=== PATIENT | male | born 1950 | race Caucasian/White ===

== ENCOUNTER 2018-03-06 16:42 | Emergency (ER) | payer MEDICARE, SELFPAY ==
--- NOTE | 2018-03-06 16:43 | DI.RAD.S_ITS ---
PROCEDURE: XR CHEST 1V INDICATIONS: chest pain TECHNIQUE: One view of the chest was acquired. COMPARISON: [facility], CHEST FOR PICC PLACEMENT, 10/02/2017, 13:30. [facility], CHEST 1 VIEW, 10/02/2017, 7:57. FINDINGS: Surgical changes and devices: Left-sided cardiac pacer. AVR. Lungs and pleura: No pleural effusions or pneumothorax. Lungs are clear. Mediastinum: Mediastinal contours appear normal. Heart size is normal. Bones and chest wall: No suspicious bony lesions. Overlying soft tissues appear unremarkable. IMPRESSION: No radiographic evidence of acute cardiopulmonary pathology. Dictated by: Cody Lauren M.D. on 03/06/2018 at 17:07 Approved by: Cody Lauren M.D. on 03/06/2018 at 17:08
[2018-03-06 16:44] VITALS: BP 117/73; PULSE 83; RESP 18; TEMP 36.3; O2SAT 95; BMI 32.8
--- NOTE | 2018-03-06 16:47 | ED.CHESTPAIN ---
HPI - Chest Pain General Chief Complaint: Chest Pain Stated Complaint: Chest Pain Time Seen by Provider: 03/06/18 16:43 Source: patient and EMS Mode of arrival: EMS Limitations: no limitations History of Present Illness HPI narrative: Patient presents to the ED via EMS for evaluation of defibrillator discharge just prior to arrival. He states he had felt largely well over the course of the day immediately prior to the discharge she fell in very odd. He has been otherwise well and free of complaint other than some nausea and dry heaves yesterday. He denies any other history of defibrillator discharge. He denies chest pain or shortness of breath Duration: intermittent Associated symptoms: nausea Related Data Home Medications Medication Instructions Recorded Confirmed citalopram 40 mg PO QDAY #0 03/04/11 digoxin [Lanoxin] 0.25 mg PO Q DAY #0 03/04/11 spironolactone 25 mg PO QDAY #0 03/04/11 terazosin 4 mg PO HS #0 03/04/11 ALBUTEROL SULFATE (#PROVENTIL HFA) 0.09 mg IH #0 07/26/11 ASPIRIN (#ASPIRIN) 81 mg PO QDAY #0 07/26/11 IPRATROPIUM BROMIDE (#IPRATROPIUM 0.02 IH #0 07/26/11 BROMIDE) OXYCODONE HCL (#PERCOLONE / 5 mg PO PRN #0 07/26/11 ROXICODONE) POTASSIUM CHLORIDE (K-NIURKA) 20 meq PO QDAY #0 07/26/11 albuterol sulfate [Proventil HFA] 0.09 mg IH PRN #0 07/26/11 beclomethasone dipropionate [Qvar] 0.08 mg IH PRN #0 07/26/11 pravastatin [Pravachol] 20 mg PO QDAY #0 07/26/11 diazepam 5 mg PO HS #0 09/26/17 Previous Rx's Medication Instructions Recorded amoxicillin-pot clavulanate 875 mg PO BID #10 tab 10/07/17 [Augmentin] prednisone 40 mg PO QDAY #20 tab 10/07/17 Review of Systems Review of Systems All systems reviewed & are unremarkable except as noted in HPI and below Constitutional Denies chills, Denies fever(s), Denies lethargy and Denies weakness Eyes Denies change in vision, Denies eye discharge, Denies irritation and Denies loss of vision Cardiovascular Reports chest pain, Denies dyspnea and Denies dyspnea on exertion Comments: only at time of discharge Respiratory Denies cough, Denies dyspnea, Denies dyspnea on exertion and Denies wheezing Gastrointestinal Gastrointestinal: Denies abdominal pain, Denies change in bowel habits, Denies diarrhea, Denies nausea and Denies vomiting Genitourinary Denies hematuria, Denies flank pain, Denies urinary incontinence and Denies urinary urgency Musculoskeletal Denies back pain, Denies muscle weakness, Denies numbness and Denies tingling Integumentary/Breasts Denies pruritus, Denies erythema, Denies rash and Denies wounds Neurologic Denies loss of vision, Denies numbness, Denies tingling and Denies weakness Allergic/Immunologic Denies wheezing PFSH Medical History Cardiac defibrillator in place (Acute) Surgical History S/P TAVR (transcatheter aortic valve replacement) (Acute) Social History Smoking Status: Former smoker Exam Narrative Exam Narrative: Pleasant 67M in no obvious distress Initial Vital Signs Initial Vital Signs: Vital Signs Temperature 97.4 F L 03/06/18 16:44 Pulse Rate 83 03/06/18 16:44 Respiratory Rate 18 03/06/18 16:44 Blood Pressure 117/73 03/06/18 16:44 Pulse Oximetry 95 03/06/18 16:44 Const General: cooperative and well developed Nutritional Appearance: well nourished Orientation: alert, awake, oriented x3 and not confused [facility] Head: normocephalic and atraumatic Ears: external ears normal and TM's normal bilaterally Nose: external nose normal and No nasal discharge Face and sinus: sinuses nontender, face symmetric, no sinus tenderness and No dry mucous membranes Mouth: oral mucosae normal and moist mucous membranes Teeth and gingiva: dentition normal Throat: tonsils normal and uvula midline Chest Chest: normal inspection of the chest Resp Effort & Inspection: normal respiratory effort, able to speak in complete sentences, no respiratory distress and no use of accessory muscles Auscultation: clear to auscultation bilaterally, no rales, no rhonchi and no wheezes Cardio Rate: regular rate Rhythm: regular rhythm Heart Sounds: no click, no gallops, no murmurs and no rubs Pulses: normal peripheral pulses GI Inspection: non-distended Palpation: soft, no hepatosplenomegaly, No guarding, No pulsatile mass and No tender Auscultation: normal bowel sounds Back/Spine/Pelvis Back: No CVA tenderness Cervical Spine: cervical ROM normal and No pain with cervical ROM Thoracic/Lumbar Spine: thoracic and lumbar spine normal to inspection Skin General: no rashes or lesions noted, No jaundice and No petechiae Neuro General: alert, oriented x3 and no focal motor deficits Speech: speech normal Extrem General: full ROM, no clubbing, cyanosis or edema, no pedal edema and no calf tenderness Course Orders Ordered: ED Orders 03/06/18 16:43 XR chest 1V Stat EKG-12 Lead Stat 03/06/18 16:52 Complete Blood Count AUTO DIFF Stat Comprehensive Metabolic Panel Stat Lipase Stat Troponin with CK Cardiac Panel Stat 03/06/18 17:30 Digoxin Stat Sodium Chloride (Normal Saline 0.9%) 1,000 mls @ 150 mls/hr IV CONT KENNETH Last Admin: 03/06/18 17:11 Dose: 150 mls/hr Discontinued Medications Aspirin (Aspirin Chew) 324 mg PO NOW ONE Stop: 03/06/18 16:43 Last Admin: 03/06/18 17:03 Dose: Reevaluation(s) Reevaluation #1: patient continues to be symptom free. [employer] interrogated Call from interrogation service, notes a rapid V-tach was detected which required a shock. All parameters appear at baseline per interrogator service. Print out suggests VF however. Time: 16:58 Consultations Consultation #1: Discussion with Dr. Soto of [facility] cardiology. She is able to access his records as well as the defibrillator interrogation. She states he was in a rapid V-tach and appropriately discharged. She offers two (equally acceptable) options. First, the patient could be transferred to [facility] for observation. Secondly, increase bisoprolol from 5 mg to 10 mg and follow up closely as an outpatient. Patient is absolutely against the idea of any additional hospitalizations and would highly prefer to go home. Time: 18:04 Vital Signs - 8 hr 03/06/18 16:44 03/06/18 17:00 03/06/18 17:36 Temperature 97.4 F L Pulse Rate 83 81 63 Respiratory Rate 18 22 18 Blood Pressure 117/73 Blood Pressure [Left Arm] 117/48 L 115/56 L Pulse Oximetry 95 95 95 MDM - Chest Pain Medical Records Data Attestation: I reviewed the patient's medical records. Lab Data Attestation: I reviewed the patient's lab results. Result diagrams: 03/06/18 16:52 03/06/18 16:52 Lab Results 03/06/18 03/06/18 03/06/18 Range/Units 16:52 16:52 17:30 WBC 7.0 (4.5-11.0) X10^3/uL RBC 4.26 L (4.5-5.9) X10^6/uL Hgb 13.1 L (13.5-17.5) g/dL Hct 38.3 L (41-53) % MCV 89.9 (80-100) fL MCH 30.7 (26-34) PG MCHC 34.1 (30-36) % RDW 13.5 (11.6-14.8) % Plt Count 143 L (150-400) X10^3/uL Neut % (Auto) 65.6 (50-75) % Lymph % (Auto) 20.4 L (25-40) % [place]yer % (Auto) 10.0 (3-14) % Eos % (Auto) 2.8 (2-4) % Baso % (Auto) 1.2 (0-2) % Neut # (Auto) 4600 (7758-3363) /uL Sodium 140 (137-145) mmol/L Potassium 3.9 (3.4-5.1) mmol/L Chloride 96.0 L (98-107) mmol/L Carbon Dioxide 30.0 (22-32) mmol/L BUN 21.0 H (9-20) mg/dL Creatinine 1.10 (0.66-1.25) mg/dL Estimated GFR > 60.0 (>60) mL/min BUN/Creatinine Ratio 19.1 (6-22) Glucose 187 H (80-110) mg/dL Calcium 9.4 (8.4-10.2) mg/dL Total Bilirubin 0.5 (0.2-1.3) mg/dL AST 27 (17-59) IU/L ALT 34 (21-72) IU/L Alkaline Phosphatase 62 (38-126) U/L Total Creatine Kinase 91 (55-170) U/L Troponin I 0.026 (0.01-0.034) ng/mL Total Protein 7.1 (6.3-8.2) g/dL Albumin 4.4 (3.5-5.0) g/dL Globulin 2.7 (1.7-4.1) g/dL Albumin/Globulin Ratio 1.6 (1.0-2.8) Lipase 69 (23-300) U/L Digoxin 0.9 (0.8-2.0) ng/mL Imaging Data Chest x-ray: Radiologist's impression: PROCEDURE: XR CHEST 1V INDICATIONS: chest pain TECHNIQUE: One view of the chest was acquired. COMPARISON: [facility], , CHEST FOR PICC PLACEMENT, 10/02/2017, 13:30. [facility], CHEST 1 VIEW, 10/02/2017, 7:57. FINDINGS: Surgical changes and devices: Left-sided cardiac pacer. AVR. Lungs and pleura: No pleural effusions or pneumothorax. Lungs are clear. Mediastinum: Mediastinal contours appear normal. Heart size is normal. Bones and chest wall: No suspicious bony lesions. Overlying soft tissues appear unremarkable. IMPRESSION: No radiographic evidence of acute cardiopulmonary pathology. Dictated by: Cody Lauren M.D. on 03/06/2018 at 17:07 Approved by: Cody Lauren M.D. on 03/06/2018 at 17:08 ECG Data Attestation: I personally reviewed and interpreted this ECG as follows: Interpretation: Paced rhythm at 85BPM. NO ectopy NO ST segmental deviation or T wave inversion suggestive of ischemia Pacemaker model: [employer] Pacemaker function: normal pacer function Discharge Plan Departure Patient Disposition: Home, Self-Care Clinical Impression: Defibrillator discharge Instructions: DI for Automatic Cardioverter/Defibrillator Implantation Activity Restrictions/Additional Instructions: *You have been diagnosed with [ ventricular tachycardia and defibrillator discharge ] *What to do: Increase your Bisoprolol (Zebeta) from 5 mg daily to 10 mg daily *Otherwise take medications as directed *Follow up with your Dr. Reyes in the next few days. His office should call you tomorrow *Return to ER if you should have [recurrence of symptoms] [or] any new, worsening or concerning symptoms Prescriptions: No Action terazosin 2 MG capsule 4 mg PO HS Qty: 0 RF: 0 citalopram 20 MG tablet 40 mg PO QDAY Qty: 0 RF: 0 digoxin [Lanoxin] 250 MCG tablet 0.25 mg PO Q DAY Qty: 0 RF: 0 spironolactone 25 MG tablet 25 mg PO QDAY Qty: 0 RF: 0 ALBUTEROL SULFATE (#PROVENTIL HFA) 0.09 mg IH Qty: 0 RF: 0 ASPIRIN (#ASPIRIN) 81 mg PO QDAY Qty: 0 RF: 0 IPRATROPIUM BROMIDE (#IPRATROPIUM BROMIDE) 0.02 IH Qty: 0 RF: 0 POTASSIUM CHLORIDE (K-NIURKA) 20 meq PO QDAY Qty: 0 RF: 0 OXYCODONE HCL (#PERCOLONE / ROXICODONE) 5 mg PO PRN Qty: 0 RF: 0 pravastatin [Pravachol] 20 MG tablet 20 mg PO QDAY Qty: 0 RF: 0 beclomethasone dipropionate [Qvar] 80 MCG/PUFF aerosol 0.08 mg IH PRN Qty: 0 RF: 0 albuterol sulfate [Proventil HFA] 90 MCG/PUFF HFA aerosol inhaler 0.09 mg IH PRN Qty: 0 RF: 0 diazepam 5 MG tablet 5 mg PO HS Qty: 0 RF: 0 amoxicillin-pot clavulanate [Augmentin] 875 MG/125 MG tablet 875 mg PO BID Qty: 10 RF: 0 prednisone 20 MG tablet 40 mg PO QDAY Qty: 20 RF: 0
[2018-03-06 17:00] VITALS: BP 117/48; PULSE 81; RESP 22; O2SAT 95
[2018-03-06 17:00] LABS: Add Manual Diff / Slide Review NO; Basophils Percent Auto 1.2 % (0-2); Eosinophils Percent Auto 2.8 % (2-4); Hematocrit 38.3 % (41-53); Hemoglobin 13.1 g/dL (13.5-17.5); Lymphocytes Percent Auto 20.4 % (25-40); Mean Corpuscular HGB Conc 34.1 % (30-36); Mean Corpuscular Hemoglobin 30.7 PG (26-34); Mean Corpuscular Volume 89.9 fL (80-100); Neutrophils Absolute Auto 4600 /uL (3000-5900); Neutrophils Percent Auto 65.6 % (50-75); Platelet Count 143 X10^3/uL (150-400); Red Blood Cell Count 4.26 X10^6/uL (4.5-5.9); Red Cell Distribution Width 13.5 % (11.6-14.8)
[2018-03-06] MEDS: SODIUM CHLORIDE 0.9% 1,000 ML 150 ML IV (17:11)
[2018-03-06 17:18] LABS: Alanine Aminotransferase 34 IU/L (21-72); Albumin 4.4 g/dL (3.5-5.0); Albumin Globulin Ratio 1.6 (1.0-2.8); Alkaline Phosphatase 62 U/L (38-126); Aspartate Aminotransferase 27 IU/L (17-59); BUN Creatinine Ratio 19.1 (6-22); Bilirubin Total 0.5 mg/dL (0.2-1.3); Calcium 9.4 mg/dL (8.4-10.2); Creatine Kinase 91 U/L (55-170); Estimated Glomerular Filt Rate > 60.0 mL/min (>60); Globulin 2.7 g/dL (1.7-4.1); Glucose 187 mg/dL (80-110); HEMOLYSIS < 15 (0-50); Lipase 69 U/L (23-300); Potassium 3.9 mmol/L (3.4-5.1); Sodium 140 mmol/L (137-145); Total Protein 7.1 g/dL (6.3-8.2)
--- NOTE | 2018-03-06 17:21 | PC.NURSE ---
Pt lung sounds have expiratory wheezing throughout. He states he is at baseline, as he has a history of COPD. States yesterday he felt nauseated and was vomiting throughout the day. [place] sinus pressure and coughed up some blood tinted sputum. Denies any nausea at this time and denies need for breathing treatment. Oxygen sat at 95% on room air.
--- NOTE | 2018-03-06 17:25 | PC.NURSE ---
Pacemaker interrogation performed immediately upon arrival to ED. Patient tolerated procedure well.
[2018-03-06 17:27] LABS: Troponin I 0.026 ng/mL (0.01-0.034)
[2018-03-06 17:36] VITALS: BP 115/56; PULSE 63; RESP 18; O2SAT 95
[2018-03-06 17:48] LABS: Digoxin 0.9 ng/mL (0.8-2.0)
[2018-03-06 18:09] VITALS: BP 125/48; PULSE 80; RESP 16; O2SAT 95
== END 2018-03-06 18:09 | disposition home or self-care (01) ==
PROVIDERS: Emergency Provider Emergency Medicine; PCP Internal Medicine
DX: Z45.02 Encounter for adjustment and management of automatic implantable cardiac defibrillator (principal)
CPT/HCPCS: 36415; 36591; 71045; 80053; 80162; 82550; 82553; 83690; 84484; 85025; 93005; 99283; 99285

== ENCOUNTER 2018-06-03 10:00 | Inpatient (IN) | payer MEDICARE, MEDICAID, SELFPAY ==
[2018-06-03] VITALS (21 sets, daily range): BP systolic 121–136; BP diastolic 46–68; PULSE 90–104; RESP 12–30; TEMP 29.7–37.3; O2SAT 91–100; BMI 34.6
[2018-06-03] MEDS: ALBUTEROL/IPRATROPIUM 3 ML AMPUL INH ×3 (10:19→16:09)
[2018-06-03] MEDS: ALBUTEROL 2.5 MG/3 ML NEB (ADULT) INH ×5 (10:30→12:18)
--- NOTE | 2018-06-03 10:34 | DI.RAD.S_ITS ---
PROCEDURE: XR FEMUR RT MIN 2V INDICATIONS: Fall out of wheelchair pain in right femur TECHNIQUE: 5 views of the femur were acquired. COMPARISON: [facility], CR, XR FEMUR 2+ VIEWS RIGHT, 05/22/2018, 14:41. FINDINGS: Bones: Again noted is prior internal fixation of right proximal femoral shaft. Angulation and displacement at right femoral neck fracture site is again seen. Bent intramedullary itzel at the level of the compression screw is again noted and unchanged. No gross new fracture or dislocation is seen. Surgical hardware in mid to distal right femoral shaft are intact. Soft tissues: No suspicious soft tissue calcifications or masses. IMPRESSION: No gross new right femoral fracture or dislocation. Stable bent appearance of proximal intramedullary femoral itzel. Stable right femoral alignment. Dictated by: Memo Glez M.D. on 06/03/2018 at 11:05 Approved by: Memo Glez M.D. on 06/03/2018 at 11:07
--- NOTE | 2018-06-03 10:34 | DI.RAD.S_ITS ---
PROCEDURE: XR CHEST 1V INDICATIONS: COPD exacerbation Increased shortness of breath TECHNIQUE: One view of the chest was acquired. COMPARISON: [facility], CR, XR CHEST 1V, 03/06/2018, 16:53. FINDINGS: Surgical changes and devices: Left chest wall cardiac device and prosthetic aortic valve position is unchanged. Lungs and pleura: No pleural effusions or pneumothorax. Lungs are clear. Mediastinum: Mild pulmonary vascular congestion is seen. Cardiac silhouette is enlarged.. Bones and chest wall: No suspicious bony lesions. Overlying soft tissues appear unremarkable. IMPRESSION: Mild congestive changes. No definite focal infiltrate. Dictated by: Memo Glez M.D. on 06/03/2018 at 11:08 Approved by: Memo Glez M.D. on 06/03/2018 at 11:09
--- NOTE | 2018-06-03 10:37 | ED.FALL ---
HPI - Fall <NICOLE Deleon - Last Filed: 06/03/18 20:54> General Chief Complaint: Fall Stated Complaint: FELL HIT HEAD, PIN FELL OUT OF RT LEG, FROM SURG Time Seen by Provider: 06/03/18 10:18 Source: patient and family Mode of arrival: wheelchair Limitations: no limitations History of Present Illness HPI Narrative: 67-year-old male with history of COPD and right femur fracture here for complaint of ground level fall. He states that he fell asleep in his wheelchair causing him to fall forward states that he hit the left side of his face earlier today no loss of consciousness. No nausea or vomiting. He does report increased pain into his right femur area where he is known to have a fracture and bent intramedullary itzel and is currently awaiting surgery later this month to repair. He denies any other injuries. He does also report that he is having increased shortness of breath and wheezing over the past couple of weeks. He states that he has completed a round of prednisone and azithromycin prescribed by primary care last week. He denies any fevers or chills. No chest pain. MD complaint: fall Related Data Home Medications Medication Instructions Recorded Confirmed spironolactone 25 mg PO QDAY #0 03/04/11 06/03/18 terazosin 6 mg PO BEDTIME #0 03/04/11 06/03/18 aspirin 81 mg PO DAILY #0 07/26/11 06/03/18 potassium chloride 20 meq PO DAILY #0 07/26/11 06/03/18 diazepam 5 mg PO Q8H PRN #0 09/26/17 06/03/18 albuterol sulfate 3 ml INHALATION QID PRN 06/03/18 06/03/18 albuterol sulfate [Ventolin HFA] 2 puff INHALATION Q4H PRN 06/03/18 06/03/18 bisoprolol fumarate 5 mg PO DAILY 06/03/18 06/03/18 budesonide 0.25 mg INHALATION Q12H 06/03/18 06/03/18 budesonide-formoterol [Symbicort] 2 puff INHALATION BID 06/03/18 06/03/18 calcium carbonate 1 tab PO DAILY 06/03/18 06/03/18 cholecalciferol (vitamin D3) 2,000 unit PO DAILY 06/03/18 06/03/18 [Vitamin D3] citalopram 40 mg PO DAILY 06/03/18 06/03/18 codeine-guaifenesin [Cheratussin 5 ml PO Q4H 06/03/18 06/03/18 AC] colchicine [Colcrys] See Label Instructions .ROUTE 06/03/18 06/03/18 .COMPLEX PRN digoxin 1 tab PO DAILY 06/03/18 06/03/18 furosemide 80 mg PO DAILY 06/03/18 06/03/18 indomethacin 50 mg PO TID 06/03/18 06/03/18 ipratropium bromide 2.5 ml INHALATION QID PRN 06/03/18 06/03/18 ipratropium-albuterol 3 ml INHALATION Q6H 06/03/18 06/03/18 lisinopril 1 tab PO DAILY 06/03/18 06/03/18 loratadine 10 mg PO DAILY 06/03/18 06/03/18 naproxen 500 mg PO BID PRN 06/03/18 06/03/18 nystatin 5 ml PO TID 06/03/18 06/03/18 oxycodone 5 mg PO Q6H PRN 06/03/18 06/03/18 pravastatin 40 mg PO DAILY 06/03/18 06/03/18 Allergies Allergy/AdvReac Type Severity Reaction Status Date / Time No Known Drug Allergies Allergy Verified 06/03/18 14:31 Review of Systems <NICOLE Deleon - Last Filed: 06/03/18 20:54> Constitutional Denies chills, Denies fever(s), Denies lethargy and Denies weakness Eyes Denies change in vision, Denies eye discharge, Denies irritation and Denies loss of vision ENT Ears, Nose, Mouth, and Throat: Denies change in voice, Denies neck pain and Denies sore throat Cardiovascular Denies chest pain, Denies irregular heart rhythm, Denies lightheadedness, Denies palpitations, Reports dyspnea and Denies orthopnea Respiratory Reports dyspnea and Reports wheezing Gastrointestinal Gastrointestinal: Denies abdominal pain, Denies change in bowel habits, Denies diarrhea, Denies nausea and Denies vomiting Genitourinary Denies hematuria, Denies flank pain, Denies urinary incontinence and Denies urinary urgency Musculoskeletal Denies neck pain Comments: Right thigh pain Integumentary/Breasts Denies pruritus, Denies erythema, Denies rash and Denies wounds Neurologic Denies confusion, Denies loss of vision and Denies weakness Psychiatric Denies anxiety, Denies confusion, Denies depression, Denies homicidal ideation and Denies suicidal ideation Endocrine Denies palpitations Hematologic/Lymphatic Denies easy bruising Allergic/Immunologic Reports wheezing Exam <NICOLE Deleon - Last Filed: 06/03/18 20:54> Initial Vital Signs Initial Vital Signs: Vital Signs Pulse Rate 94 H 06/03/18 10:15 Respiratory Rate 24 06/03/18 10:15 Blood Pressure 131/65 H 06/03/18 10:15 Pulse Oximetry 95 06/03/18 10:15 Const General: cooperative and well developed Nutritional Appearance: well nourished Orientation: alert, awake, oriented x3 and not confused [facility] Mouth: oral mucosae normal, oropharynx normal and moist mucous membranes Eyes Conjunctivae: conjunctivae normal Sclera: sclerae normal Pupils: PERRL EOM: EOM intact bilaterally Resp Effort & Inspection: normal respiratory effort, able to speak in complete sentences, no respiratory distress and no use of accessory muscles Auscultation: no rales, rhonchi and wheezes Cardio Rate: regular rate Rhythm: regular rhythm Heart Sounds: no click, no gallops, no murmurs and no rubs Skin General: no rashes or lesions noted, No jaundice and No petechiae Neuro General: alert, oriented x3, gait normal and no focal motor deficits Speech: speech normal Extrem Other: Right lower extremity with no signs of trauma. Tenderness to the right upper thigh area on palpation. No ecchymosis. No open lesions. Distal sensation is intact. Bilateral lower extremities with +2 edema distal cap refill less than 2 sec. Distal range of motion intact to both lower extremities <Meir Sharpe DO - Last Filed: 06/04/18 19:28> Initial Vital Signs Initial Vital Signs: Vital Signs Pulse Rate 94 H 06/03/18 10:15 Respiratory Rate 24 06/03/18 10:15 Blood Pressure 131/65 H 06/03/18 10:15 Pulse Oximetry 95 06/03/18 10:15 Course <NICOLE Deleon - Last Filed: 06/03/18 20:54> Orders Ordered: ED Orders 06/04/18 14:49 Consult to Occupational Therapy Evaluate & Treat Consult to Physical Therapy Evaluate & Treat Albuterol (Ventolin) 2.5 mg INH QID PRN PRN Reason: breathing treatment Albuterol/Ipratropium (Duoneb) 3 ml INH RTQ6HR COUNTS INCLUDE 234 BEDS AT [facility] Aspirin (Aspirin Ec) 81 mg PO DAILY COUNTS INCLUDE 234 BEDS AT [facility] Last Admin: 06/04/18 08:32 Dose: 81 mg Bisoprolol Fumarate (Zebeta) 5 mg PO DAILY COUNTS INCLUDE 234 BEDS AT [facility] Last Admin: 06/04/18 08:31 Dose: 5 mg Budesonide (Pulmicort) 0.25 mg INH RTBID COUNTS INCLUDE 234 BEDS AT [facility] Last Admin: 06/04/18 11:31 Dose: Not Given Admin: 06/03/18 20:01 Dose: 0.25 mg Citalopram Hydrobromide (Celexa) 40 mg PO DAILY COUNTS INCLUDE 234 BEDS AT [facility] Last Admin: 06/04/18 08:30 Dose: 40 mg Diazepam (Valium) 5 mg PO Q8H PRN PRN Reason: Anxiety Last Admin: 06/04/18 09:33 Dose: 5 mg Admin: 06/04/18 00:05 Dose: 5 mg Admin: 06/03/18 14:41 Dose: 5 mg Digoxin (Lanoxin) 0.125 mg PO DAILY COUNTS INCLUDE 234 BEDS AT [facility] Last Admin: 06/04/18 08:32 Dose: 0.125 mg Enoxaparin Sodium (Lovenox) 40 mg SUBCUT DAILY COUNTS INCLUDE 234 BEDS AT [facility] Last Admin: 06/04/18 09:31 Dose: 40 mg Admin: 06/03/18 17:50 Dose: 40 mg Furosemide (Lasix) 80 mg PO DAILY COUNTS INCLUDE 234 BEDS AT [facility] Last Admin: 06/04/18 08:30 Dose: 80 mg Levofloxacin (Levaquin) 750 mg in 150 mls @ 100 mls/hr IV Q24H COUNTS INCLUDE 234 BEDS AT [facility] Last Infusion: 06/04/18 15:54 Dose: 0 mls/hr Admin: 06/04/18 13:38 Dose: 100 mls/hr Infusion: 06/03/18 16:20 Dose: 100 mls/hr Admin: 06/03/18 14:41 Dose: 100 mls/hr Lisinopril (Zestril) 2.5 mg PO DAILY COUNTS INCLUDE 234 BEDS AT [facility] Last Admin: 06/04/18 08:31 Dose: 2.5 mg Loratadine (Claritin) 10 mg PO DAILY COUNTS INCLUDE 234 BEDS AT [facility] Last Admin: 06/03/18 21:47 Dose: 10 mg Methylprednisolone (Solu-Medrol) 40 mg IV Q8HR COUNTS INCLUDE 234 BEDS AT [facility] Last Admin: 06/04/18 13:41 Dose: 40 mg Admin: 06/04/18 05:13 Dose: 40 mg Admin: 06/03/18 21:46 Dose: 40 mg Non-Formulary Medication ( Budesonide- Formoterol) 2 puff INHALATION BID COUNTS INCLUDE 234 BEDS AT [facility] Last Admin: 06/04/18 11:31 Dose: Not Given Admin: 06/04/18 11:31 Dose: Not Given Nystatin (Mycostatin Susp) 500,000 unit PO TID COUNTS INCLUDE 234 BEDS AT [facility] Last Admin: 06/04/18 15:08 Dose: 500,000 unit Admin: 06/04/18 08:40 Dose: 500,000 unit Admin: 06/03/18 21:44 Dose: 500,000 unit Admin: 06/03/18 15:30 Dose: Not Given Oxycodone HCl (Percolone) 5 mg PO Q4HR PRN PRN Reason: Pain, Severe (7-10) Last Admin: 06/04/18 18:12 Dose: 5 mg Pantoprazole Sodium (Protonix) 40 mg IV DAILY COUNTS INCLUDE 234 BEDS AT [facility] Last Admin: 06/04/18 08:32 Dose: 40 mg Admin: 06/03/18 17:51 Dose: 40 mg Potassium Chloride (Klor-Con M20) 20 meq PO DAILY COUNTS INCLUDE 234 BEDS AT [facility] Last Admin: 06/04/18 12:02 Dose: 20 meq Pravastatin Sodium (Pravachol) 40 mg PO BEDTIME COUNTS INCLUDE 234 BEDS AT [facility] Last Admin: 06/03/18 21:46 Dose: 40 mg Sodium Chloride (Normal Saline 0.9% Flush) 10 ml IV BID COUNTS INCLUDE 234 BEDS AT [facility] Last Admin: 06/04/18 08:42 Dose: 10 ml Sodium Chloride (Normal Saline 0.9% Flush) 10 ml IV PRN PRN PRN Reason: Flush Last Admin: 06/04/18 05:13 Dose: 10 ml Spironolactone (Aldactone) 25 mg PO DAILY COUNTS INCLUDE 234 BEDS AT [facility] Last Admin: 06/04/18 08:31 Dose: 25 mg Terazosin HCl (Hytrin) 1 mg PO BEDTIME COUNTS INCLUDE 234 BEDS AT [facility] Last Admin: 06/03/18 21:45 Dose: 1 mg Terazosin HCl (Hytrin) 5 mg PO BEDTIME COUNTS INCLUDE 234 BEDS AT [facility] Last Admin: 06/03/18 21:46 Dose: 5 mg Vitamin D (Vitamin D3) 2,000 unit PO DAILY COUNTS INCLUDE 234 BEDS AT [facility] Last Admin: 06/04/18 08:30 Dose: 2,000 unit Discontinued Medications Albuterol (Ventolin) 2.5 mg INH NOW PRN PRN Reason: Wheezing Last Admin: 06/03/18 12:18 Dose: 2.5 mg Admin: 06/03/18 12:17 Dose: 2.5 mg Admin: 06/03/18 12:16 Dose: 2.5 mg Admin: 06/03/18 12:15 Dose: 2.5 mg Admin: 06/03/18 10:30 Dose: 2.5 mg Albuterol/Ipratropium (Duoneb) 3 ml INH NOW ONE Stop: 06/03/18 10:19 Last Admin: 06/03/18 10:19 Dose: 3 ml Albuterol/Ipratropium (Duoneb) 3 ml INH Q6H COUNTS INCLUDE 234 BEDS AT [facility] Last Admin: 06/04/18 13:26 Dose: 3 ml Admin: 06/04/18 08:39 Dose: 3 ml Admin: 06/04/18 00:22 Dose: 3 ml Admin: 06/03/18 16:09 Dose: 3 ml Admin: 06/03/18 10:27 Dose: 3 ml Sodium Chloride (Normal Saline 0.9%) 1,000 mls @ 150 mls/hr IV CONT COUNTS INCLUDE 234 BEDS AT [facility] Last Admin: 06/03/18 13:54 Dose: Not Given Lorazepam (Ativan) 1 mg IV NOW ONE Stop: 06/03/18 12:50 Last Admin: 06/03/18 12:54 Dose: 1 mg Methylprednisolone (Solu-Medrol 125 Mg Vial) 125 mg IV NOW ONE Stop: 06/03/18 11:50 Last Admin: 06/03/18 11:58 Dose: 125 mg Oxycodone HCl (Percolone) 5 mg PO Q6H PRN PRN Reason: Pain, Severe Last Admin: 06/04/18 13:38 Dose: 5 mg Admin: 06/04/18 09:31 Dose: 5 mg Admin: 06/03/18 22:01 Dose: 5 mg Admin: 06/03/18 14:40 Dose: 5 mg Oxycodone HCl (Percolone) 5 mg PO Q4HR COUNTS INCLUDE 234 BEDS AT [facility] Last Admin: 06/04/18 18:33 Dose: Vital Signs - 8 hr 06/04/18 12:40 06/04/18 12:41 06/04/18 13:26 Temperature 98 F Pulse Rate 75 85 Respiratory Rate 24 16 Blood Pressure 114/52 L Pulse Oximetry 92 96 96 06/04/18 15:33 Temperature 98.3 F Pulse Rate 83 Respiratory Rate 25 H Blood Pressure 115/55 L Pulse Oximetry 97 <Meir Sharpe, DO - Last Filed: 06/04/18 19:28> Orders Ordered: ED Orders 06/04/18 14:49 Consult to Occupational Therapy Evaluate & Treat Consult to Physical Therapy Evaluate & Treat Albuterol (Ventolin) 2.5 mg INH QID PRN PRN Reason: breathing treatment Albuterol/Ipratropium (Duoneb) 3 ml INH RTQ6HR COUNTS INCLUDE 234 BEDS AT [facility] Aspirin (Aspirin Ec) 81 mg PO DAILY COUNTS INCLUDE 234 BEDS AT [facility] Last Admin: 06/04/18 08:32 Dose: 81 mg Bisoprolol Fumarate (Zebeta) 5 mg PO DAILY COUNTS INCLUDE 234 BEDS AT [facility] Last Admin: 06/04/18 08:31 Dose: 5 mg Budesonide (Pulmicort) 0.25 mg INH RTBID COUNTS INCLUDE 234 BEDS AT [facility] Last Admin: 06/04/18 11:31 Dose: Not Given Admin: 06/03/18 20:01 Dose: 0.25 mg Citalopram Hydrobromide (Celexa) 40 mg PO DAILY COUNTS INCLUDE 234 BEDS AT [facility] Last Admin: 06/04/18 08:30 Dose: 40 mg Diazepam (Valium) 5 mg PO Q8H PRN PRN Reason: Anxiety Last Admin: 06/04/18 09:33 Dose: 5 mg Admin: 06/04/18 00:05 Dose: 5 mg Admin: 06/03/18 14:41 Dose: 5 mg Digoxin (Lanoxin) 0.125 mg PO DAILY COUNTS INCLUDE 234 BEDS AT [facility] Last Admin: 06/04/18 08:32 Dose: 0.125 mg Enoxaparin Sodium (Lovenox) 40 mg SUBCUT DAILY COUNTS INCLUDE 234 BEDS AT [facility] Last Admin: 06/04/18 09:31 Dose: 40 mg Admin: 06/03/18 17:50 Dose: 40 mg Furosemide (Lasix) 80 mg PO DAILY COUNTS INCLUDE 234 BEDS AT [facility] Last Admin: 06/04/18 08:30 Dose: 80 mg Levofloxacin (Levaquin) 750 mg in 150 mls @ 100 mls/hr IV Q24H COUNTS INCLUDE 234 BEDS AT [facility] Last Infusion: 06/04/18 15:54 Dose: 0 mls/hr Admin: 06/04/18 13:38 Dose: 100 mls/hr Infusion: 06/03/18 16:20 Dose: 100 mls/hr Admin: 06/03/18 14:41 Dose: 100 mls/hr Lisinopril (Zestril) 2.5 mg PO DAILY COUNTS INCLUDE 234 BEDS AT [facility] Last Admin: 06/04/18 08:31 Dose: 2.5 mg Loratadine (Claritin) 10 mg PO DAILY COUNTS INCLUDE 234 BEDS AT [facility] Last Admin: 06/03/18 21:47 Dose: 10 mg Methylprednisolone (Solu-Medrol) 40 mg IV Q8HR COUNTS INCLUDE 234 BEDS AT [facility] Last Admin: 06/04/18 13:41 Dose: 40 mg Admin: 06/04/18 05:13 Dose: 40 mg Admin: 06/03/18 21:46 Dose: 40 mg Non-Formulary Medication ( Budesonide- Formoterol) 2 puff INHALATION BID COUNTS INCLUDE 234 BEDS AT [facility] Last Admin: 06/04/18 11:31 Dose: Not Given Admin: 06/04/18 11:31 Dose: Not Given Nystatin (Mycostatin Susp) 500,000 unit PO TID COUNTS INCLUDE 234 BEDS AT [facility] Last Admin: 06/04/18 15:08 Dose: 500,000 unit Admin: 06/04/18 08:40 Dose: 500,000 unit Admin: 06/03/18 21:44 Dose: 500,000 unit Admin: 06/03/18 15:30 Dose: Not Given Oxycodone HCl (Percolone) 5 mg PO Q4HR PRN PRN Reason: Pain, Severe (7-10) Last Admin: 06/04/18 18:12 Dose: 5 mg Pantoprazole Sodium (Protonix) 40 mg IV DAILY COUNTS INCLUDE 234 BEDS AT [facility] Last Admin: 06/04/18 08:32 Dose: 40 mg Admin: 06/03/18 17:51 Dose: 40 mg Potassium Chloride (Klor-Con M20) 20 meq PO DAILY COUNTS INCLUDE 234 BEDS AT [facility] Last Admin: 06/04/18 12:02 Dose: 20 meq Pravastatin Sodium (Pravachol) 40 mg PO BEDTIME COUNTS INCLUDE 234 BEDS AT [facility] Last Admin: 06/03/18 21:46 Dose: 40 mg Sodium Chloride (Normal Saline 0.9% Flush) 10 ml IV BID COUNTS INCLUDE 234 BEDS AT [facility] Last Admin: 06/04/18 08:42 Dose: 10 ml Sodium Chloride (Normal Saline 0.9% Flush) 10 ml IV PRN PRN PRN Reason: Flush Last Admin: 06/04/18 05:13 Dose: 10 ml Spironolactone (Aldactone) 25 mg PO DAILY COUNTS INCLUDE 234 BEDS AT [facility] Last Admin: 06/04/18 08:31 Dose: 25 mg Terazosin HCl (Hytrin) 1 mg PO BEDTIME KNENETH Last Admin: 06/03/18 21:45 Dose: 1 mg Terazosin HCl (Hytrin) 5 mg PO BEDTIME KENNETH Last Admin: 06/03/18 21:46 Dose: 5 mg Vitamin D (Vitamin D3) 2,000 unit PO DAILY KENNETH Last Admin: 06/04/18 08:30 Dose: 2,000 unit Discontinued Medications Albuterol (Ventolin) 2.5 mg INH NOW PRN PRN Reason: Wheezing Last Admin: 06/03/18 12:18 Dose: 2.5 mg Admin: 06/03/18 12:17 Dose: 2.5 mg Admin: 06/03/18 12:16 Dose: 2.5 mg Admin: 06/03/18 12:15 Dose: 2.5 mg Admin: 06/03/18 10:30 Dose: 2.5 mg Albuterol/Ipratropium (Duoneb) 3 ml INH NOW ONE Stop: 06/03/18 10:19 Last Admin: 06/03/18 10:19 Dose: 3 ml Albuterol/Ipratropium (Duoneb) 3 ml INH Q6H KENNETH Last Admin: 06/04/18 13:26 Dose: 3 ml Admin: 06/04/18 08:39 Dose: 3 ml Admin: 06/04/18 00:22 Dose: 3 ml Admin: 06/03/18 16:09 Dose: 3 ml Admin: 06/03/18 10:27 Dose: 3 ml Sodium Chloride (Normal Saline 0.9%) 1,000 mls @ 150 mls/hr IV CONT COUNTS INCLUDE 234 BEDS AT [facility] Last Admin: 06/03/18 13:54 Dose: Not Given Lorazepam (Ativan) 1 mg IV NOW ONE Stop: 06/03/18 12:50 Last Admin: 06/03/18 12:54 Dose: 1 mg Methylprednisolone (Solu-Medrol 125 Mg Vial) 125 mg IV NOW ONE Stop: 06/03/18 11:50 Last Admin: 06/03/18 11:58 Dose: 125 mg Oxycodone HCl (Percolone) 5 mg PO Q6H PRN PRN Reason: Pain, Severe Last Admin: 06/04/18 13:38 Dose: 5 mg Admin: 06/04/18 09:31 Dose: 5 mg Admin: 06/03/18 22:01 Dose: 5 mg Admin: 06/03/18 14:40 Dose: 5 mg Oxycodone HCl (Percolone) 5 mg PO Q4HR COUNTS INCLUDE 234 BEDS AT [facility] Last Admin: 06/04/18 18:33 Dose: Vital Signs - 8 hr 06/04/18 12:40 06/04/18 12:41 06/04/18 13:26 Temperature 98 F Pulse Rate 75 85 Respiratory Rate 24 16 Blood Pressure 114/52 L Pulse Oximetry 92 96 96 06/04/18 15:33 Temperature 98.3 F Pulse Rate 83 Respiratory Rate 25 H Blood Pressure 115/55 L Pulse Oximetry 97 MDM - Fall <NICOLE Deleon - Last Filed: 06/03/18 20:54> Lab Data Result diagrams: 06/03/18 11:14 06/03/18 11:14 Lab Results 06/03/18 06/03/18 06/03/18 Range/Units 11:14 11:14 12:09 WBC 10.5 (4.5-11.0) X10^3/uL RBC 3.64 L (4.5-5.9) X10^6/uL Hgb 11.3 L (13.5-17.5) g/dL Hct 32.9 L (41-53) % MCV 90.1 (80-100) fL MCH 30.9 (26-34) PG MCHC 34.3 (30-36) % RDW 13.6 (11.6-14.8) % Plt Count 178 (150-400) X10^3/uL Neut % (Auto) 81.4 H (50-75) % Lymph % (Auto) 6.2 L (25-40) % Dorado % (Auto) 9.3 (3-14) % Eos % (Auto) 2.2 (2-4) % Baso % (Auto) 0.9 (0-2) % Neut # (Auto) 8600 H (1352-4370) /uL ABG pH 7.38 (7.35-7.45) ABG pCO2 57.6 H (35-45) mmHg ABG pO2 120 H (80-105) mmHg ABG HCO3 34 H (23-27) mmol/L ABG Total CO2 35 H (23-27) mmol/L ABG O2 Saturation 98 (95-100) % ABG Base Excess 8.0 H (-2-3) mmol/L FiO2 0.44 Sodium 131 L (137-145) mmol/L Potassium 5.2 H (3.4-5.1) mmol/L Chloride 91 L (98-107) mmol/L Carbon Dioxide 34 H (22-32) mmol/L BUN 25 H (9-20) mg/dL Creatinine 1.20 (0.66-1.25) mg/dL Estimated GFR > 60.0 (>60) mL/min BUN/Creatinine Ratio 20.8 (6-22) Glucose 136 H (80-110) mg/dL Calcium 9.4 (8.4-10.2) mg/dL Total Bilirubin 0.4 (0.2-1.3) mg/dL AST 24 (17-59) IU/L ALT 28 (21-72) IU/L Alkaline Phosphatase 87 (38-126) U/L Total Creatine Kinase 98 (55-170) U/L Troponin I 0.036 H (0.01-0.034) ng/mL B-Natriuretic Peptide 250.0 H (<100) Total Protein 6.6 (6.3-8.2) g/dL Albumin 4.0 (3.5-5.0) g/dL Globulin 2.6 (1.7-4.1) g/dL Albumin/Globulin Ratio 1.5 (1.0-2.8) Nasal Screen MRSA (PCR) (Negative) 06/03/18 06/04/18 Range/Units 13:30 09:07 WBC (4.5-11.0) X10^3/uL RBC (4.5-5.9) X10^6/uL Hgb (13.5-17.5) g/dL Hct (41-53) % MCV (80-100) fL MCH (26-34) PG MCHC (30-36) % RDW (11.6-14.8) % Plt Count (150-400) X10^3/uL Neut % (Auto) (50-75) % Lymph % (Auto) (25-40) % Dorado % (Auto) (3-14) % Eos % (Auto) (2-4) % Baso % (Auto) (0-2) % Neut # (Auto) (9934-0866) /uL ABG pH 7.46 H (7.35-7.45) ABG pCO2 47.1 H (35-45) mmHg ABG pO2 55 L (80-105) mmHg ABG HCO3 33 H (23-27) mmol/L ABG Total CO2 35 H (23-27) mmol/L ABG O2 Saturation 89 L (95-100) % ABG Base Excess 9.0 H (-2-3) mmol/L FiO2 21 Sodium (137-145) mmol/L Potassium (3.4-5.1) mmol/L Chloride (98-107) mmol/L Carbon Dioxide (22-32) mmol/L BUN (9-20) mg/dL Creatinine (0.66-1.25) mg/dL Estimated GFR (>60) mL/min BUN/Creatinine Ratio (6-22) Glucose (80-110) mg/dL Calcium (8.4-10.2) mg/dL Total Bilirubin (0.2-1.3) mg/dL AST (17-59) IU/L ALT (21-72) IU/L Alkaline Phosphatase (38-126) U/L Total Creatine Kinase (55-170) U/L Troponin I (0.01-0.034) ng/mL B-Natriuretic Peptide (<100) Total Protein (6.3-8.2) g/dL Albumin (3.5-5.0) g/dL Globulin (1.7-4.1) g/dL Albumin/Globulin Ratio (1.0-2.8) Nasal Screen MRSA (PCR) Negative for mrsa (Negative) Imaging Data CT scan - head: Radiologist's impression: Signed Patient: Gavin Rucker MR#: [id number] : 1950 Acct:[id number] Age/Sex: 67 / M Date of Service: 06/03/18 Loc: ED Accession Number: [id number] Procedure: CT head/brain wo con Ordering Provider: Emil Padilla PROCEDURE: CT HEAD/BRAIN WO CON INDICATIONS: Fall out of wheelchair hitting left side of face TECHNIQUE: Noncontrast 4.5 mm thick angled axial sections acquired from the foramen magnum to the vertex, with coronal and sagittal reformats. For radiation dose reduction, the following was used: automated exposure control, adjustment of mA and/or kV according to patient size. COMPARISON: [facility] [place], CT, HEAD WITHOUT CONTRAST, 03/08/2014, 19:01. FINDINGS: Image quality: Excellent. CSF spaces: Basal cisterns are patent. No extra-axial fluid collections. The ventricles are symmetric in size and shape. Brain: No intracranial bleeds or masses. There is cerebral volume loss for age, with resultant ventricular and sulcal prominence. There are periventricular and deep white matter chronic small vessel ischemic changes. There is intracranial internal carotid artery atherosclerosis. Skull and face: Calvarium and visualized facial bones appear intact, without suspicious lesions. Sinuses: Visualized sinuses and mastoids are clear. IMPRESSION: 1. No acute intracranial abnormality. 2. No visible fractures or sinus opacifications. 3. Age related atrophy, chronic deep white matter ischemic changes and vascular calcifications. Dictated by: Leo Vines M.D. on 06/03/2018 at 11:19 Approved by: Leo Vines M.D. on 06/03/2018 at 11:22 facial bones: Radiologist's impression: PROCEDURE: CT FACIAL BONES WO CON INDICATIONS: Fall out of wheelchair hitting left side of face TECHNIQUE: Noncontrast 2.5 mm thick axial images acquired from the mandible through the frontal sinuses, with coronal and sagittal reformatting. For radiation dose reduction, the following was used: automated exposure control, adjustment of mA and/or kV according to patient size. COMPARISON: None. FINDINGS: Image quality: The head is rotated within the gantry.. Bones and teeth: Orbital humphrey are intact. Sinus humphrey show no fracture or deformity. Nasal bones and septum are intact. Visualized portions of the mandible demonstrate no fractures or subluxation. Zygomatic arches are intact. Pterygoid plates are intact. Visualized portions of the skull base and auditory canals are intact. The visualized cervical spine appears intact, degenerative disc disease at C4-5 Sinuses: Paranasal sinuses are aerated, without fluid levels, mucosal thickening, or mucoceles. Mastoid air cells are aerated. Soft tissues: No edema, masses, or fluid collections. No enlarged lymph nodes. No soft tissue lacerations or debris. Vascular: Visualized vascular structures appear normal in the absence of contrast. Bony vascular foramina and canals are intact. IMPRESSION: 1. No facial bone fractures. 2. No sinus opacification. 3. No apparent soft tissue hematoma Dictated by: Leo Vines M.D. on 06/03/2018 at 11:22 Approved by: Leo Vines M.D. on 06/03/2018 at 11:26 Right femur: Radiologist's impression: PROCEDURE: XR FEMUR RT MIN 2V INDICATIONS: Fall out of wheelchair pain in right femur TECHNIQUE: 5 views of the femur were acquired. COMPARISON: [facility], , XR FEMUR 2+ VIEWS RIGHT, 05/22/2018, 14:41. FINDINGS: Bones: Again noted is prior internal fixation of right proximal femoral shaft. Angulation and displacement at right femoral neck fracture site is again seen. Bent intramedullary itzel at the level of the compression screw is again noted and unchanged. No gross new fracture or dislocation is seen. Surgical hardware in mid to distal right femoral shaft are intact. Soft tissues: No suspicious soft tissue calcifications or masses. IMPRESSION: No gross new right femoral fracture or dislocation. Stable bent appearance of proximal intramedullary femoral itzel. Stable right femoral alignment. Dictated by: Memo Glez M.D. on 06/03/2018 at 11:05 Approved by: Memo Glez M.D. on 06/03/2018 at 11:07 Chest x-ray: Radiologist's impression: PROCEDURE: XR CHEST 1V INDICATIONS: COPD exacerbation Increased shortness of breath TECHNIQUE: One view of the chest was acquired. COMPARISON: [facility], , XR CHEST 1V, 03/06/2018, 16:53. FINDINGS: Surgical changes and devices: Left chest wall cardiac device and prosthetic aortic valve position is unchanged. Lungs and pleura: No pleural effusions or pneumothorax. Lungs are clear. Mediastinum: Mild pulmonary vascular congestion is seen. Cardiac silhouette is enlarged.. Bones and chest wall: No suspicious bony lesions. Overlying soft tissues appear unremarkable. IMPRESSION: Mild congestive changes. No definite focal infiltrate. Dictated by: Memo Glez M.D. on 06/03/2018 at 11:08 Approved by: Memo Glez M.D. on 06/03/2018 at 11:09 ECG Data Interpretation: EKG shows paced rhythm with ventricular rate of 91. Pr interval of 186 QRS duration of 133. QT of 362. No ST elevation or depression MDM Narrative Medical decision making narrative: CT of the head and face was obtained and was negative for any acute fractures. Chest x-ray shows mild congestive changes however is otherwise unremarkable. X-ray of the right femur shows proximal fracture of the right femur and bent intramedullary itzel that is stable with prior x-ray of that area. CBC shows mild anemia however is consistent with his prior lab values. Chem panel shows sodium at 1:31 a.m. and potassium at 5.2. ABG shows pH of 7.375 pCO2 of 57.6 and H CO3 of 33.7 indicating respiratory acidosis that is compensated. Troponin was indeterminate at 0.036. Signs and symptoms presents as COPD exacerbation with differential of CHF. Discussed case with hospitalist who accepted patient for inpatient treatment of exacerbation. He was given multiple nebulizer treatments in the emergency room and some BiPAP. Discussed case with hospitalist who accepted patient patient is admitted to inpatient service <Meir Sharpe DO - Last Filed: 06/04/18 19:28> Lab Data Lab Results 06/03/18 06/03/18 06/03/18 Range/Units 11:14 11:14 12:09 WBC 10.5 (4.5-11.0) X10^3/uL RBC 3.64 L (4.5-5.9) X10^6/uL Hgb 11.3 L (13.5-17.5) g/dL Hct 32.9 L (41-53) % MCV 90.1 (80-100) fL MCH 30.9 (26-34) PG MCHC 34.3 (30-36) % RDW 13.6 (11.6-14.8) % Plt Count 178 (150-400) X10^3/uL Neut % (Auto) 81.4 H (50-75) % Lymph % (Auto) 6.2 L (25-40) % [place] % (Auto) 9.3 (3-14) % Eos % (Auto) 2.2 (2-4) % Baso % (Auto) 0.9 (0-2) % Neut # (Auto) 8600 H (6667-9705) /uL ABG pH 7.38 (7.35-7.45) ABG pCO2 57.6 H (35-45) mmHg ABG pO2 120 H (80-105) mmHg ABG HCO3 34 H (23-27) mmol/L ABG Total CO2 35 H (23-27) mmol/L ABG O2 Saturation 98 (95-100) % ABG Base Excess 8.0 H (-2-3) mmol/L FiO2 0.44 Sodium 131 L (137-145) mmol/L Potassium 5.2 H (3.4-5.1) mmol/L Chloride 91 L (98-107) mmol/L Carbon Dioxide 34 H (22-32) mmol/L BUN 25 H (9-20) mg/dL Creatinine 1.20 (0.66-1.25) mg/dL Estimated GFR > 60.0 (>60) mL/min BUN/Creatinine Ratio 20.8 (6-22) Glucose 136 H (80-110) mg/dL Calcium 9.4 (8.4-10.2) mg/dL Total Bilirubin 0.4 (0.2-1.3) mg/dL AST 24 (17-59) IU/L ALT 28 (21-72) IU/L Alkaline Phosphatase 87 (38-126) U/L Total Creatine Kinase 98 (55-170) U/L Troponin I 0.036 H (0.01-0.034) ng/mL B-Natriuretic Peptide 250.0 H (<100) Total Protein 6.6 (6.3-8.2) g/dL Albumin 4.0 (3.5-5.0) g/dL Globulin 2.6 (1.7-4.1) g/dL Albumin/Globulin Ratio 1.5 (1.0-2.8) Nasal Screen MRSA (PCR) (Negative) 06/03/18 06/04/18 Range/Units 13:30 09:07 WBC (4.5-11.0) X10^3/uL RBC (4.5-5.9) X10^6/uL Hgb (13.5-17.5) g/dL Hct (41-53) % MCV (80-100) fL MCH (26-34) PG MCHC (30-36) % RDW (11.6-14.8) % Plt Count (150-400) X10^3/uL Neut % (Auto) (50-75) % Lymph % (Auto) (25-40) % [place] % (Auto) (3-14) % Eos % (Auto) (2-4) % Baso % (Auto) (0-2) % Neut # (Auto) (5372-2028) /uL ABG pH 7.46 H (7.35-7.45) ABG pCO2 47.1 H (35-45) mmHg ABG pO2 55 L (80-105) mmHg ABG HCO3 33 H (23-27) mmol/L ABG Total CO2 35 H (23-27) mmol/L ABG O2 Saturation 89 L (95-100) % ABG Base Excess 9.0 H (-2-3) mmol/L FiO2 21 Sodium (137-145) mmol/L Potassium (3.4-5.1) mmol/L Chloride (98-107) mmol/L Carbon Dioxide (22-32) mmol/L BUN (9-20) mg/dL Creatinine (0.66-1.25) mg/dL Estimated GFR (>60) mL/min BUN/Creatinine Ratio (6-22) Glucose (80-110) mg/dL Calcium (8.4-10.2) mg/dL Total Bilirubin (0.2-1.3) mg/dL AST (17-59) IU/L ALT (21-72) IU/L Alkaline Phosphatase (38-126) U/L Total Creatine Kinase (55-170) U/L Troponin I (0.01-0.034) ng/mL B-Natriuretic Peptide (<100) Total Protein (6.3-8.2) g/dL Albumin (3.5-5.0) g/dL Globulin (1.7-4.1) g/dL Albumin/Globulin Ratio (1.0-2.8) Nasal Screen MRSA (PCR) Negative for mrsa (Negative) Discharge Plan Departure Patient Disposition: Admitted As Inpatient Clinical Impression: COPD with acute exacerbation Discharge Date/Time: 06/03/18 13:20 Interventions: ED Discharge Assessment Last Done: 06/03/18 13:18 Admit Date/Time: 06/03/18 13:29 Admit Provider: Paige Jain <Meir Sharpe DO - Last Filed: 06/04/18 19:28> Cosign ED Attending Cossuryaature Attestation: I was available for consultation during this patient's emergency department encounter
--- NOTE | 2018-06-03 10:42 | DI.CT.S_ITS ---
PROCEDURE: CT FACIAL BONES WO CON INDICATIONS: Fall out of wheelchair hitting left side of face TECHNIQUE: Noncontrast 2.5 mm thick axial images acquired from the mandible through the frontal sinuses, with coronal and sagittal reformatting. For radiation dose reduction, the following was used: automated exposure control, adjustment of mA and/or kV according to patient size. COMPARISON: None. FINDINGS: Image quality: The head is rotated within the gantry.. Bones and teeth: Orbital humphrey are intact. Sinus humphrey show no fracture or deformity. Nasal bones and septum are intact. Visualized portions of the mandible demonstrate no fractures or subluxation. Zygomatic arches are intact. Pterygoid plates are intact. Visualized portions of the skull base and auditory canals are intact. The visualized cervical spine appears intact, degenerative disc disease at C4-5 Sinuses: Paranasal sinuses are aerated, without fluid levels, mucosal thickening, or mucoceles. Mastoid air cells are aerated. Soft tissues: No edema, masses, or fluid collections. No enlarged lymph nodes. No soft tissue lacerations or debris. Vascular: Visualized vascular structures appear normal in the absence of contrast. Bony vascular foramina and canals are intact. IMPRESSION: 1. No facial bone fractures. 2. No sinus opacification. 3. No apparent soft tissue hematoma Dictated by: Leo Vines M.D. on 06/03/2018 at 11:22 Approved by: Leo Vines M.D. on 06/03/2018 at 11:26
--- NOTE | 2018-06-03 10:42 | DI.CT.S_ITS ---
PROCEDURE: CT HEAD/BRAIN WO CON INDICATIONS: Fall out of wheelchair hitting left side of face TECHNIQUE: Noncontrast 4.5 mm thick angled axial sections acquired from the foramen magnum to the vertex, with coronal and sagittal reformats. For radiation dose reduction, the following was used: automated exposure control, adjustment of mA and/or kV according to patient size. COMPARISON: [facility], CT, HEAD WITHOUT CONTRAST, 03/08/2014, 19:01. FINDINGS: Image quality: Excellent. CSF spaces: Basal cisterns are patent. No extra-axial fluid collections. The ventricles are symmetric in size and shape. Brain: No intracranial bleeds or masses. There is cerebral volume loss for age, with resultant ventricular and sulcal prominence. There are periventricular and deep white matter chronic small vessel ischemic changes. There is intracranial internal carotid artery atherosclerosis. Skull and face: Calvarium and visualized facial bones appear intact, without suspicious lesions. Sinuses: Visualized sinuses and mastoids are clear. IMPRESSION: 1. No acute intracranial abnormality. 2. No visible fractures or sinus opacifications. 3. Age related atrophy, chronic deep white matter ischemic changes and vascular calcifications. Dictated by: Leo Vines M.D. on 06/03/2018 at 11:19 Approved by: Leo Vines M.D. on 06/03/2018 at 11:22
[2018-06-03 11:25] LABS: Add Manual Diff / Slide Review NO; Basophils Percent Auto 0.9 % (0-2); Eosinophils Percent Auto 2.2 % (2-4); Hematocrit 32.9 % (41-53); Hemoglobin 11.3 g/dL (13.5-17.5); Lymphocytes Percent Auto 6.2 % (25-40); Mean Corpuscular HGB Conc 34.3 % (30-36); Mean Corpuscular Hemoglobin 30.9 PG (26-34); Mean Corpuscular Volume 90.1 fL (80-100); Monocytes Percent Auto 9.3 % (3-14); Neutrophils Absolute Auto 8600 /uL (3000-5900); Neutrophils Percent Auto 81.4 % (50-75); Platelet Count 178 X10^3/uL (150-400); Red Blood Cell Count 3.64 X10^6/uL (4.5-5.9); Red Cell Distribution Width 13.6 % (11.6-14.8); White Blood Cell Count 10.5 X10^3/uL (4.5-11.0)
[2018-06-03 11:37] LABS: Alanine Aminotransferase 28 IU/L (21-72); Albumin Globulin Ratio 1.5 (1.0-2.8); Alkaline Phosphatase 87 U/L (38-126); Aspartate Aminotransferase 24 IU/L (17-59); BUN Creatinine Ratio 20.8 (6-22); Bilirubin Total 0.4 mg/dL (0.2-1.3); Blood Urea Nitrogen 25 mg/dL (9-20); Calcium 9.4 mg/dL (8.4-10.2); Carbon Dioxide 34 mmol/L (22-32); Chloride 91 mmol/L (98-107); Creatine Kinase 98 U/L (55-170); Estimated Glomerular Filt Rate > 60.0 mL/min (>60); Globulin 2.6 g/dL (1.7-4.1); Glucose 136 mg/dL (80-110); HEMOLYSIS < 15 (0-50); Potassium 5.2 mmol/L (3.4-5.1); Sodium 131 mmol/L (137-145); Total Protein 6.6 g/dL (6.3-8.2)
[2018-06-03 11:49] LABS: Troponin I 0.036 ng/mL (0.01-0.034)
[2018-06-03] MEDS: methylPREDNISolone 125 MG/2 ML VIAL IV (11:58)
[2018-06-03] MEDS: LORazepam 2 MG/ML SYRINGE 1 MG IV (12:54)
--- NOTE | 2018-06-03 13:09 | PC.NURSE ---
increasingly tired/ bipap placed. very anxious. states takes valium normally. pelroy aware. rx given. pt seems better. plan icu
[2018-06-03 13:20] LABS: HCO3 ABG 34 mmol/L (23-27); Oxygen Saturation ABG 98 % (95-100); PCO2 ABG 57.6 mmHg (35-45); PO2 ABG 120 mmHg (80-105); TCO2 ABG 35 mmol/L (23-27); pH ABG 7.38 (7.35-7.45)
[2018-06-03 13:21] LABS: Fractionated Inspired Oxygen 0.44
[2018-06-03] MEDS: OXYCODONE IR 5 MG TABLET PO ×2 (14:40→22:01)
[2018-06-03] MEDS: diazePAM 5 MG TABLET PO (14:41)
[2018-06-03] MEDS: levoFLOXacin 750 MG/150 ML PIGGYBACK 100 MG IV (14:41)
--- NOTE | 2018-06-03 15:27 | PC.NURSE ---
pt admitted from ed to room 102- breathing difficulties noted - requiring bipap at 25% - recent fall this am from w/c due to his failed right hip itzel in which he is scheduled for surgery at [facility] on this - daughter gave most information. pt is full code and dislikes bipap- medicated x 1 for pain to right hip and with po valium for his anxiety-
--- NOTE | 2018-06-03 16:01 | PM.HP.1 ---
History of Present Illness Date Patient Seen: 06/03/18 Time Patient Seen: 14:01 Chief complaint: FELL HIT HEAD, PIN FELL OUT OF RT LEG, HAD SURGERY Narrative: A 67-YEAR-OLD GENTLEMAN WITH A HISTORY OF RECENT FALL AND FRACTURE OF THE PREVIOUSLY MADE THE RIGHT FEMUR WAS WAITING FOR HAVING THE SURGERY DONE AND THEN [facility] THIS SATURDAY BUT IN THE LAST FEW DAYS HE HAS BEEN HAVING A PRODUCTIVE COUGH AND GOT WORSE THE DAY TODAY HE ALSO HAD SOME WHEEZES AND SLIGHTLY PRESENT TO THE HE HAS HAD PREVIOUS ADMISSIONS TO THE HOSPITAL FOR COPD IN ACUTE EXACERBATION THE LAST TIME HE WAS INTUBATED FOR THE SAME WAS IN SEPTEMBER OF LAST YEAR AND SINCE THEN HE SAYS HE HAS STOPPED SMOKING TOBACCO HE DENIES BRINGING UP ANY PURULENT SPUTUM OR BLOOD AND IS CURRENTLY ON BIPAP WITH FACE MASK AND IS DAUGHTER GIVES MUCH OF THE HISTORY HE DENIES ANY CHEST PAIN FEVER CHILLS OR RIGORS Patient History Medical History COPD (chronic obstructive pulmonary disease) (Acute) CHF (congestive heart failure) (Acute) Cardiac defibrillator in place (Acute) Surgical History S/P TAVR (transcatheter aortic valve replacement) (Acute) Family & Social History Family History: Reviewed 06/03/18 by Paige Jain MD Social History: household members family Prior Living Arrangements House Safety & Behavioral: Feels Safe in Current Yes Environment Been Physically Hurt or No Threatened By a Person Suicidal Ideation Description None Suicide Plan Description No Plan Tobacco & Substance use: Smoking Status Former smoker alcohol intake frequency a few times a month Substance Use Type does not use Meds Home Medications Medication Instructions Recorded Confirmed Type spironolactone 25 mg PO QDAY #0 03/04/11 06/03/18 History terazosin 6 mg PO BEDTIME #0 03/04/11 06/03/18 History aspirin 81 mg PO DAILY #0 07/26/11 06/03/18 History potassium chloride 20 meq PO DAILY #0 07/26/11 06/03/18 History diazepam 5 mg PO Q8H PRN #0 09/26/17 06/03/18 History albuterol sulfate 3 ml INHALATION QID PRN 06/03/18 06/03/18 History albuterol sulfate [Ventolin HFA] 2 puff INHALATION Q4H PRN 06/03/18 06/03/18 History bisoprolol fumarate 5 mg PO DAILY 06/03/18 06/03/18 History budesonide 0.25 mg INHALATION Q12H 06/03/18 06/03/18 History budesonide-formoterol [Symbicort] 2 puff INHALATION BID 06/03/18 06/03/18 History calcium carbonate 1 tab PO DAILY 06/03/18 06/03/18 History cholecalciferol (vitamin D3) 2,000 unit PO DAILY 06/03/18 06/03/18 History [Vitamin D3] citalopram 40 mg PO DAILY 06/03/18 06/03/18 History codeine-guaifenesin [Cheratussin 5 ml PO Q4H 06/03/18 06/03/18 History AC] colchicine [Colcrys] See Label Instructions .ROUTE 06/03/18 06/03/18 History .COMPLEX PRN digoxin 1 tab PO DAILY 06/03/18 06/03/18 History furosemide 80 mg PO DAILY 06/03/18 06/03/18 History indomethacin 50 mg PO TID 06/03/18 06/03/18 History ipratropium bromide 2.5 ml INHALATION QID PRN 06/03/18 06/03/18 History ipratropium-albuterol 3 ml INHALATION Q6H 06/03/18 06/03/18 History lisinopril 1 tab PO DAILY 06/03/18 06/03/18 History loratadine 10 mg PO DAILY 06/03/18 06/03/18 History naproxen 500 mg PO BID PRN 06/03/18 06/03/18 History nystatin 5 ml PO TID 06/03/18 06/03/18 History oxycodone 5 mg PO Q6H PRN 06/03/18 06/03/18 History pravastatin 40 mg PO DAILY 06/03/18 06/03/18 History Allergies Allergy/AdvReac Type Severity Reaction Status Date / Time No Known Drug Allergies Allergy Verified 06/03/18 14:31 Review of Systems Review of Systems All systems reviewed & are unremarkable except as noted in HPI and below Exam Vital Signs (past 8 hours): - 06/03/18 10:15 06/03/18 10:18 06/03/18 10:31 Temperature Pulse Rate 94 H 91 H 98 H Respiratory Rate 24 15 22 Blood Pressure 131/65 H Blood Pressure [Left Arm] Pulse Oximetry 95 95 94 06/03/18 11:47 06/03/18 12:17 06/03/18 12:30 Temperature 98.4 F Pulse Rate 90 91 H 104 H Respiratory Rate 18 21 21 Blood Pressure Blood Pressure [Left Arm] 131/58 H 130/50 H Pulse Oximetry 99 96 92 06/03/18 13:01 06/03/18 13:12 06/03/18 13:18 Temperature Pulse Rate 98 H 99 H Respiratory Rate 24 24 Blood Pressure 132/67 H 132/67 H Blood Pressure [Left Arm] Pulse Oximetry 95 95 06/03/18 13:37 06/03/18 14:14 06/03/18 14:22 Temperature 99 F 99.2 F Pulse Rate 100 H 100 H Respiratory Rate 16 28 H Blood Pressure 121/68 H 121/68 H 121/68 H Blood Pressure [Left Arm] Pulse Oximetry 94 94 Fraction of Inspired Oxygen 0.25 Oxygen Delivery Method BiPAP Oxygen Flow Rate 1 Const General: cooperative, comfortable, well developed and other (HAS FACE MASK ON Bi PAP support) HENMT Head: other (bipap mask on) Eyes Pupils: PERRL Neck Neck: normal visual inspection and full ROM Thyroid: thyroid normal Chest Chest: normal inspection of the chest Resp Effort & Inspection: normal respiratory effort, tachypneic and prolonged expiratory phase Auscultation: wheezes (scattered yvette) Cardio Rate: tachycardic Rhythm: regular rhythm Heart Sounds: S1 normal and S2 normal GI Inspection: normal to inspection Palpation: soft Auscultation: normal bowel sounds Back/Spine/Pelvis Thoracic/Lumbar Spine: thoracic and lumbar spine normal to inspection Skin Trauma: no lacerations or abrasions Neuro General: alert, awake and oriented x3 Cranial Nerves: CN's II-XI intact bilaterally Cognition: normal cognition Speech: speech normal Gait: normal gait Motor: muscle tone normal throughout Sensory Exam: no sensory deficits noted Extrem Left lower extremity: ankle (edema 1-2+) Psych Affect: normal affect Thought Process: normal Thought Content: normal Judgment: judgment good Objective Labs Result Diagrams: 06/03/18 11:14 06/03/18 11:14 Labs: Laboratory Results - last 24 hr 06/03/18 06/03/18 06/03/18 11:14 11:14 12:09 WBC 10.5 RBC 3.64 L Hgb 11.3 L Hct 32.9 L MCV 90.1 MCH 30.9 MCHC 34.3 RDW 13.6 Plt Count 178 Neut % (Auto) 81.4 H Lymph % (Auto) 6.2 L [place] % (Auto) 9.3 Eos % (Auto) 2.2 Baso % (Auto) 0.9 Neut # (Auto) 8600 H ABG pH 7.38 ABG pCO2 57.6 H ABG pO2 120 H ABG HCO3 34 H ABG Total CO2 35 H ABG O2 Saturation 98 ABG Base Excess 8.0 H FiO2 0.44 Sodium 131 L Potassium 5.2 H Chloride 91 L Carbon Dioxide 34 H BUN 25 H Creatinine 1.20 Estimated GFR > 60.0 BUN/Creatinine Ratio 20.8 Glucose 136 H Calcium 9.4 Total Bilirubin 0.4 AST 24 ALT 28 Alkaline Phosphatase 87 Total Creatine Kinase 98 Troponin I 0.036 H B-Natriuretic Peptide 250.0 H Total Protein 6.6 Albumin 4.0 Globulin 2.6 Albumin/Globulin Ratio 1.5 Assessment & Plan Plan: Assessment/Plan Narrative: Acute excarcerbation COPD treat with ATBX SOLUMEDROL AND NEBULIZED BRONCHODILATORS CHF CONTINUE HOME MEDICATIONS INCLUDING DIURETICS RT FEMUR FRACTURE OF [place] AWAITING SURGERY AT [facility] SCHEDULED TO BE FOR THIS SATURDAY HOPEFULLY HIS COPD WILL GET BETTER IN THE COMMODE DISCHARGE BEFORE THAT ANXIETY Disorder Time Spent With Patient Time with patient: Greater than 35 minutes
[2018-06-03] MEDS: ENOXAPARIN 40 MG/0.4 ML SYRINGE SUBCUT (17:50)
[2018-06-03] MEDS: PANTOPRAZOLE 40 MG VIAL IV (17:51)
[2018-06-03] MEDS: BUDESONIDE 0.5 MG/2 ML NEB 0.25 MG INH (20:01)
[2018-06-03] MEDS: NYSTATIN 100,000 UNIT/ML ORAL SUSP UDC 500000 UNIT PO (21:44)
[2018-06-03] MEDS: TERAZOSIN 1 MG CAPSULE PO (21:45)
[2018-06-03] MEDS: TERAZOSIN 5 MG CAPSULE PO (21:46)
[2018-06-03] MEDS: PRAVASTATIN 20 MG TABLET 40 MG PO (21:46)
[2018-06-03] MEDS: LORATADINE 10 MG TABLET PO (21:47)
[2018-06-04] VITALS (21 sets, daily range): BP systolic 110–138; BP diastolic 52–83; PULSE 74–93; RESP 12–27; TEMP 33.2–36.8; O2SAT 92–100
[2018-06-04] MEDS: diazePAM 5 MG TABLET PO ×3 (00:05→22:35)
[2018-06-04] MEDS: ALBUTEROL/IPRATROPIUM 3 ML AMPUL INH ×4 (00:22→19:52)
[2018-06-04] MEDS: SODIUM CHLORIDE 0.9% FLUSH 10 ML IV ×3 (05:13→20:19)
--- NOTE | 2018-06-04 06:14 | PC.NURSE ---
Patient has been weak and oriented, very drowsy in am, received 5mg PO diazepam at [place] for sleep. Pain to Rt hip during movement, did not require analgesics. Used Bi-pap intermittently with 1L NC, SpO2 > 94%, RR 20s, coarse breath sounds with audible wheezes, SR, BBB, PVCs, normotensive, afebrile.
[2018-06-04] MEDS: FUROSEMIDE 40 MG TABLET 80 MG PO (08:30)
[2018-06-04] MEDS: CITALOPRAM 20 MG TABLET 40 MG PO (08:30)
[2018-06-04] MEDS: CHOLECALCIFEROL (VITAMIN D3) 1,000 UNIT TABLET 2000 UNIT PO (08:30)
[2018-06-04] MEDS: LISINOPRIL 5 MG TABLET 2.5 MG PO (08:31)
[2018-06-04] MEDS: BISOPROLOL 5 MG TABLET PO (08:31)
[2018-06-04] MEDS: SPIRONOLACTONE 25 MG TABLET PO (08:31)
[2018-06-04] MEDS: PANTOPRAZOLE 40 MG VIAL IV (08:32)
[2018-06-04] MEDS: ASPIRIN EC 81 MG TABLET PO (08:32)
[2018-06-04] MEDS: DIGOXIN 0.125 MG TABLET PO (08:32)
--- NOTE | 2018-06-04 08:38 | CM.DANOTE ---
DCP: Case received, EMR reviewed and met with patient. Placed name on white board in room, patient sleeping, but contacted daughter, Jo, for more information regarding patient. DCP template completed with information currently available. Patient is a 67 year old male patient who admitted yesterday afternoon to the care of the hospitalist team. PCP: Dr. Aden. Payer: confirmed: Medicare. Patient came in due to a ground level fall out of wheel-chair at home. Has COPD/CHF, and also has history of broken femur, which he was to have repaired at [place], but due to condition, surgery has been postponed. Patient lives alone in [place], son lives behind him in mobile home, and daughter, Allie, lives out of town, but is involved. Has had her friend, who is an RN for [employer], help patient with shower. Daughter is concerned about care needs for her dad, and stated that her son is not that helpful. P: DCP will monitor situation, did discuss skilled for rehab versus home health. Will meet with daughter and provide Medicare choice list. Corinne Merchant RN/Manager Pmo
[2018-06-04] MEDS: NYSTATIN 100,000 UNIT/ML ORAL SUSP UDC 500000 UNIT PO ×3 (08:40→20:22)
[2018-06-04] MEDS: OXYCODONE IR 5 MG TABLET PO ×4 (09:31→22:35)
[2018-06-04] MEDS: ENOXAPARIN 40 MG/0.4 ML SYRINGE SUBCUT (09:31)
--- NOTE | 2018-06-04 10:08 | PC.NURSE ---
pt very drowsy this am,abg complete and ptplaced on room air rather than 1 liter of o2 due to his risk for hypercapnea- spo2 maintained 92-98%- took meds whole in applesauce this am- requiring new iv start and placement of christine cath- he tolerated these procedures fine
[2018-06-04 10:42] LABS: Fractionated Inspired Oxygen 21; HCO3 ABG 33 mmol/L (23-27); Oxygen Saturation ABG 89 % (95-100); PCO2 ABG 47.1 mmHg (35-45); PO2 ABG 55 mmHg (80-105); TCO2 ABG 35 mmol/L (23-27); pH ABG 7.46 (7.35-7.45)
[2018-06-04] MEDS: POTASSIUM CHLORIDE 20 MEQ TAB PO (12:02)
[2018-06-04] MEDS: levoFLOXacin 750 MG/150 ML PIGGYBACK 100 MG IV (13:38)
--- NOTE | 2018-06-04 14:18 | CM.DPC ---
DCP Cont: Had small conference with daughter, Jo. Is concerned about her father going back home. She is planning on moving here permanently, as she is from [place], but has been staying with her dad due to his condition. Gave her Senior resource booklet, as well as Medicare Choice list. Is requesting that her father go to [facility], for she said that patient has been there before. Patient is inpatient status as of 06/03, has Medicare, let her know he would need to be here until the . Left message with Shelly at [facility], regarding availability of bed. Patient's surgery at [facility] will be postponed until next , the . P: DCP to continue to plan and assess.Follow up with [facility] on availability. Corinne Merchant RN/Contract Loader
--- NOTE | 2018-06-04 15:45 | PT.IPTN ---
Current Diagnoses Chronic obstructive pulmonary disease with (acute) exacerbation (06/03/18) Physical Therapy Treatment Note M3 PT-IP Subjective Start: 06/04/18 17:12 Freq: NEEDED Status: Active Protocol: Document 06/04/18 15:45 MDD (Rec: 06/04/18 17:16 MDD [id number]) Subjective Physical Therapy Visit Type Type Patient Refusal Visit Start Time 15:45 Visit Stop Time 15:55 Total Visit Minutes 10 Notes PT attempted to evaluate pt this afternoon with OT. Pt refused attempts to get out of bed due to pain (5/10). WB status remains unclear at this time. Will hold until further clarification provided . Will attempt again tomorrow morning.
--- NOTE | 2018-06-04 15:57 | PM.PN.1 ---
Subjective Date Patient Seen: 06/04/18 Time Patient Seen: 10:59 Interval history: Gentleman admitted from home with a history of worsening shortness of breath he has an underlying COPD med long-term smoker we stopped about 29 September of last year when he was admitted to the hospital needed intubation He also has right-sided fracture of the femur on the itzel in the right is bent now [facility] evident revision surgery in the [facility] in [place] but they are kept postponing it because of his respiratory condition Finally they have agreed to the surgery this coming but he started getting short of breath from the last couple of days and was admitted to the hospital yesterday he was on BiPAP in the ER value was tiring out but today's managed without the BiPAP in fact most of yesterday afternoon he came off the BiPAP and did not go back on it Complains of pain in the right thigh region and not sure of the status of the right in terms of whether he can bear weight or not Exam Vital Signs (past 8 hours): - 06/04/18 08:07 06/04/18 08:31 06/04/18 08:32 Temperature Pulse Rate 77 81 Respiratory Rate Blood Pressure 136/68 H 136/68 H Pulse Oximetry 98 06/04/18 08:39 06/04/18 08:42 06/04/18 12:40 Temperature 98 F Pulse Rate 74 75 Respiratory Rate 20 24 Blood Pressure 114/52 L Pulse Oximetry 95 95 92 06/04/18 12:41 06/04/18 13:26 06/04/18 15:33 Temperature 98.3 F Pulse Rate 85 83 Respiratory Rate 16 25 H Blood Pressure 115/55 L Pulse Oximetry 96 96 97 Fraction of Inspired Oxygen 25 SaO2/FiO2 Ratio 396 Oxygen Delivery Method Room Air Oxygen Flow Rate 0 Const General: cooperative, healthy appearing and comfortable Orientation: alert, awake and oriented x3 HENMT Head: normal to inspection Ears: hearing grossly normal bilaterally Nose: external nose normal Face and sinus: normal facial exam Eyes Eyelids: eyelids normal Conjunctivae: conjunctivae normal Sclera: sclerae normal Pupils: PERRL EOM: EOM intact bilaterally Neck Neck: normal visual inspection and JVD Resp Effort & Inspection: normal respiratory effort Auscultation: bronchovesicular breath sounds and wheezes (scattered Khai improved compared to yesterday) Cardio Rate: regular rate Rhythm: regular rhythm Heart Sounds: S1 normal and S2 normal GI Inspection: normal to inspection Palpation: soft Back/Spine/Pelvis Back: normal to inspection and No back tenderness Skin General: no rashes or lesions noted Neuro General: alert, awake and oriented x3 Cranial Nerves: CN's II-XI intact bilaterally Cognition: normal cognition Speech: speech normal Gait: normal gait Motor: muscle tone normal throughout Sensory Exam: no sensory deficits noted Extrem Left lower extremity: edema (1-2+ khai) Psych Appearance: grossly normal Speech and Movement: speech and movement normal Mood: congruent mood Affect: normal affect Attitude: cooperative Thought Process: normal Thought Content: normal Judgment: judgment good Objective Labs Result Diagrams: 06/03/18 11:14 06/03/18 11:14 Labs: Laboratory Results - last 24 hr 06/03/18 06/04/18 13:30 09:07 ABG pH 7.46 H ABG pCO2 47.1 H ABG pO2 55 L ABG HCO3 33 H ABG Total CO2 35 H ABG O2 Saturation 89 L ABG Base Excess 9.0 H FiO2 21 Nasal Screen MRSA (PCR) Negative for mrsa Assessment & Plan Plan: Assessment/Plan Narrative: 1. COPD with acute exacerbation improving on Solu-Medrol and bronchodilators and Levaquin n History of right hip fracture femur with the recurrent injury about a month ago requiring revision of his the itzel in the right femur Time Spent With Patient Time with patient: less than 15 minutes
--- NOTE | 2018-06-04 16:12 | PC.NURSE ---
Addendum entered by Anabell Carter R.N. 06/04/18 17:21: 1720 - Pt c/o pain to left shoulder blade and left bicep area. Denies chest pain, denies pain with deep inhalation. Describes a muscle type pain with movement. Declines pain RX. BP 117/57, HR 84. Positioned for comfort. Monitor. Original Note: Pt c/o pain not well controlled. MD notified, Order obtained. Discussed pt mobility status. PT/OT here to evaluate. Pt declines to participate r/t pain. MD suggests reviewing prior admission notes for mobility guidelines. Unable to locate. PT/OT suggest bed rest or jennie until they are able to complete eval.
--- NOTE | 2018-06-04 16:33 | OT.IP.TRT ---
Current Diagnoses Chronic obstructive pulmonary disease with (acute) exacerbation (06/03/18) Occupational Therapy Treatment Note M3 OT- IP Subjective and Pain Start: 06/04/18 16:20 Freq: Status: Active Protocol: Document 06/04/18 16:21 [facility] (Rec: 06/04/18 16:33 [facility] [id number]) OT- Subjective Occupational Therapy Visit Type Type Patient Refusal Notes Pt states in too much pain therefore not wanting to participate in OT/PT eval at this time. At this time waiting for clarification for WB status for RLE. Able to talk to pt regarding home set- up and equipment at home. Therefore to try OT eval tomorrow.
[2018-06-04] MEDS: PRAVASTATIN 20 MG TABLET 40 MG PO (20:23)
[2018-06-04] MEDS: TERAZOSIN 1 MG CAPSULE PO (20:24)
[2018-06-04] MEDS: TERAZOSIN 5 MG CAPSULE PO (20:24)
[2018-06-05] VITALS (12 sets, daily range): BP systolic 119–137; BP diastolic 44–59; PULSE 72–107; RESP 14–22; TEMP 35.8–36.9; O2SAT 94–98
[2018-06-05] MEDS: ALBUTEROL/IPRATROPIUM 3 ML AMPUL INH ×4 (02:09→19:03)
[2018-06-05] MEDS: OXYCODONE IR 5 MG TABLET PO ×3 (04:16→16:54)
[2018-06-05] MEDS: SODIUM CHLORIDE 0.9% FLUSH 10 ML IV ×3 (05:53→20:28)
--- NOTE | 2018-06-05 08:46 | PT.IIE ---
Current Diagnoses Chronic obstructive pulmonary disease with (acute) exacerbation (06/03/18) Surgical History (Last Reviewed 06/03/18 @ 16:04 by Paige aJin MD) S/P TAVR (transcatheter aortic valve replacement) (Acute) Medical History (Last Updated 06/04/18 @ 17:08 by Anabell Carter RN) COPD (chronic obstructive pulmonary disease) (Acute) CHF (congestive heart failure) (Acute) Prediabetes (Acute) Cardiac defibrillator in place (Acute) Physical Therapy Inpatient Evaluation/Re-Eval M1 PT/OT-IP Prior Functional Status Start: 06/04/18 16:20 Freq: NEEDED Status: Active Protocol: Document 06/05/18 08:44 MDD (Rec: 06/05/18 11:38 MDD [id number]) Medical Review Prior Functional Status Medical History Reviewed Yes Communication normal Mobility and Gait Pt previously mobilizing in his home with W/C. Was doing short distance walking with FWW up and down steps to enter his home and into the bathroom. Activities of Daily Living and IADL's able to dress independently, reports he hadn't showered for a while. Social History Household Members family Living Arrangements House Number of Floors (Floors) Two Floors Number of Stairs To Enter/Railing? Multiple floors, but pt lives on 1st floor only. 2 short steps to enter (pt plans to get a ramp in place). Home Environment Standard Height Toilet Walk in Shower Home Equipment Front Wheel Walker Manual Wheelchair Shower Seat without Backrest Employment Status Retired Additional Social History Comment Pt lives in [facility]. His son lives behind him, but is unable to help. His daughter and her plan on moving in with him to assist. M1 PT/OT-IP Prior Functional Status Start: 06/04/18 17:12 Freq: NEEDED Status: Active Protocol: Document 06/05/18 08:44 MDD (Rec: 06/05/18 11:38 MDD [id number]) M2 PT-IP Current Condition Start: 06/04/18 17:12 Freq: NEEDED Status: Active Protocol: Document 06/05/18 08:44 MDD (Rec: 06/05/18 11:38 MDD [id number]) Physical Therapy Current Condition Current Condition Evaluation Date 06/05/18 Treatment Diagnosis s/p GLF, R hip fracture w/ femoral itzel failure Onset Date 06/03/18 Precautions Other Precautions christine catheter. NWB R LE ( still awaiting clarification from surgeon/ortho) Weight Bearing Status Weight Bearing Status Non-Weight Bearing Allowed Weight Bearing Amount (enter % Do to recent fall , and prior or #) (%) injury x-ray showed no new right femoral fx or dislocation . Stable bent appearance of proximal intramedullary femoral itzel. Pt states that he is NWB to RLE, to confirm with physician. M3 PT-IP Subjective Start: 06/04/18 17:12 Freq: NEEDED Status: Active Protocol: Document 06/05/18 08:44 MDD (Rec: 06/05/18 11:38 [facility] [id number]) Subjective Physical Therapy Visit Type Type Initial Evaluation Visit Start Time 08:31 Visit Stop Time 08:46 Total Visit Minutes 15 Number of PRODUCE WEIGHER Visits 0 Physical Therapy Visit Comments Patient Comments Pt would like to get up to the chair this am. Despite pain complaints, reports that he would like pain meds after activity. Therapy Pain Assessment Pain When Pain Assessed At Rest Pain Present Pain Present Pain Reported Location Right Hip Intensity 5 Scale Used Numeric (1 - 10) Description Aching M4 PT-IP Mobility and Gait Start: 06/04/18 17:12 Freq: NEEDED Status: Active Protocol: Document 06/05/18 08:44 MDD (Rec: 06/05/18 11:38 [facility] [id number]) PT-Bed Mobility Assessment Supine to Sit Supine to Sit Contact Guard Assistance Head of Bed Elevated Bedrails Scooting Scooting to Edge of Bed Standby Assistance PT-Transfer Assessment Sit to and From Stand Sit to and from Stand Minimal Assistance Equipment Transfer Assistive Device Gait Belt Front Wheeled Walker Transfers Transfer Destination Chair Transfer Technique Stand Step Pivot Transfer Ability Level of Assist Minimal Assistance Comments Mobility Comments Pt able to transfer, but unable to perform NWB R LE. Performed with TTWB, needed assistance steadying walker for safety with transfer. Pt prefers to do things his way and not very receptive to cueing this day. PT-Balance Assessment Sitting Balance and Reactions Static Sitting Balance Ability Normal Dynamic Sitting Balance Ability Normal Standing Balance and Reactions Static Standing Balance Ability Good Dynamic Standing Balance Ability Fair Device Used FWW M5 PT-IP Objective Assessments Start: 06/04/18 17:12 Freq: NEEDED Status: Active Protocol: Document 06/05/18 08:44 MDD (Rec: 06/05/18 11:38 [facility] [id number]) Orientation Orientation/Cognition Level of Alertness Alert Orientation Name Year Place Situation Language Function Ability No Deficits Noted Hard of Hearing Safety Awareness Decreased Safety Awareness Memory Description Short Term Impaired Comments Pt seems a bit impulsive with movements, not receptive to cueing from therapy this day. Gross Range of Motion Lower Extremity ROM Assessment Within Functional Limits Strength Lower Extremity Strength Assessment Left Impaired Comments Strength Comments Pt able to lift R LE off bed and independently move it for bed mobility, unable to tolerate MMT due to pain. Sensation Assessment Sensation Gross Sensation Right LE Impaired Light Touch Impaired Comments Sensation Comments Pt reports tingling feeling with impaired light touch to plantar surface R foot and heel. M6 PT-IP Treatment Start: 06/04/18 17:12 Freq: NEEDED Status: Active Protocol: Document 06/05/18 08:44 MDD (Rec: 06/05/18 11:38 [facility] [id number]) Physical Therapy Treatment Education Education Provided Precautions Weight Bearing Status Safety M7 PT-IP Assessment and Plan Start: 06/04/18 17:12 Freq: NEEDED Status: Active Protocol: Document 06/05/18 08:44 MDD (Rec: 06/05/18 11:38 [facility] [id number]) PT Summary Assessment and Plan Potential Rehabilitation Potential Good Status of Condition at Evaluation Evolving Summary Impairments Pain ROM Strength Balance Bed Mobility Transfers Progress Towards Goals Progressing Toward Goals Assessment Summary Pt demonstrates decent bed mobility this day with HOB elevated, but may require mod - max A from low surface, especially if pain is high. He had difficulty transferring maintaining NWB status with R LE. He would benefit from continued inpatient therapy to strengthen B lower extremeties and improve transfers with precautions. As pt has stairs to enter his home, he will likely benefit from SNF prior to surgery and eventual d/c home. Goals Bed Mobility Goal Independent Transfer Goal Independent Days to Meet Goals 3 Frequency of Treatment Frequency Of Treatment Twice a Day Treatment Plan Physical Therapy Treatment Plan Bed Mobility Training Transfer Training Therapeutic Exercise Discharge Planning Recommendations To Nursing Amount of Assist Needed 1 Person Assist Discharge Recommendations PT Discharge Recommendations SNF Rehab
--- NOTE | 2018-06-05 08:49 | P.PN_ITS ---
Subjective Date Patient Seen: 06/05/18 Time Patient Seen: 14:27 Interval history: ADMITTED FROM HOME WITH WORSENING SHORTNESS OF BREATH AND COUGH HE STOPPED SMOKING ABOUT 6 MONTHS AGO HE WAS DUE TO HAVE HIS RIGHT TO THRIVE FIXED HE HAS BROUGHT THAT IS BETTER AFTER FALL ABOUT A COUPLE MONTHS AGO HE IS DOING BETTER TODAY DOES NOT COMPLAIN THIS MUCH OF THE SHORTNESS OF BREATH OR COUGH BLOOD SUGARS ARE HIGH BECAUSE OF THE STEROIDS WELL HE IS EATING FRUITS HE REFUSES TO HAVE INSULIN COVERAGE OR ANY INJECTIONS FOR HIS DIABETES Exam Vital Signs (past 8 hours): - 06/05/18 02:11 06/05/18 04:13 06/05/18 07:27 Temperature 96.5 F L 97.5 F L Pulse Rate 74 98 H Respiratory Rate 17 18 Blood Pressure 136/44 H 137/57 H Pulse Oximetry 96 94 95 06/05/18 08:00 06/05/18 08:15 Temperature Pulse Rate 76 Respiratory Rate 18 Blood Pressure Pulse Oximetry 98 98 Fraction of Inspired Oxygen 25 SaO2/FiO2 Ratio 396 Oxygen Delivery Method Room Air Oxygen Flow Rate 0 Const General: cooperative, healthy appearing, comfortable and well developed [facility] Head: normal to inspection Ears: hearing grossly normal bilaterally Nose: external nose normal Face and sinus: normal facial exam Eyes General: appearance normal, both eyes and all related structures Sclera: sclerae normal Pupils: PERRL EOM: EOM intact bilaterally Neck Neck: normal visual inspection Thyroid: thyroid normal Resp Effort & Inspection: normal respiratory effort and able to speak in complete sentences Auscultation: bronchovesicular breath sounds and rhonchi (SCATTERED AKOSUA) Cardio Rhythm: regular rhythm Heart Sounds: S1 normal and S2 normal GI Inspection: normal to inspection Palpation: soft Back/Spine/Pelvis Back: normal to inspection and No back tenderness Skin General: no rashes or lesions noted Neuro General: alert, awake and oriented x3 Cranial Nerves: CN's II-XI intact bilaterally Cognition: normal cognition Speech: speech normal Motor: muscle tone normal throughout Sensory Exam: no sensory deficits noted Psych Affect: normal affect Attitude: cooperative Thought Process: normal Thought Content: normal Judgment: judgment good Objective Labs Result Diagrams: 06/03/18 11:14 06/05/18 17:03 Labs: Laboratory Results - last 24 hr 06/04/18 09:07 ABG pH 7.46 H ABG pCO2 47.1 H ABG pO2 55 L ABG HCO3 33 H ABG Total CO2 35 H ABG O2 Saturation 89 L ABG Base Excess 9.0 H FiO2 21 Assessment & Plan Plan: Assessment/Plan Narrative: 1.Acute Hypoxic Hypercapneic Respiratory Failure COPD with possible infective excacerbation ON STEROPIDS bR dILATORS AND atbx 2.Chronic Systolic HF continue Home MEDS 3.Bioprosthetic Aortic Valve nil acute issue 4.Diabetes Mellitus worsening glucose control d/t steroids will add insulin basal bolus Time spent 25-35 min
[2018-06-05] MEDS: CHOLECALCIFEROL (VITAMIN D3) 1,000 UNIT TABLET 2000 UNIT PO (08:59)
[2018-06-05] MEDS: ASPIRIN EC 81 MG TABLET PO (08:59)
[2018-06-05] MEDS: BISOPROLOL 5 MG TABLET PO (08:59)
[2018-06-05] MEDS: ENOXAPARIN 40 MG/0.4 ML SYRINGE SUBCUT (09:00)
[2018-06-05] MEDS: DIGOXIN 0.125 MG TABLET PO (09:00)
[2018-06-05] MEDS: LISINOPRIL 5 MG TABLET 2.5 MG PO (09:00)
[2018-06-05] MEDS: CITALOPRAM 20 MG TABLET 40 MG PO (09:00)
[2018-06-05] MEDS: FUROSEMIDE 40 MG TABLET 80 MG PO (09:00)
[2018-06-05] MEDS: NYSTATIN 100,000 UNIT/ML ORAL SUSP UDC 500000 UNIT PO ×2 (09:01→20:29)
[2018-06-05] MEDS: LORATADINE 10 MG TABLET PO (09:01)
[2018-06-05] MEDS: PANTOPRAZOLE 40 MG VIAL IV (09:02)
[2018-06-05] MEDS: SPIRONOLACTONE 25 MG TABLET PO (09:02)
[2018-06-05] MEDS: POTASSIUM CHLORIDE 20 MEQ TAB PO (09:02)
--- NOTE | 2018-06-05 09:36 | OT.IP.EVAL ---
Current Diagnoses Chronic obstructive pulmonary disease with (acute) exacerbation (06/03/18) Past Medical History (Last Updated 06/04/18 @ 17:08 by Anabell Carter RN) COPD (chronic obstructive pulmonary disease) (Acute) CHF (congestive heart failure) (Acute) Prediabetes (Acute) Cardiac defibrillator in place (Acute) Surgical History (Last Reviewed 06/03/18 @ 16:04 by Paige Jain MD) S/P TAVR (transcatheter aortic valve replacement) (Acute) Occupational Therapy Inpatient Evaluation/Re-Eval M2 OT-IP Current Condition Start: 06/04/18 16:20 Freq: Status: Active Protocol: Document 06/05/18 09:17 [facility] (Rec: 06/05/18 09:36 [facility] [id number]) Occupational Therapy Current Condition Current Condition Evaluation Date 06/05/18 Treatment Diagnosis Respiratory Failure Diagnosis Onset Date 06/03/18 Weight Bearing Status Weight Bearing Status Non-Weight Bearing Allowed Weight Bearing Amount (enter % Do to recent fall , and prior or #) (%) injury x-ray showed no new right femoral fx or dislocation . Stable bent appearance of proximal intramedullary femoral itzel. Pt states that he is NWB to RLE, to confirm with physician. M3 OT- IP Subjective and Pain Start: 06/04/18 16:20 Freq: Status: Active Protocol: Document 06/05/18 09:17 [facility] (Rec: 06/05/18 09:36 [facility] [id number]) OT- Subjective Occupational Therapy Visit Type Type Initial Evaluation Visit Start Time 08:31 Visit Stop Time 08:46 Total Visit Minutes 15 Occupational Therapy Visit Comments Patient Comments Pt agreeable to get up. OT Pain Assessment Pain When Pain Assessed During Mobility Pain Present Pain Present Pain Reported Location Right Hip Intensity 3 Scale Used Numeric (1 - 10) M4 OT- IP ADL's Start: 06/04/18 16:20 Freq: Status: Active Protocol: Document 06/05/18 09:17 [facility] (Rec: 06/05/18 09:36 [facility] [id number]) OT ADL-Dressing General Eval Lower Body Dressing Ability Total Assistance Areas Needing Assistance Socks OT ADL-Toileting General Evaluation Toileting Ability Total Assistance Areas Needing Assistance Empty Catheter or Colostomy M6 OT- IP Functional Cognition Start: 06/04/18 16:20 Freq: Status: Active Protocol: Document 06/05/18 09:17 [facility] (Rec: 06/05/18 09:36 [facility] [id number]) Cognitive Factors Limiting Selfcare Function Cognitive Ability Level of Alertness Alert Patient Orientation Name Place Situation Attention Span Ability Capable of Focused Attention Capable of Sustained Attention Ability to Follow Commands Able to Follow One Step Commands Memory Description Short Term Impaired Working Impaired Safety Awareness Decreased Ability to Apply Precautions Underestimates Need for Assistance Problem Solving Ability Unable to Identify Errors Needs Assist to Identify Solutions Cognitive Comments Cognitive Assessment Comments Pt a bit impulsive, needing concrete commands, tends to want to do things his own way and disregarding precautions and safety awareness. M7 OT- IP Mobility and Balance Start: 06/04/18 16:20 Freq: Status: Active Protocol: Document 06/05/18 09:17 [facility] (Rec: 06/05/18 09:36 [facility] [id number]) OT- Bed Mobility Assessment Rolling Type of Rolling Roll to Left Supine to Sit Supine to Sit Assist Minimal Assistance OT-Transfer Assessment Sit to and From Stand Sit to and from Stand Minimal Assistance Transfers Transfer Ability Minimal Assistance 2 Person Assistance Technique Transfer Destination Chair Devices Transfer Assistive Devices Gait Belt Front Wheeled Walker Comments Mobility Comments EDISON mainly fo safety due to pt impulsive and needing vc for safety for hand placement and FWW safety. Pt unable to keep RLE up and tends to put R toes down for balance.HOB was up for bed mobility , therefore from flat bed pt would need MAX A. M8 OT- IP Objective Assessments Start: 06/04/18 16:20 Freq: Status: Active Protocol: Document 06/05/18 09:17 [facility] (Rec: 06/05/18 09:36 [facility] [id number]) OT Gross Range of Motion Upper Extremity Range of Motion ROM Impairments Lue decreased due to stiffness 0-100 AROM. RUE grossly WFL. OT Strength Comments Strength Comments LUE 3+/5, RUE 4-/5. M9 OT- IP Assessment and Plan Start: 06/04/18 16:20 Freq: Status: Active Protocol: Document 06/05/18 09:17 [facility] (Rec: 06/05/18 09:36 [facility] [id number]) OT Summary Assessment and Plan Potential Rehabilitation Potential Fair Analytic Complexity at Evaluation Moderate Summary OT Impairments Pain Strength Balance Coordination Functional Cognition Functional Mobility Grooming Dressing Toileting Bathing Toilet Transfers Shower Transfers Progress Towards Goals Slow Progress due to Pain Slow Progress due to Medical Issues Slow Progress due to Activity Tolerance Slow Progress due to Cognition Assessment Summary Pt MOD complexity main barriers are steps, weakness, decreased endurance and now needing extensive assist for ADL's and functional mobility. Pt would benefit from skilled rehab to improve overall strength, independence and safety prior to going home as currently a high fall risk. Goals Dressing Goal Minimal Assistance Toileting Goal Contact Guard Assistance Bathing Goal Minimal Assistance Toilet Transfer Goal Minimal Assistance Shower Transfer Goal Minimal Assistance Patient/Caregiver Education Goal Demonstrate Energy Conservation and Pacing Days to Meet Goals 7 Frequency of Treatment Frequency Of Treatment Once a Day Treatment Plan OT Treatment Plan ADL Training Functional Cognition Training Functional Mobility Patient/Family Education Discharge Planning Other Treatment Recommendations and Next BUE exercises to improve Treatment Focus transfer function, energy conservation, AED with ADL's. Discharge Recommendations OT Discharge Recommendations SNF Rehab
[2018-06-05] MEDS: levoFLOXacin 750 MG/150 ML PIGGYBACK 100 MG IV (13:31)
--- NOTE | 2018-06-05 14:40 | PT.IPTN ---
Current Diagnoses Chronic obstructive pulmonary disease with (acute) exacerbation (06/03/18) Physical Therapy Treatment Note M2 PT-IP Current Condition Start: 06/04/18 17:12 Freq: NEEDED Status: Active Protocol: Document 06/05/18 08:44 MDD (Rec: 06/05/18 11:38 [facility] [id number]) Physical Therapy Current Condition Current Condition Evaluation Date 06/05/18 Treatment Diagnosis s/p GLF, R hip fracture w/ femoral itzel failure Onset Date 06/03/18 Precautions Other Precautions christine catheter. NWB R LE ( still awaiting clarification from surgeon/ortho) Weight Bearing Status Weight Bearing Status Non-Weight Bearing Allowed Weight Bearing Amount (enter % Do to recent fall , and prior or #) (%) injury x-ray showed no new right femoral fx or dislocation . Stable bent appearance of proximal intramedullary femoral itzel. Pt states that he is NWB to RLE, to confirm with physician. M3 PT-IP Subjective Start: 06/04/18 17:12 Freq: NEEDED Status: Active Protocol: Document 06/05/18 14:40 MDD (Rec: 06/05/18 16:27 MDD [id number]) Subjective Physical Therapy Visit Type Type Treatment Note Visit Start Time 14:20 Visit Stop Time 14:40 Total Visit Minutes 20 Number of PERSONAL INJURY SPECIALIST Visits 0 Physical Therapy Visit Comments Patient Comments Pt refuses out of bed transfers this afternoon. Reports he feels comfortable with how he is able to transfer. Is agreeable to participate in bed exercises this day. Therapy Pain Assessment Pain When Pain Assessed At Rest Pain Present Pain Present Pain Reported Location Right Hip Intensity 6 Scale Used Numeric (1 - 10) Pain Behaviors Facial Grimacing M4 PT-IP Mobility and Gait Start: 06/04/18 17:12 Freq: NEEDED Status: Active Protocol: Document 06/05/18 08:44 MDD (Rec: 06/05/18 11:38 [facility] [id number]) PT-Bed Mobility Assessment Supine to Sit Supine to Sit Contact Guard Assistance Head of Bed Elevated Bedrails Scooting Scooting to Edge of Bed Standby Assistance PT-Transfer Assessment Sit to and From Stand Sit to and from Stand Minimal Assistance Equipment Transfer Assistive Device Gait Belt Front Wheeled Walker Transfers Transfer Destination Chair Transfer Technique Stand Step Pivot Transfer Ability Level of Assist Minimal Assistance Comments Mobility Comments Pt able to transfer, but unable to perform NWB R LE. Performed with TTWB, needed assistance steadying walker for safety with transfer. Pt prefers to do things his way and not very receptive to cueing this day. PT-Balance Assessment Sitting Balance and Reactions Static Sitting Balance Ability Normal Dynamic Sitting Balance Ability Normal Standing Balance and Reactions Static Standing Balance Ability Good Dynamic Standing Balance Ability Fair Device Used FWW M5 PT-IP Objective Assessments Start: 06/04/18 17:12 Freq: NEEDED Status: Active Protocol: Document 06/05/18 08:44 MDD (Rec: 06/05/18 11:38 [facility] [id number]) Orientation Orientation/Cognition Level of Alertness Alert Orientation Name Year Place Situation Language Function Ability No Deficits Noted Hard of Hearing Safety Awareness Decreased Safety Awareness Memory Description Short Term Impaired Comments Pt seems a bit impulsive with movements, not receptive to cueing from therapy this day. Gross Range of Motion Lower Extremity ROM Assessment Within Functional Limits Strength Lower Extremity Strength Assessment Left Impaired Comments Strength Comments Pt able to lift R LE off bed and independently move it for bed mobility, unable to tolerate MMT due to pain. Sensation Assessment Sensation Gross Sensation Right LE Impaired Light Touch Impaired Comments Sensation Comments Pt reports tingling feeling with impaired light touch to plantar surface R foot and heel. M6 PT-IP Treatment Start: 06/04/18 17:12 Freq: NEEDED Status: Active Protocol: Document 06/05/18 14:40 MDD (Rec: 06/05/18 16:27 MDD [id number]) Physical Therapy Treatment Exercises Exercises Ankle Pumps Gluteal Sets Quad Sets Heel Slides Straight Leg Raises Supine Hip Abduction Short Arc Quads Other Treatments Other Treatment Performed straight leg raises performed with min A on R. M7 PT-IP Assessment and Plan Start: 06/04/18 17:12 Freq: NEEDED Status: Active Protocol: Document 06/05/18 14:40 [facility]D (Rec: 06/05/18 16:27 [facility] [id number]) PT Summary Assessment and Plan Potential Rehabilitation Potential Good Status of Condition at Evaluation Stable Summary Impairments Pain Transfers Progress Towards Goals Progressing Toward Goals Assessment Summary Pt refusing additional transfer training today. PT attempted to practice squat pivot transfer to perform truly NWB as pt required toe touch this am for transfer. Will attempt again tomorrow am . Decrease frequency to once per day due to WB precautions limiting additional training past transfers. Goals Bed Mobility Goal Independent Transfer Goal Independent Days to Meet Goals 3 Frequency of Treatment Frequency Of Treatment Once a Day Treatment Plan Physical Therapy Treatment Plan Bed Mobility Training Transfer Training Therapeutic Exercise Discharge Planning Recommendations To Nursing Amount of Assist Needed 1 Person Assist Discharge Recommendations PT Discharge Recommendations SNF Rehab
[2018-06-05 17:34] LABS: Glucose 552 mg/dL (80-110)
--- NOTE | 2018-06-05 18:21 | PC.NURSE ---
Addendum entered by Anabell Carter R.N. 06/05/18 20:38: 2030 - Dr. Renner, call to discuss elevated BG. Notified of current check 433. MD to order insulin coverage. Monitor. Original Note: 1700 -Pt blood glucose fingerstick, >500. Pt had just fininshed eating watermelon and has milk duds at bedside. Discussed BG, steriods and effects of healing. Pt and daughter verbalize understanding. Lab draw sent. aware of above. Verbal order to DC IV steriods.
[2018-06-05] MEDS: PRAVASTATIN 20 MG TABLET 40 MG PO (20:27)
[2018-06-05] MEDS: TERAZOSIN 1 MG CAPSULE PO (20:28)
[2018-06-05] MEDS: TERAZOSIN 5 MG CAPSULE PO (20:28)
[2018-06-05] MEDS: INSULIN ASPART 100 UNIT/ML INSULN PEN SUBCUT (20:48)
[2018-06-05] MEDS: INSULIN GLARGINE 100 UNIT/ML 3ML PEN 10 UNIT SUBCUT (20:49)
[2018-06-06] VITALS (13 sets, daily range): BP systolic 101–148; BP diastolic 54–71; PULSE 62–99; RESP 14–19; TEMP 36.7–37.3; O2SAT 91–98
[2018-06-06] MEDS: OXYCODONE IR 5 MG TABLET PO ×3 (00:21→14:39)
[2018-06-06] MEDS: ALBUTEROL/IPRATROPIUM 3 ML AMPUL INH ×4 (02:17→19:29)
--- NOTE | 2018-06-06 07:02 | PC.NURSE ---
Patient arrived to floor from ICU. Came in CCU bed and remains in it. Sats little low 88-89% on RA. Reoprted his hx is COPD retainer. No O2 added. Patient has been snoring softly .
--- NOTE | 2018-06-06 09:15 | PT.IPTN ---
Current Diagnoses Chronic obstructive pulmonary disease with (acute) exacerbation (06/03/18) Physical Therapy Treatment Note M2 PT-IP Current Condition Start: 06/04/18 17:12 Freq: NEEDED Status: Active Protocol: Document 06/05/18 08:44 MDD (Rec: 06/05/18 11:38 MDD [id number]) Physical Therapy Current Condition Current Condition Evaluation Date 06/05/18 Treatment Diagnosis s/p GLF, R hip fracture w/ femoral itzel failure Onset Date 06/03/18 Precautions Other Precautions christine catheter. NWB R LE ( still awaiting clarification from surgeon/ortho) Weight Bearing Status Weight Bearing Status Non-Weight Bearing Allowed Weight Bearing Amount (enter % Do to recent fall , and prior or #) (%) injury x-ray showed no new right femoral fx or dislocation . Stable bent appearance of proximal intramedullary femoral itzel. Pt states that he is NWB to RLE, to confirm with physician. M3 PT-IP Subjective Start: 06/04/18 17:12 Freq: NEEDED Status: Active Protocol: Document 06/06/18 09:15 AB (Rec: 06/06/18 11:46 AB [id number]) Subjective Physical Therapy Visit Type Type Treatment Note Visit Start Time 09:15 Visit Stop Time 09:35 Total Visit Minutes 20 Number of DEMONSTRATOR ELECTRIC GAS APPLIANCES Visits 0 Physical Therapy Visit Comments Patient Comments pt agreeable to get up. Therapy Pain Assessment Pain Present Pain Present Pain Reported Location Right Hip Scale Used pain scale not stated M4 PT-IP Mobility and Gait Start: 06/04/18 17:12 Freq: NEEDED Status: Active Protocol: Document 06/06/18 09:15 AB (Rec: 06/06/18 11:46 AB [id number]) PT-Bed Mobility Assessment Supine to Sit Supine to Sit Contact Guard Assistance Head of Bed Elevated Bedrails Scooting Scooting to Edge of Bed Standby Assistance PT-Transfer Assessment Sit to and From Stand Sit to and from Stand Contact Guard Assistance Minimal Assistance 1 Person Assistance Use of Upper Extremities Equipment Transfer Assistive Device Gait Belt Front Wheeled Walker Transfers Transfer Destination Chair Transfer Technique Stand Step Pivot Transfer Ability Level of Assist Minimal Assistance 1 Person Assistance Use of Upper Extremities Comments Mobility Comments pt educated on NWB on RLE but pt stated that he cannot do it since he has problems with L shoulder. pt educated on importance of precautions and understood but unable to maintain NWB on RLE for standing and transfer to chair using FWW Gait Assessment Comments Gait Comments did not perform due to pt not able to maintain NWB on RLE even for transfers. M5 PT-IP Objective Assessments Start: 06/04/18 17:12 Freq: NEEDED Status: Active Protocol: Document 06/05/18 08:44 MDD (Rec: 06/05/18 11:38 MDD [id number]) Orientation Orientation/Cognition Level of Alertness Alert Orientation Name Year Place Situation Language Function Ability No Deficits Noted Hard of Hearing Safety Awareness Decreased Safety Awareness Memory Description Short Term Impaired Comments Pt seems a bit impulsive with movements, not receptive to cueing from therapy this day. Gross Range of Motion Lower Extremity ROM Assessment Within Functional Limits Strength Lower Extremity Strength Assessment Left Impaired Comments Strength Comments Pt able to lift R LE off bed and independently move it for bed mobility, unable to tolerate MMT due to pain. Sensation Assessment Sensation Gross Sensation Right LE Impaired Light Touch Impaired Comments Sensation Comments Pt reports tingling feeling with impaired light touch to plantar surface R foot and heel. M6 PT-IP Treatment Start: 06/04/18 17:12 Freq: NEEDED Status: Active Protocol: Document 06/06/18 09:15 AB (Rec: 06/06/18 11:46 AB [id number]) Physical Therapy Treatment Education Education Provided Precautions Weight Bearing Status Safety M7 PT-IP Assessment and Plan Start: 06/04/18 17:12 Freq: NEEDED Status: Active Protocol: Document 06/06/18 09:15 AB (Rec: 06/06/18 11:46 AB [id number]) PT Summary Assessment and Plan Potential Rehabilitation Potential Fair Summary Impairments Pain ROM Strength Balance Bed Mobility Transfers Gait Activity Tolerance Progress Towards Goals Slow Progress - Other Assessment Summary pt unable to maintain NWB on RLE during transfers affecting safety and mobility. further clarification needed for weight bearing status but per evaluating PT, pt is is NWB on RLE. Goals Bed Mobility Goal Independent Transfer Goal Independent Days to Meet Goals 3 Frequency of Treatment Frequency Of Treatment Once a Day Treatment Plan Physical Therapy Treatment Plan Bed Mobility Training Transfer Training Therapeutic Exercise Discharge Planning Recommendations To Nursing Amount of Assist Needed 1 Person Assist Discharge Recommendations PT Discharge Recommendations SNF Rehab
[2018-06-06] MEDS: PANTOPRAZOLE 40 MG VIAL IV (10:17)
[2018-06-06] MEDS: INSULIN ASPART 100 UNIT/ML INSULN PEN SUBCUT ×4 (10:17→20:46)
[2018-06-06] MEDS: LORATADINE 10 MG TABLET PO (10:18)
[2018-06-06] MEDS: SPIRONOLACTONE 25 MG TABLET PO (10:18)
[2018-06-06] MEDS: LISINOPRIL 5 MG TABLET 2.5 MG PO (10:18)
[2018-06-06] MEDS: FUROSEMIDE 40 MG TABLET 80 MG PO (10:18)
[2018-06-06] MEDS: ENOXAPARIN 40 MG/0.4 ML SYRINGE SUBCUT (10:18)
[2018-06-06] MEDS: NYSTATIN 100,000 UNIT/ML ORAL SUSP UDC 500000 UNIT PO ×2 (10:18→20:48)
[2018-06-06] MEDS: SODIUM CHLORIDE 0.9% FLUSH 10 ML IV ×2 (10:18→20:50)
[2018-06-06] MEDS: DIGOXIN 0.125 MG TABLET PO (10:19)
[2018-06-06] MEDS: ASPIRIN EC 81 MG TABLET PO (10:19)
[2018-06-06] MEDS: POTASSIUM CHLORIDE 20 MEQ TAB PO (10:19)
[2018-06-06] MEDS: BISOPROLOL 5 MG TABLET PO (10:19)
[2018-06-06] MEDS: CITALOPRAM 20 MG TABLET 40 MG PO (10:19)
[2018-06-06] MEDS: CHOLECALCIFEROL (VITAMIN D3) 1,000 UNIT TABLET 2000 UNIT PO (10:19)
[2018-06-06] MEDS: ALBUTEROL 2.5 MG/3 ML NEB (ADULT) INH (11:36)
--- NOTE | 2018-06-06 14:18 | OT.IP.TRT ---
Current Diagnoses Chronic obstructive pulmonary disease with (acute) exacerbation (06/03/18) Occupational Therapy Treatment Note M2 OT-IP Current Condition Start: 06/04/18 16:20 Freq: Status: Active Protocol: Document 06/05/18 09:17 [facility] (Rec: 06/05/18 09:36 [facility] [id number]) Occupational Therapy Current Condition Current Condition Evaluation Date 06/05/18 Treatment Diagnosis Respiratory Failure Diagnosis Onset Date 06/03/18 Weight Bearing Status Weight Bearing Status Non-Weight Bearing Allowed Weight Bearing Amount (enter % Do to recent fall , and prior or #) (%) injury x-ray showed no new right femoral fx or dislocation . Stable bent appearance of proximal intramedullary femoral itzel. Pt states that he is NWB to RLE, to confirm with physician. M3 OT- IP Subjective and Pain Start: 06/04/18 16:20 Freq: Status: Active Protocol: Document 06/06/18 14:17 [facility] (Rec: 06/06/18 14:18 [facility] [id number]) OT- Subjective Occupational Therapy Visit Type Type Patient Refusal Notes Pt states just got back in bed and too tired and wanting to wait from tomorrow for Ot session.
--- NOTE | 2018-06-06 14:48 | CM.DPC ---
DCP: continued: case received, EMR reviewed and met this afternoon with pt and his POA daughter Jo. Jo confirmed that they are hopeful that pt will be accepted by [facility]/Cassia is currently reviewing. She notes that pt was at [facility] in January 2018 and at that point he did apply for Medicaid once he got to day 21 as has Medicare only, no supplement. She noted it did cover some of the days but that as far as she knew oncee he went home from [facility] it was no longer active. She says the [facility] staff did assist her with this application. She reports that her father needs ankle surgery at [facility] and that as far as she knows this is set for next : 06/12. She states that she and her are planning to move from [place] to [place] to help her father. She is changing jobs and will be working for [employer] in [place] and [employer] so all will happen fairly quickly. Cassia is updated re all this, is reviewing. If pt does have Medicare days that are still active (> 60 day period of wellness) acceptance is expected. PASRR: needed. DCP team will continue to follow. Last physician note is Dr. Renner yesterday....no indication of when pt might be stable for the d/c.
--- NOTE | 2018-06-06 16:44 | PM.PN.1 ---
Subjective Date Patient Seen: 06/06/18 Time Patient Seen: 08:10 Interval history: This is a 67-year-old male presenting with is acute on chronic hypoxic and hypercapnic respiratory failure secondary to COPD/CHF exacerbation. No events overnight, overall reports clinical improvement, getting transitioned from IV to oral medications. Exam Vital Signs (past 8 hours): - 06/06/18 09:15 06/06/18 10:19 06/06/18 11:37 Temperature Pulse Rate 86 62 86 Respiratory Rate 14 Blood Pressure Pulse Oximetry 95 97 06/06/18 12:02 06/06/18 13:54 06/06/18 15:10 Temperature 98.3 F 99.1 F Pulse Rate 79 86 86 Respiratory Rate 18 18 18 Blood Pressure 118/68 101/54 L Pulse Oximetry 98 96 Fraction of Inspired Oxygen 25 SaO2/FiO2 Ratio 396 Oxygen Delivery Method Room Air Oxygen Flow Rate 0 Narrative Exam Narrative: Constitutional: Well-nourished well-developed male in mild respiratory distress he is alert and oriented x3 HEENT: Unremarkable Neck: Supple no lymphadenopathy no jugular venous Pulmonary: Distant breath sounds, with no evidence for auscultation of wheezing Cardiovascular: Distant heart sounds, regular rhythm rate, no murmurs. Palpable defibrillator in the left upper chest. Gastrointestinal: Abdomen is soft, nontender, nondistended, bowel sounds present, no discernible organomegaly. Extremities: Warm to touch, no edema Skin: No lesions, no rash Objective Imaging CT scan - head: Radiologist's impression: IMPRESSION: 1. No acute intracranial abnormality. 2. No visible fractures or sinus opacifications. 3. Age related atrophy, chronic deep white matter ischemic changes and vascular calcifications. Dictated by: Leo Vines M.D. on 06/03/2018 at 11:19 Approved by: Leo Vines M.D. on 06/03/2018 at 11:22 XR femoral: Radiologist's impression: IMPRESSION: No gross new right femoral fracture or dislocation. Stable bent appearance of proximal intramedullary femoral itzel. Stable right femoral alignment. Dictated by: Memo Glez M.D. on 06/03/2018 at 11:05 Approved by: Memo Glez M.D. on 06/03/2018 at 11:07 Chest x-ray: My impression: IMPRESSION: Mild congestive changes. No definite focal infiltrate. Dictated by: Memo Glez M.D. on 06/03/2018 at 11:08 Approved by: Memo Glez M.D. on 06/03/2018 at 11:09 Labs Result Diagrams: 06/03/18 11:14 06/05/18 17:03 Labs: Laboratory Results - last 24 hr 06/05/18 17:03 Glucose 552 H* D Assessment & Plan Plan: Assessment/Plan Narrative: 1. Acute on chronic hypoxemic hypercapnic respiratory failure: Resolving 2. COPD/emphysema with exacerbation: Resolving 3. Congestive heart failure, acute on chronic, diastolic: Resolving 4. Obdulio mellitus, type 2: Uncontrolled because patient declining insulin therapy 5. Stable bent appearance of proximal intramedullary femoral itzel. Stable right femoral alignment. 6. Status post transcatheter aortic valve replacement, conversely asymptomatic. Plan: 1. Transition patient to oral steroids, continue breathing treatments, oral expectorants, symptomatic and supportive care. 2. Patient is tentatively scheduled for admission to [facility] to address changes to his hardware on right femoral bone next week. 3. Encourage patient to start insulin therapy, request hemoglobin A1c level.
[2018-06-06] MEDS: levoFLOXacin 250 MG TABLET 750 MG PO (16:47)
[2018-06-06] MEDS: predniSONE 20 MG TABLET 40 MG PO (16:48)
[2018-06-06 19:06] LABS: Hemoglobin A1C% w Est Avg Glu 8.1 % (4.0-6.0)
[2018-06-06 19:26] LABS: Digoxin 0.7 ng/mL (0.8-2.0)
[2018-06-06] MEDS: INSULIN GLARGINE 100 UNIT/ML 3ML PEN 10 UNIT SUBCUT (20:47)
[2018-06-06] MEDS: PRAVASTATIN 20 MG TABLET 40 MG PO (20:50)
[2018-06-06] MEDS: TERAZOSIN 1 MG CAPSULE PO (20:50)
[2018-06-06] MEDS: TERAZOSIN 5 MG CAPSULE PO (20:51)
[2018-06-07] VITALS (10 sets, daily range): BP systolic 115–135; BP diastolic 50–71; PULSE 67–85; RESP 12–19; TEMP 36.4–37.4; O2SAT 90–97
[2018-06-07] MEDS: ALBUTEROL/IPRATROPIUM 3 ML AMPUL INH ×3 (06:06→17:50)
[2018-06-07 07:06] LABS: Add Manual Diff / Slide Review NO; Basophils Percent Auto 0.1 % (0-2); Hematocrit 34.3 % (41-53); Hemoglobin 11.6 g/dL (13.5-17.5); Lymphocytes Percent Auto 6.9 % (25-40); Mean Corpuscular Volume 91.2 fL (80-100); Monocytes Percent Auto 5.9 % (3-14); Neutrophils Absolute Auto 7200 /uL (3000-5900); Neutrophils Percent Auto 87.1 % (50-75); Platelet Count 185 X10^3/uL (150-400); Red Blood Cell Count 3.76 X10^6/uL (4.5-5.9); Red Cell Distribution Width 13.4 % (11.6-14.8); White Blood Cell Count 8.3 X10^3/uL (4.5-11.0)
[2018-06-07 07:24] LABS: INR 1.1 (0.9-1.3); Prothrombin Time 11.8 SECONDS (10.1-12.7)
[2018-06-07 07:29] LABS: BUN Creatinine Ratio 31.8 (6-22); Blood Urea Nitrogen 35 mg/dL (9-20); Calcium 8.5 mg/dL (8.4-10.2); Carbon Dioxide 35 mmol/L (22-32); Chloride 94 mmol/L (98-107); Estimated Glomerular Filt Rate > 60.0 mL/min (>60); Glucose 331 mg/dL (80-110); HEMOLYSIS < 15 (0-50); Magnesium 2.5 mg/dL (1.6-2.3); Potassium 4.7 mmol/L (3.4-5.1); Sodium 135 mmol/L (137-145)
--- NOTE | 2018-06-07 09:18 | CM.DPC ---
DCP Cont: Called [facility] and spoke to Cassia, to inquire upon status of admission. She stated that she would like a little bit more information regarding his ambulation status, as well as his oxygen. Stated that they may be able to accept him tomorrow, Saturday. Let her know that this would be discussed at rounds, and will inquire with therapy, as well as hospitalist. P: DC to [facility] when stable. Corinne Merchant RN/Foreign Exchange Trader
[2018-06-07] MEDS: LISINOPRIL 5 MG TABLET 2.5 MG PO (09:21)
[2018-06-07] MEDS: BISOPROLOL 5 MG TABLET PO (09:21)
[2018-06-07] MEDS: INSULIN ASPART 100 UNIT/ML INSULN PEN SUBCUT ×4 (09:21→21:01)
[2018-06-07] MEDS: LORATADINE 10 MG TABLET PO (09:22)
[2018-06-07] MEDS: predniSONE 20 MG TABLET 40 MG PO (09:22)
[2018-06-07] MEDS: CITALOPRAM 20 MG TABLET 40 MG PO (09:22)
[2018-06-07] MEDS: SPIRONOLACTONE 25 MG TABLET PO (09:22)
[2018-06-07] MEDS: NYSTATIN 100,000 UNIT/ML ORAL SUSP UDC 500000 UNIT PO ×2 (09:22→21:02)
[2018-06-07] MEDS: ASPIRIN EC 81 MG TABLET PO (09:23)
[2018-06-07] MEDS: CHOLECALCIFEROL (VITAMIN D3) 1,000 UNIT TABLET 2000 UNIT PO (09:23)
[2018-06-07] MEDS: levoFLOXacin 250 MG TABLET 750 MG PO (09:23)
[2018-06-07] MEDS: POTASSIUM CHLORIDE 20 MEQ TAB PO (09:23)
[2018-06-07] MEDS: OXYCODONE IR 5 MG TABLET PO ×3 (09:23→23:57)
[2018-06-07] MEDS: FUROSEMIDE 40 MG TABLET 80 MG PO (09:23)
[2018-06-07] MEDS: DIGOXIN 0.125 MG TABLET PO (09:23)
[2018-06-07] MEDS: SODIUM CHLORIDE 0.9% FLUSH 10 ML IV ×2 (09:24→21:03)
[2018-06-07] MEDS: PANTOPRAZOLE 40 MG VIAL IV (09:24)
[2018-06-07] MEDS: ENOXAPARIN 40 MG/0.4 ML SYRINGE SUBCUT (09:24)
--- NOTE | 2018-06-07 11:45 | PT.IPTN ---
Current Diagnoses Chronic obstructive pulmonary disease with (acute) exacerbation (06/03/18) Physical Therapy Treatment Note M2 PT-IP Current Condition Start: 06/04/18 17:12 Freq: NEEDED Status: Active Protocol: Document 06/05/18 08:44 MDD (Rec: 06/05/18 11:38 MDD [id number]) Physical Therapy Current Condition Current Condition Evaluation Date 06/05/18 Treatment Diagnosis s/p GLF, R hip fracture w/ femoral itzel failure Onset Date 06/03/18 Precautions Other Precautions christine catheter. NWB R LE ( still awaiting clarification from surgeon/ortho) Weight Bearing Status Weight Bearing Status Non-Weight Bearing Allowed Weight Bearing Amount (enter % Do to recent fall , and prior or #) (%) injury x-ray showed no new right femoral fx or dislocation . Stable bent appearance of proximal intramedullary femoral itzel. Pt states that he is NWB to RLE, to confirm with physician. M3 PT-IP Subjective Start: 06/04/18 17:12 Freq: NEEDED Status: Active Protocol: Document 06/07/18 11:45 AB (Rec: 06/07/18 13:16 AB [id number]) Subjective Physical Therapy Visit Type Type Treatment Note Visit Start Time 11:45 Visit Stop Time 12:08 Total Visit Minutes 23 Number of ROBOTICS SPECIALIST Visits 0 Physical Therapy Visit Comments Patient Comments pt agreeable to get up M4 PT-IP Mobility and Gait Start: 06/04/18 17:12 Freq: NEEDED Status: Active Protocol: Document 06/07/18 11:45 AB (Rec: 06/07/18 13:16 AB [id number]) PT-Bed Mobility Assessment Supine to Sit Supine to Sit Minimal Assistance 1 Person Assistance Head of Bed Elevated PT-Transfer Assessment Sit to and From Stand Sit to and from Stand Contact Guard Assistance Minimal Assistance 1 Person Assistance Use of Upper Extremities Equipment Transfer Assistive Device Gait Belt Front Wheeled Walker Orthotic/Prosthetic Devices or Brace: No Transfers Transfer Destination Chair Transfer Technique Stand Step Pivot Transfer Ability Level of Assist Contact Guard Assistance Minimal Assistance Comments Mobility Comments pt educated on NWB on RLE but unable to maintain during standing and transfers and completed more of a partial weight bearing during transfers with heel of foot elevated. pt was able to maintain standing ~ 30 sec using FWW CGA to min A and cues for weight bearing precaution. pt completed R hip/knee flexion and R knee extension in standing. M5 PT-IP Objective Assessments Start: 06/04/18 17:12 Freq: NEEDED Status: Active Protocol: Document 06/05/18 08:44 MDD (Rec: 06/05/18 11:38 MDD [id number]) Orientation Orientation/Cognition Level of Alertness Alert Orientation Name Year Place Situation Language Function Ability No Deficits Noted Hard of Hearing Safety Awareness Decreased Safety Awareness Memory Description Short Term Impaired Comments Pt seems a bit impulsive with movements, not receptive to cueing from therapy this day. Gross Range of Motion Lower Extremity ROM Assessment Within Functional Limits Strength Lower Extremity Strength Assessment Left Impaired Comments Strength Comments Pt able to lift R LE off bed and independently move it for bed mobility, unable to tolerate MMT due to pain. Sensation Assessment Sensation Gross Sensation Right LE Impaired Light Touch Impaired Comments Sensation Comments Pt reports tingling feeling with impaired light touch to plantar surface R foot and heel. M6 PT-IP Treatment Start: 06/04/18 17:12 Freq: NEEDED Status: Active Protocol: Document 06/07/18 11:45 AB (Rec: 06/07/18 13:16 AB [id number]) Physical Therapy Treatment Education Education Provided Weight Bearing Status Safety M7 PT-IP Assessment and Plan Start: 06/04/18 17:12 Freq: NEEDED Status: Active Protocol: Document 06/07/18 11:45 AB (Rec: 06/07/18 13:16 AB [id number]) PT Summary Assessment and Plan Potential Rehabilitation Potential Fair Summary Impairments Strength Balance Bed Mobility Transfers Gait Activity Tolerance Progress Towards Goals Slow Progress - Other Assessment Summary pt continues to require 1 person assist with mobility and unable to maintain weight bearing restriction. pt stated that he is scheduled to go to [facility] for hip surgery revision next week. Goals Bed Mobility Goal Independent Transfer Goal Independent Days to Meet Goals 3 Frequency of Treatment Frequency Of Treatment Once a Day Treatment Plan Physical Therapy Treatment Plan Bed Mobility Training Transfer Training Therapeutic Exercise Discharge Planning Recommendations To Nursing Amount of Assist Needed 1 Person Assist Discharge Recommendations PT Discharge Recommendations SNF Rehab
--- NOTE | 2018-06-07 12:12 | CM.DPC ---
Addendum entered by Corinne Merchant R.N. 06/07/18 12:23: Patient is aware of plan at [facility] and is okay with this. Original Note: DCP Cont: Spoke to Cassia at [facility]. Gave her an update on patient's mobility and oxygen. The can accept him, and if discharge orders are obtained tomorrow, can pick patient up at 1:00. Called and updated daughter, Jo as well. Patient still will be having his surgery next , and can return to [facility] after. Also confirmed this with Cassia. P: Patient to go to [facility], tomorrow, if stable and orders are received. Corinne Merchant RN/Solder Cream Maker
--- NOTE | 2018-06-07 16:13 | PM.PN.1 ---
Subjective Date Patient Seen: 06/07/18 Time Patient Seen: 14:45 Interval history: This is a 67-year-old male presenting with is acute on chronic hypoxic and hypercapnic respiratory failure secondary to COPD/CHF exacerbation. No events overnight, with complains of productive cough, mild wheezing on transition to PO medications. Exam Vital Signs (past 8 hours): - 06/07/18 09:00 06/07/18 09:23 06/07/18 12:00 Temperature 97.8 F 97.6 F Pulse Rate 78 78 83 Respiratory Rate 16 18 Blood Pressure 129/67 H 121/67 H Pulse Oximetry 94 92 06/07/18 12:36 Temperature Pulse Rate 67 Respiratory Rate 12 Blood Pressure Pulse Oximetry 96 Fraction of Inspired Oxygen 25 SaO2/FiO2 Ratio 396 Oxygen Delivery Method Room Air Oxygen Flow Rate 0 Narrative Exam Narrative: Constitutional: Well-nourished well-developed male in mild respiratory distress he is alert and oriented x3 HEENT: Unremarkable, except for patient being edentulous Neck: Supple no lymphadenopathy no jugular venous Pulmonary: Distant breath sounds, with mildly extended expiration and distant wheezing. Cardiovascular: Distant heart sounds, regular rhythm rate, no murmurs. Palpable defibrillator in the left upper chest. Gastrointestinal: Abdomen is soft, nontender, nondistended, bowel sounds present, no discernible organomegaly. Extremities: Warm to touch, no edema, with mild deformity of the right lower extremity had femoral bone level Skin: No lesions, no rash Objective Imaging Chest x-ray: Radiologist's impression: CT scan - head: Radiologist's impression: IMPRESSION: 1. No acute intracranial abnormality. 2. No visible fractures or sinus opacifications. 3. Age related atrophy, chronic deep white matter ischemic changes and vascular calcifications. Dictated by: Leo Vines M.D. on 06/03/2018 at 11:19 Approved by: Leo Vines M.D. on 06/03/2018 at 11:22 XR femoral: Radiologist's impression: IMPRESSION: No gross new right femoral fracture or dislocation. Stable bent appearance of proximal intramedullary femoral itzel. Stable right femoral alignment. Dictated by: Memo Glez M.D. on 06/03/2018 at 11:05 Approved by: Memo Glez M.D. on 06/03/2018 at 11:07 Chest x-ray: My impression: IMPRESSION: Mild congestive changes. No definite focal infiltrate. Dictated by: Memo Glez M.D. on 06/03/2018 at 11:08 Approved by: Memo Glez M.D. on 06/03/2018 at 11:09 Labs Result Diagrams: 06/07/18 06:23 06/07/18 06:23 Labs: Laboratory Results - last 24 hr 06/06/18 06/06/18 06/07/18 18:28 18:28 06:23 WBC 8.3 RBC 3.76 L Hgb 11.6 L Hct 34.3 L MCV 91.2 MCH 31.0 MCHC 34.0 RDW 13.4 Plt Count 185 Neut % (Auto) 87.1 H Lymph % (Auto) 6.9 L Jackson % (Auto) 5.9 Eos % (Auto) 0.0 L Baso % (Auto) 0.1 Neut # (Auto) 7200 H PT INR Sodium Potassium Chloride Carbon Dioxide BUN Creatinine Estimated GFR BUN/Creatinine Ratio Glucose Hemoglobin A1c 8.1 H Calcium Magnesium Digoxin 0.7 L 06/07/18 06/07/18 06:23 06:23 WBC RBC Hgb Hct MCV MCH MCHC RDW Plt Count Neut % (Auto) Lymph % (Auto) Jackson % (Auto) Eos % (Auto) Baso % (Auto) Neut # (Auto) PT 11.8 INR 1.1 Sodium 135 L Potassium 4.7 Chloride 94 L Carbon Dioxide 35 H BUN 35 H Creatinine 1.10 Estimated GFR > 60.0 BUN/Creatinine Ratio 31.8 H Glucose 331 H D Hemoglobin A1c Calcium 8.5 Magnesium 2.5 H Digoxin Assessment & Plan Plan: Assessment/Plan Narrative: 1. Acute on chronic hypoxemic hypercapnic respiratory failure: Multifactorial, resolving. Secondary to COPD/CHF exacerbation. Continue to treat underlying medical problems. 2. COPD/emphysema with exacerbation: Resolving . Continue breathing treatments, oral expectorant, steroids per tapering scheme, symptomatic and supportive care. 3. Congestive heart failure, acute on chronic, diastolic: Resolving, continue current diuresis oral Lasix 4. 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 Patient was declining insulin therapy citing inability to manage insulin therapy on his own upon discharge. Per patient request, starting therapy with oral hypoglycemics, even though it may not establish required control. 5. History of femoral bone fracture requiring ORIF: Current imaging with stable bent appearance of proximal intramedullary femoral itzel. Stable right femoral alignment. Patient is scheduled for evaluation/consultation at [facility] next week, possible surgical intervention. 6. Deconditioning/debility: Multifactorial, pending placement to rehab consult at [facility] in AM Time Spent With Patient Time with patient: 25 - 35 minutes
[2018-06-07] MEDS: METFORMIN 850 MG TABLET PO (16:55)
[2018-06-07] MEDS: GUAIFENESIN/DM 200/20 MG/10 ML UDC PO (16:55)
--- NOTE | 2018-06-07 17:20 | OT.IP.TRT ---
Current Diagnoses Chronic obstructive pulmonary disease with (acute) exacerbation (06/03/18) Occupational Therapy Treatment Note M2 OT-IP Current Condition Start: 06/04/18 16:20 Freq: Status: Active Protocol: Document 06/05/18 09:17 [facility] (Rec: 06/05/18 09:36 [facility] [id number]) Occupational Therapy Current Condition Current Condition Evaluation Date 06/05/18 Treatment Diagnosis Respiratory Failure Diagnosis Onset Date 06/03/18 Weight Bearing Status Weight Bearing Status Non-Weight Bearing Allowed Weight Bearing Amount (enter % Do to recent fall , and prior or #) (%) injury x-ray showed no new right femoral fx or dislocation . Stable bent appearance of proximal intramedullary femoral itzel. Pt states that he is NWB to RLE, to confirm with physician. M3 OT- IP Subjective and Pain Start: 06/04/18 16:20 Freq: Status: Active Protocol: Document 06/07/18 17:20 [facility] (Rec: 06/07/18 17:20 [facility] [id number]) OT- Subjective Occupational Therapy Visit Type Type Patient Unavailable Notes Pt eating dinner and not able to see pt for OT today. M4 OT- IP ADL's Start: 06/04/18 16:20 Freq: Status: Active Protocol: Document 06/05/18 09:17 [facility] (Rec: 06/05/18 09:36 [facility] [id number]) OT ADL-Dressing General Eval Lower Body Dressing Ability Total Assistance Areas Needing Assistance Socks OT ADL-Toileting General Evaluation Toileting Ability Total Assistance Areas Needing Assistance Empty Catheter or Colostomy M6 OT- IP Functional Cognition Start: 06/04/18 16:20 Freq: Status: Active Protocol: Document 06/05/18 09:17 [facility] (Rec: 06/05/18 09:36 [facility] [id number]) Cognitive Factors Limiting Selfcare Function Cognitive Ability Level of Alertness Alert Patient Orientation Name Place Situation Attention Span Ability Capable of Focused Attention Capable of Sustained Attention Ability to Follow Commands Able to Follow One Step Commands Memory Description Short Term Impaired Working Impaired Safety Awareness Decreased Ability to Apply Precautions Underestimates Need for Assistance Problem Solving Ability Unable to Identify Errors Needs Assist to Identify Solutions Cognitive Comments Cognitive Assessment Comments Pt a bit impulsive, needing concrete commands, tends to want to do things his own way and disregarding precautions and safety awareness. M7 OT- IP Mobility and Balance Start: 08/15/18 16:20 Freq: Status: Active Protocol: Document 06/05/18 09:17 [facility] (Rec: 06/05/18 09:36 [facility] [id number]) OT- Bed Mobility Assessment Rolling Type of Rolling Roll to Left Supine to Sit Supine to Sit Assist Minimal Assistance OT-Transfer Assessment Sit to and From Stand Sit to and from Stand Minimal Assistance Transfers Transfer Ability Minimal Assistance 2 Person Assistance Technique Transfer Destination Chair Devices Transfer Assistive Devices Gait Belt Front Wheeled Walker Comments Mobility Comments EDISON mainly fo safety due to pt impulsive and needing vc for safety for hand placement and FWW safety. Pt unable to keep RLE up and tends to put R toes down for balance. M8 OT- IP Objective Assessments Start: 06/04/18 16:20 Freq: Status: Active Protocol: Document 06/05/18 09:17 [facility] (Rec: 06/05/18 09:36 [facility] [id number]) OT Gross Range of Motion Upper Extremity Range of Motion ROM Impairments Lue decreased due to stiffness 0-100 AROM. RUE groosly WFL. OT Strength Comments Strength Comments LUE 3+/5, RUE 4-/5. M9 OT- IP Assessment and Plan Start: 06/04/18 16:20 Freq: Status: Active Protocol: Document 06/05/18 09:17 [facility] (Rec: 06/05/18 09:36 [facility] [id number]) OT Summary Assessment and Plan Potential Rehabilitation Potential Fair Analytic Complexity at Evaluation Moderate Summary OT Impairments Pain Strength Balance Coordination Functional Cognition Functional Mobility Grooming Dressing Toileting Bathing Toilet Transfers Shower Transfers Progress Towards Goals Slow Progress due to Pain Slow Progress due to Medical Issues Slow Progress due to Activity Tolerance Slow Progress due to Cognition Assessment Summary Pt MOD complexity main barriers are steps, weakness, decreased endurance and now needing extensive assist for ADL's and functional mobility. Pt would benefit from skilled rehab to improve overall strength, independence and safety prior to going home as currently a high fall risk. Goals Dressing Goal Minimal Assistance Toileting Goal Contact Guard Assistance Bathing Goal Minimal Assistance Toilet Transfer Goal Minimal Assistance Shower Transfer Goal Minimal Assistance Patient/Caregiver Education Goal Demonstrate Energy Conservation and Pacing Days to Meet Goals 7 Frequency of Treatment Frequency Of Treatment Once a Day Treatment Plan OT Treatment Plan ADL Training Functional Cognition Training Functional Mobility Patient/Family Education Discharge Planning Other Treatment Recommendations and Next BUE exercises to improve Treatment Focus transfer function, energy conservation, AED with ADL's. Discharge Recommendations OT Discharge Recommendations SNF Rehab
[2018-06-07] MEDS: INSULIN GLARGINE 100 UNIT/ML 3ML PEN 10 UNIT SUBCUT (21:01)
[2018-06-07] MEDS: PRAVASTATIN 20 MG TABLET 40 MG PO (21:02)
[2018-06-07] MEDS: TERAZOSIN 1 MG CAPSULE PO (21:03)
[2018-06-07] MEDS: TERAZOSIN 5 MG CAPSULE PO (21:03)
[2018-06-08] VITALS: O2SAT 94
[2018-06-08] MEDS: GUAIFENESIN/DM 200/20 MG/10 ML UDC PO ×2 (00:03→08:14)
[2018-06-08 02:00] VITALS: BP 112/66; PULSE 74; RESP 18; TEMP 36.4; O2SAT 95
--- NOTE | 2018-06-08 03:47 | PC.NURSE ---
Pt. transferred form ICU room 102 to room 208 in Acute Care. Calmed & co-operative with staff. But needing re-direction & repeated command to let her lay in bed. Picking on her IV tubing & trying to pull her catheter tubing. She's trying yo sleep now, will monitor.
[2018-06-08] MEDS: OXYCODONE IR 5 MG TABLET PO ×3 (03:58→12:34)
[2018-06-08] MEDS: ALBUTEROL/IPRATROPIUM 3 ML AMPUL INH (05:54)
[2018-06-08 06:00] VITALS: PULSE 72; RESP 20; O2SAT 94
[2018-06-08 07:30] VITALS: BP 116/65; PULSE 75; RESP 16; TEMP 36.6; O2SAT 95
[2018-06-08 08:13] VITALS: PULSE 60
[2018-06-08] MEDS: BISOPROLOL 5 MG TABLET PO (08:13)
[2018-06-08] MEDS: DIGOXIN 0.125 MG TABLET PO (08:13)
[2018-06-08] MEDS: ENOXAPARIN 40 MG/0.4 ML SYRINGE SUBCUT (08:13)
[2018-06-08] MEDS: FUROSEMIDE 40 MG TABLET 80 MG PO (08:13)
[2018-06-08] MEDS: CHOLECALCIFEROL (VITAMIN D3) 1,000 UNIT TABLET 2000 UNIT PO (08:13)
[2018-06-08] MEDS: METFORMIN 850 MG TABLET PO (08:13)
[2018-06-08] MEDS: CITALOPRAM 20 MG TABLET 40 MG PO (08:13)
[2018-06-08] MEDS: predniSONE 20 MG TABLET 40 MG PO (08:14)
[2018-06-08] MEDS: SPIRONOLACTONE 25 MG TABLET PO (08:14)
[2018-06-08] MEDS: POTASSIUM CHLORIDE 20 MEQ TAB PO (08:14)
[2018-06-08] MEDS: ASPIRIN EC 81 MG TABLET PO (08:14)
[2018-06-08] MEDS: levoFLOXacin 250 MG TABLET 750 MG PO (08:15)
[2018-06-08] MEDS: PANTOPRAZOLE 40 MG VIAL IV (08:15)
[2018-06-08] MEDS: LORATADINE 10 MG TABLET PO (08:15)
[2018-06-08] MEDS: INSULIN ASPART 100 UNIT/ML INSULN PEN SUBCUT (08:16)
[2018-06-08] MEDS: SODIUM CHLORIDE 0.9% FLUSH 10 ML IV (08:16)
[2018-06-08 09:06] LABS: Add Manual Diff / Slide Review NO; Basophils Percent Auto 0.3 % (0-2); Eosinophils Percent Auto 1.3 % (2-4); Hematocrit 36.7 % (41-53); Hemoglobin 12.5 g/dL (13.5-17.5); Lymphocytes Percent Auto 19.3 % (25-40); Mean Corpuscular HGB Conc 34.1 % (30-36); Mean Corpuscular Hemoglobin 30.7 PG (26-34); Mean Corpuscular Volume 90.1 fL (80-100); Monocytes Percent Auto 6.5 % (3-14); Neutrophils Absolute Auto 7300 /uL (3000-5900); Neutrophils Percent Auto 72.6 % (50-75); Platelet Count 178 X10^3/uL (150-400); Red Blood Cell Count 4.08 X10^6/uL (4.5-5.9); Red Cell Distribution Width 13.5 % (11.6-14.8)
[2018-06-08 09:21] LABS: BUN Creatinine Ratio 30.9 (6-22); Blood Urea Nitrogen 34 mg/dL (9-20); Calcium 8.9 mg/dL (8.4-10.2); Carbon Dioxide 39 mmol/L (22-32); Chloride 91 mmol/L (98-107); Estimated Glomerular Filt Rate > 60.0 mL/min (>60); Glucose 180 mg/dL (80-110); HEMOLYSIS < 15 (0-50); Potassium 4.3 mmol/L (3.4-5.1); Sodium 135 mmol/L (137-145)
[2018-06-08] MEDS: LISINOPRIL 5 MG TABLET 2.5 MG PO (09:28)
--- NOTE | 2018-06-08 11:01 | PM.DS.1 ---
History of Present Illness Date Patient Seen: 06/08/18 Time Patient Seen: 09:00 Chief complaint: FELL HIT HEAD, PIN FELL OUT OF RT LEG, HAD SURGERY Narrative: This is a 67-year-old male presenting with is acute on chronic hypoxic and hypercapnic respiratory failure secondary to COPD/CHF exacerbation. No events overnight, chronic complains of the pain in the R hip area. Discharge Providers Date of admission: 06/03/18 13:29 Primary care physician: Bobo Aden MD Consults: 06/03/18 12:35 Consult to Respiratory Therapy Evaluate & Treat Comment: Physician Instructions: Evaluate and treat 06/04/18 14:49 Consult to Occupational Therapy Evaluate & Treat Comment: weakness Physician Instructions: Evaluate and treat Consult to Physical Therapy Evaluate & Treat Comment: weakness Physician Instructions: Evaluate and Treat Discharge provider: Lucia Spivey MD Summary Discharge Diagnosis: 1. Acute on chronic hypoxemic and hypercapnic respiratory failure: Multifactorial, resolving. Secondary to COPD/CHF exacerbation. Continue to treat underlying medical problems. 2. COPD/emphysema with exacerbation: Resolving . Continue breathing treatments, oral expectorant, steroids per tapering scheme, po abx , symptomatic and supportive care. 3. Congestive heart failure, acute on chronic, diastolic: Resolving, continue current diuresis with oral Lasix 4. 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 Patient was declining insulin therapy citing inability to manage insulin therapy on his own upon discharge. Per patient request, starting therapy with oral hypoglycemics, even though it may not result in required control. 5. History of femoral bone fracture requiring ORIF: Current imaging with stable bent appearance of proximal intramedullary femoral itzel. Stable right femoral alignment. Patient is scheduled for evaluation/consultation at [facility] next week, and possible surgical intervention. 6. Deconditioning/debility: Multifactorial, pending placement to rehab consult at [facility] in Hospital Course: This is a 67-year-old male with complex medical problems presenting with COPD/CHF exacerbation and chronic pain/deformity of the right hip/femoral area post prior ORIF with intramedullary femoral itzel. His present clinical symptoms improved on breathing treatments, oral expectorants, steroids, empiric antibiotic therapy, diuretics at that patient dose, symptomatic and supportive care. An appointment was set up to be seen by Orthopedic surgery team at [facility] next week. In the interim patient is getting discharged for rehab to [facility] . Status at Discharge Functional status at discharge: bed bound Overall status at discharge: patient is not back to baseline Time Spent with Patient Greater than 30 minutes Exam Vital Signs (past 8 hours): - 06/08/18 06:00 06/08/18 07:30 06/08/18 08:13 Temperature 97.9 F Pulse Rate 72 75 60 Respiratory Rate 20 16 Blood Pressure 116/65 Pulse Oximetry 94 95 Fraction of Inspired Oxygen 25 SaO2/FiO2 Ratio 396 Oxygen Delivery Method Room Air Oxygen Flow Rate 0 Objective Labs Result Diagrams: 06/08/18 08:45 06/08/18 08:45 Labs: Laboratory Results - last 24 hr 06/08/18 06/08/18 08:45 08:45 WBC 10.0 RBC 4.08 L Hgb 12.5 L Hct 36.7 L MCV 90.1 MCH 30.7 MCHC 34.1 RDW 13.5 Plt Count 178 Neut % (Auto) 72.6 Lymph % (Auto) 19.3 L [place] % (Auto) 6.5 Eos % (Auto) 1.3 L Baso % (Auto) 0.3 Neut # (Auto) 7300 H Sodium 135 L Potassium 4.3 Chloride 91 L Carbon Dioxide 39 H BUN 34 H Creatinine 1.10 Estimated GFR > 60.0 BUN/Creatinine Ratio 30.9 H Glucose 180 H D Calcium 8.9 Discharge Plan Discharge Plan Transfer to: [facility] Transportation: Ambulance Discharge comment: Pending evaluation at [facility] this coming week on I certify the postop hospital shelter care is medically necessary on a continuing basis for any conditions for which he/ she received care during this hospitalization.: Yes The receiving facility has agreed to accept transfer and provide medical treatment.: Yes Discharge Med Rec/Prescriptions Discharge Orders: Discharge (Order); Ordered 06/08/18 Ordered By: Lucia Spivey Discharge Health Status Multidrug resistant organism: No MDRO Provider Discharge Instructions Diet: Carb-consistent/Diabetic Liquid consistency: Normal/Thin Food texture: Soft Activity: NWB on the R LE at this time [facility] Reason for rehabilitation: Recovery r/t decondition and Other Rehab type: Physical therapy and Occupational therapy Discharge Data Primary Care Provider: Bobo Aden V Attending Provider: Paige Jain Admit Date/Time: 06/03/18 13:29
[2018-06-08 11:14] VITALS: O2SAT 95
--- NOTE | 2018-06-08 12:17 | CM.DPC ---
DCP Cont: Patient is to be discharged to day at [facility]. Patient is aware of plan, signed updated IMM. Updated Diann at [facility], plan is to pickle maker patient today at 1:00pm to pick patient up. Daughter, Jo, is also aware. Have med list printed out. Hospitalist signed med list and prescriptions done. Faxed [facility], Discharge Summary, and signed med list to [facility]. P: Patient is to be discharged to [facility] today, transportation provided by facility. Corinne Merchant RN/Hospital Orderly
--- NOTE | 2018-06-08 14:04 | PC.NURSE ---
pt states pain controlled with oxycodone q4hr. up with SBA and FWW to BS or to chair from bed. BS better controlled this AM, was 145 before breakfast. D/c to [facility] around 1320. report called prior to Diann. left in w/c with all his belongings.
== END 2018-06-08 13:20 | DRG 189 ==
LOC: ED 12:34 → ICU 13:30 → AC 06-06 06:04
PROVIDERS: Hospitalist; Admitting Provider Internal Medicine; Emergency Provider Nurse Practitioner Family; PCP Internal Medicine; Visit Provider Internal Medicine
DX: J96.21 Acute and chronic respiratory failure with hypoxia (principal); I50.33 Acute on chronic diastolic (congestive) heart failure; J44.1 Chronic obstructive pulmonary disease with (acute) exacerbation; T84.114A Breakdown (mechanical) of internal fixation device of right femur, initial encounter; J96.22 Acute and chronic respiratory failure with hypercapnia; Z95.810 Presence of automatic (implantable) cardiac defibrillator; E09.9 Drug or chemical induced diabetes mellitus without complications; T38.0X5A Adverse effect of glucocorticoids and synthetic analogues, initial encounter; Z87.891 Personal history of nicotine dependence; F41.9 Anxiety disorder, unspecified; Z95.2 Presence of prosthetic heart valve
CPT/HCPCS: 36415; 36591; 36592; 36600; 70450; 70486; 71045; 73552; 80048; 80053; 80162; 81003; 82550; 82553; 82805; 82947; 82962; 83036; 83735; 83880; 84484; 85025; 85610; 87797; 93005; 93010; 94150; 94640; 94660; 94667; 94668; 94760; 96374; 96375; 97110; 97161; 97166; 97530; 99283; 99285; C9113; J1650; J1956; J2060; J2920; J2930; J7613

== ENCOUNTER → 2018-06-23 08:16 | Outpatient (REF) | payer SELFPAY ==
[2018-06-03 14:09] VITALS: BMI 34.6
[2018-06-04 00:35] VITALS: PULSE 90; RESP 27; O2SAT 98
[2018-06-23 08:40] LABS: Add Manual Diff / Slide Review NO; Basophils Percent Auto 0.6 % (0-2); Eosinophils Percent Auto 1.6 % (2-4); Hematocrit 25.8 % (41-53); Hemoglobin 8.6 g/dL (13.5-17.5); Lymphocytes Percent Auto 13.2 % (25-40); Mean Corpuscular HGB Conc 33.3 % (30-36); Mean Corpuscular Hemoglobin 30.4 PG (26-34); Mean Corpuscular Volume 91.3 fL (80-100); Monocytes Percent Auto 6.1 % (3-14); Neutrophils Absolute Auto 6800 /uL (3000-5900); Neutrophils Percent Auto 78.5 % (50-75); Platelet Count 254 X10^3/uL (150-400); Red Blood Cell Count 2.83 X10^6/uL (4.5-5.9); Red Cell Distribution Width 13.9 % (11.6-14.8); White Blood Cell Count 8.6 X10^3/uL (4.5-11.0)
[2018-06-23 09:17] LABS: Blood Urea Nitrogen 16 mg/dL (9-20); Calcium 8.6 mg/dL (8.4-10.2); Carbon Dioxide 30 mmol/L (22-32); Chloride 98 mmol/L (98-107); Estimated Glomerular Filt Rate > 60.0 mL/min (>60); Glucose 117 mg/dL (80-110); HEMOLYSIS < 15 (0-50); Potassium 4.7 mmol/L (3.4-5.1); Sodium 135 mmol/L (137-145)
== END ==
LOC: LAB 08:16
PROVIDERS: PCP Internal Medicine; Visit Provider Internal Medicine
DX: D55.1 Anemia due to other disorders of glutathione metabolism (principal)
CPT/HCPCS: 80048; 85025

== ENCOUNTER 2018-12-24 13:45 | Emergency (ER) | payer MEDICARE, SELFPAY ==
[2018-06-03 14:09] VITALS: BMI 34.6
[2018-06-04 00:35] VITALS: PULSE 90; RESP 27; O2SAT 98
[2018-12-24] VITALS (7 sets, daily range): BP systolic 99–124; BP diastolic 49–60; PULSE 66–90; RESP 18–26; TEMP 37.2; O2SAT 89–96
--- NOTE | 2018-12-24 14:02 | ED.SOB ---
HPI - SOB/Dyspnea General Chief Complaint: Shortness of Breath/Dyspnea Stated Complaint: States the lungs Time Seen by Provider: 12/24/18 14:02 Source: patient Mode of arrival: ambulatory Limitations: no limitations History of Present Illness Patient is a 68-year-old male. Has a history of COPD. Is on occasional oxygen at home. Does use nebulizers at home. Also history history of congestive heart failure. Last weekend he was switched from Lasix to a torsemide. He was taking this twice a day. Yesterday he was seen in his preservationist's office and was told to take 40 mg in the morning and 20 mg at night. The home health nurse came by today and thought that he was retaining more water. He was instructed to come to the emergency department for evaluation. Patient states that he is at his baseline respiratory status. He does report bilateral lower extremity swelling. States that he has not urinated all that much despite the diuretics. Related Data Home Medications Medication Instructions Recorded Confirmed spironolactone 12.5 mg PO DAILY #0 03/04/11 12/24/18 aspirin 81 mg PO DAILY #0 07/26/11 12/24/18 potassium chloride 20 meq PO DAILY #0 07/26/11 12/24/18 albuterol sulfate 2 puff INHALATION Q6H PRN 06/03/18 12/24/18 bisoprolol fumarate 5 mg PO DAILY 06/03/18 12/24/18 budesonide 0.25 mg INHALATION Q12H 06/03/18 12/24/18 calcium carbonate 1 tab PO DAILY 06/03/18 12/24/18 citalopram 40 mg PO DAILY 06/03/18 12/24/18 colchicine See Rx Instructions .ROUTE 06/03/18 12/24/18 .COMPLEX PRN digoxin 1 tab PO DAILY 06/03/18 12/24/18 ipratropium bromide 2.5 ml INHALATION QID PRN 06/03/18 12/24/18 ipratropium-albuterol 3 ml INHALATION Q6H 06/03/18 12/24/18 oxycodone 5 mg PO Q6H PRN 06/03/18 12/24/18 pravastatin 40 mg PO DAILY 06/03/18 12/24/18 allopurinol 100 mg PO DAILY 12/24/18 12/24/18 ascorbic acid (vitamin C) 1,500 mg PO DAILY 12/24/18 12/24/18 calcium citrate-vitamin D2 1 tab PO DAILY 12/24/18 12/24/18 codeine-guaifenesin [Cheratussin 10 ml PO Q4H PRN 12/24/18 12/24/18 AC] diazepam 5 mg PO BID PRN 12/24/18 12/24/18 indomethacin 50 mg PO PRN PRN 12/24/18 12/24/18 lisinopril 5 mg PO DAILY 12/24/18 12/24/18 loratadine 10 mg PO DAILY 12/24/18 12/24/18 metformin 500 mg PO BID 12/24/18 12/24/18 naproxen 500 mg PO DAILY PRN 12/24/18 12/24/18 nystatin 5 ml BUCCAL TID PRN 12/24/18 12/24/18 prednisone 15 mg PO PRN PRN 12/24/18 12/24/18 terazosin 4 mg PO BEDTIME 12/24/18 12/24/18 torsemide 20 mg PO QPM 12/24/18 12/24/18 torsemide 40 mg PO QAM 12/24/18 12/24/18 Previous Rx's Medication Instructions Recorded prednisone 20 mg PO DAILY #35 tab 12/24/18 Allergies Allergy/AdvReac Type Severity Reaction Status Date / Time No Known Drug Allergies Allergy Verified 06/03/18 14:31 Review of Systems Constitutional Denies fever(s) Cardiovascular Denies chest pain, Reports leg edema and Reports dyspnea (This is not new) Respiratory Reports dyspnea (This is not new) Gastrointestinal Gastrointestinal: Denies abdominal pain, Denies nausea and Denies vomiting Genitourinary Comments: Little urine output despite the diuretics Musculoskeletal Comments: Lower extremity edema Integumentary/Breasts Denies rash Neurologic Denies behavioral changes Psychiatric Denies behavioral changes Hematologic/Lymphatic Denies easy bleeding and Denies easy bruising PFSH Medical History COPD (chronic obstructive pulmonary disease) (Acute) CHF (congestive heart failure) (Acute) Cardiac defibrillator in place (Acute) Prediabetes (Acute) Surgical History S/P TAVR (transcatheter aortic valve replacement) (Acute) Social History household members: family Smoking Status: Former smoker Social History household members: family Smoking Status: Former smoker Exam Initial Vital Signs Initial Vital Signs: Vital Signs Temperature 99.0 F 12/24/18 13:59 Pulse Rate 90 12/24/18 13:59 Respiratory Rate 26 H 12/24/18 13:59 Blood Pressure 111/60 12/24/18 13:59 Pulse Oximetry 89 L 12/24/18 13:59 Const General: cooperative and No acute distress Orientation: alert, awake and oriented x3 HENMT Head: normal to inspection and normocephalic Resp Effort & Inspection: cough, no retractions and tachypneic Auscultation: rhonchi and wheezes Cardio Rate: regular rate Rhythm: other (Paced rhythm) Pulses: radial pulses present GI Palpation: soft, No firm and No tender Skin Lesions: no lesions Rashes: no rashes Neuro General: alert and awake Extrem General: capillary refill normal, edema and pedal edema Psych Appearance: grossly normal and well kempt Course Orders Ordered: ED Orders 12/24/18 14:00 Digoxin Stat 12/24/18 14:04 XR chest 1V Stat EKG-12 Lead Stat RT Consult Eval and Treat Now 12/24/18 14:06 B Type Natriuretic Peptide Stat Complete Blood Count AUTO DIFF Stat Comprehensive Metabolic Panel Stat Lipase Stat Troponin I Stat Discontinued Medications Albuterol/Ipratropium (Duoneb) 3 ml INH NOW ONE Stop: 12/24/18 14:03 Last Admin: 12/24/18 14:16 Dose: 3 ml Furosemide (Lasix) 40 mg IV NOW ONE Stop: 12/24/18 14:43 Last Admin: 12/24/18 15:02 Dose: 40 mg Methylprednisolone (Solu-Medrol 125 Mg Vial) 125 mg IV NOW ONE Stop: 12/24/18 14:03 Last Admin: 12/24/18 14:14 Dose: 125 mg Vital Signs - 8 hr 12/24/18 13:59 12/24/18 14:30 12/24/18 15:00 Temperature 99.0 F Pulse Rate 90 76 80 Respiratory Rate 26 H 24 18 Blood Pressure 111/60 Blood Pressure [Right Arm] 99/57 L Pulse Oximetry 89 L 93 94 12/24/18 15:10 12/24/18 15:30 12/24/18 16:00 Temperature 99.0 F Pulse Rate 80 79 66 Respiratory Rate 18 21 21 Blood Pressure 111/60 Blood Pressure [Right Arm] 114/57 L 112/49 L Pulse Oximetry 94 96 94 12/24/18 16:30 Temperature Pulse Rate 80 Respiratory Rate 18 Blood Pressure Blood Pressure [Right Arm] 124/52 L Pulse Oximetry 93 MDM - SOB/Dyspnea Lab Data Attestation: I reviewed the patient's lab results. Result diagrams: 12/24/18 14:06 12/24/18 14:06 Lab Results 12/24/18 12/24/18 12/24/18 Range/Units 14:00 14:06 14:06 WBC 7.7 (4.5-11.0) X10^3/uL RBC 3.74 L (4.5-5.9) X10^6/uL Hgb 11.6 L (13.5-17.5) g/dL Hct 34.6 L (41-53) % MCV 92.5 (80-100) fL MCH 31.0 (26-34) PG MCHC 33.5 (30-36) % RDW 14.7 (11.6-14.8) % Plt Count 172 (150-400) X10^3/uL Neut % (Auto) 74.1 (50-75) % Lymph % (Auto) 14.7 L (25-40) % Johnson % (Auto) 7.9 (3-14) % Eos % (Auto) 2.7 (2-4) % Baso % (Auto) 0.6 (0-2) % Neut # (Auto) 5700 (5519-7513) /uL Lymph # (Auto) 1100 (8722-8212) /uL Johnson # (Auto) 600 (0-900) /uL Eos # (Auto) 200 (0-450) /uL Baso # (Auto) 0 (0-100) /uL Sodium 135 L (137-145) mmol/L Potassium 4.8 (3.4-5.1) mmol/L Chloride 94 L (98-107) mmol/L Carbon Dioxide 30 (22-32) mmol/L BUN 38 H (9-20) mg/dL Creatinine 1.60 H (0.66-1.25) mg/dL Estimated GFR 43.2 L (>60) mL/min BUN/Creatinine Ratio 23.8 H (6-22) Glucose 157 H (80-110) mg/dL Calcium 9.1 (8.4-10.2) mg/dL Total Bilirubin 0.4 (0.2-1.3) mg/dL AST 25 (17-59) IU/L ALT 31 (21-72) IU/L Alkaline Phosphatase 77 (38-126) U/L Troponin I 0.056 H (0.01-0.034) ng/mL B-Natriuretic Peptide 223 H (<100) Total Protein 6.9 (6.3-8.2) g/dL Albumin 4.3 (3.5-5.0) g/dL Globulin 2.6 (1.7-4.1) g/dL Albumin/Globulin Ratio 1.7 (1.0-2.8) Lipase 367 H (23-300) U/L Digoxin 0.6 L (0.8-2.0) ng/mL Imaging Data Chest x-ray: Radiologist's impression: [address] [address] XRay Report Signed Patient: Mandy Rucker#: [id number] : 1950Acct:[id number] Age/Sex: 68 / MDate of Service: 12/24/18 Loc: ED Accession Number: [id number] Procedure: XR chest 1V Ordering Provider: Meir Sharpe D.O. PROCEDURE: XR CHEST 1V INDICATIONS: shortness of breath TECHNIQUE: One view of the chest was acquired. COMPARISON: [facility], , XR CHEST 1V, 06/03/2018, 10:26. [facility], , XR CHEST 1V, 03/06/2018, 16:53. FINDINGS: Surgical changes and devices: Cardiac pacemaking/defibrillation device and leads appear normal. Expandable stent aortic valve annulus prosthesis is again seen.. Lungs and pleura: Lungs are slightly edematous. No pleural effusions or pneumothorax. Mediastinum: Mediastinal contours appear normal. Heart size is at the upper limits of normal. Bones and chest wall: No suspicious bony lesions. Overlying soft tissues appear unremarkable. IMPRESSION: Slight pulmonary edema, otherwise stable over time. Dictated by: Xavi Pierre M.D. on 12/24/2018 at 14:56 Approved by: Xavi Pierre M.D. on 12/24/2018 at 14:57 ECG Data Attestation: I personally reviewed and interpreted this ECG as follows: Prior ECG tracings: not available for review Interpretation: Ventricular paced Rate is [address]-T changes MDM Narrative Medical decision making narrative: Patient received a nebulizer treatment here in the emergency department after which he states he is at baseline respiratory status rae. He does have bilateral lower extremity edema. He was given Lasix here in the emergency department but only urinate a small amount. I discussed the case with [facility] who was able to look up his last echocardiogram. He does have nonischemic cardiomyopathy. Does have the pacemaker. Has an ejection fraction of 35%. Chest x-ray does show edema. His BNP is only slightly elevated. His weight yesterday in the office was 101 kg. Today is the same. I feel that his symptoms are related to both COPD and his CHF. I do not feel that he needs admitted to the hospital. Will have him increase his diuretic to 2 times a day. Was given steroids for his COPD. Will have him contact his preservationist and primary care doctor tomorrow for follow-up. He does have a follow-up with his preservationist on Saturday. He was given return precautions. He expressed understanding and agreement plan. Discharge Plan Departure Interventions: ED Discharge Assessment Last Done: 12/24/18 17:12 Instructions: Chronic Obstructive Pulmonary Disease, DI for Heart Failure Activity Restrictions/Additional Instructions: Take the steroids as directed. Contact your preservationist tomorrow to see if they have any other recommendations. Keep your follow-up on Saturday. Return to the emergency department for any new or worsening symptoms Prescriptions: New prednisone 20 mg tablet 20 mg PO DAILY Qty: 35 RF: 0 No Action spironolactone 25 MG tablet 12.5 mg PO DAILY Qty: 0 RF: 0 aspirin 81 mg Tablet,Delayed Release (Dr/Ec) 81 mg PO DAILY Qty: 0 RF: 0 potassium chloride 20 mEq Tablet Extended Release 20 meq PO DAILY Qty: 0 RF: 0 allopurinol 100 mg tablet 100 mg PO DAILY RF: 0 diazepam 5 mg tablet 5 mg PO BID PRN (Reason: Anxiety) RF: 0 metformin 500 mg tablet 500 mg PO BID RF: 0 prednisone 10 mg tablet 15 mg PO PRN PRN (Reason: as directed) RF: 0 torsemide 20 mg tablet 40 mg PO QAM RF: 0 lisinopril 5 mg tablet 5 mg PO DAILY RF: 0 terazosin 2 MG capsule 4 mg PO BEDTIME RF: 0 nystatin 100,000 unit/mL Suspension 5 ml BUCCAL TID PRN (Reason: as directed) RF: 0 torsemide 20 mg Tablet 20 mg PO QPM RF: 0 naproxen 500 mg Tablet,Delayed Release (Dr/Ec) 500 mg PO DAILY PRN (Reason: pain) RF: 0 indomethacin 50 mg Capsule 50 mg PO PRN PRN (Reason: Pain, Mild) RF: 0 codeine-guaifenesin [Cheratussin AC] 10-100 mg/5 mL Liquid 10 ml PO Q4H PRN (Reason: Cough) RF: 0 calcium citrate-vitamin D2 1,500-200 mg-unit Tablet 1 tab PO DAILY RF: 0 ascorbic acid (vitamin C) 1,500 mg Tablet Extended Release 1,500 mg PO DAILY RF: 0 loratadine 10 mg Tablet 10 mg PO DAILY RF: 0 citalopram 40 mg tablet 40 mg PO DAILY RF: 0 pravastatin 40 mg tablet 40 mg PO DAILY RF: 0 bisoprolol fumarate 10 mg tablet 5 mg PO DAILY RF: 0 digoxin 125 mcg tablet 1 tab PO DAILY RF: 0 albuterol sulfate 90 mcg/actuation HFA aerosol inhaler 2 puff Inhalation Q6H PRN (Reason: Shortness Of Breath) RF: 0 oxycodone 5 mg tablet 5 mg PO Q6H PRN (Reason: Pain, Moderate) RF: 0 ipratropium-albuterol 0.5 mg-3 mg(2.5 mg base)/3 mL Solution For Nebulization 3 ml Inhalation Q6H RF: 0 calcium carbonate 600 mg calcium (1,500 mg) Tablet 1 tab PO DAILY RF: 0 budesonide 0.25 mg/2 mL Suspension For Nebulization 0.25 mg INHALATION Q12H RF: 0 colchicine 0.6 mg tablet See Rx Instructions .ROUTE .COMPLEX PRN (Reason: Gout) RF: 0 ipratropium bromide 0.02 % Solution 2.5 ml Inhalation QID PRN (Reason: Wheezing) RF: 0 Referrals: Bobo Aden MD [Primary Care Provider] -
[2018-12-24] MEDS: methylPREDNISolone 125 MG/2 ML VIAL IV (14:14)
[2018-12-24] MEDS: ALBUTEROL/IPRATROPIUM 3 ML AMPUL INH (14:16)
[2018-12-24 14:19] LABS: Add Manual Diff / Slide Review NO; Basophils Absolute Auto 0 /uL (0-100); Basophils Percent Auto 0.6 % (0-2); Eosinophils Absolute Auto 200 /uL (0-450); Eosinophils Percent Auto 2.7 % (2-4); Hematocrit 34.6 % (41-53); Hemoglobin 11.6 g/dL (13.5-17.5); Lymphocytes Absolute Auto 1100 /uL (1100-4500); Lymphocytes Percent Auto 14.7 % (25-40); Mean Corpuscular HGB Conc 33.5 % (30-36); Mean Corpuscular Volume 92.5 fL (80-100); Monocytes Absolute Auto 600 /uL (0-900); Monocytes Percent Auto 7.9 % (3-14); Neutrophils Absolute Auto 5700 /uL (1500-7000); Neutrophils Percent Auto 74.1 % (50-75); Platelet Count 172 X10^3/uL (150-400); Red Blood Cell Count 3.74 X10^6/uL (4.5-5.9); Red Cell Distribution Width 14.7 % (11.6-14.8); White Blood Cell Count 7.7 X10^3/uL (4.5-11.0)
[2018-12-24 14:29] LABS: Alanine Aminotransferase 31 IU/L (21-72); Albumin 4.3 g/dL (3.5-5.0); Albumin Globulin Ratio 1.7 (1.0-2.8); Alkaline Phosphatase 77 U/L (38-126); Aspartate Aminotransferase 25 IU/L (17-59); BUN Creatinine Ratio 23.8 (6-22); Bilirubin Total 0.4 mg/dL (0.2-1.3); Blood Urea Nitrogen 38 mg/dL (9-20); Calcium 9.1 mg/dL (8.4-10.2); Carbon Dioxide 30 mmol/L (22-32); Chloride 94 mmol/L (98-107); Estimated Glomerular Filt Rate 43.2 mL/min (>60); Globulin 2.6 g/dL (1.7-4.1); Glucose 157 mg/dL (80-110); HEMOLYSIS 31 (0-50); Lipase 367 U/L (23-300); Potassium 4.8 mmol/L (3.4-5.1); Sodium 135 mmol/L (137-145); Total Protein 6.9 g/dL (6.3-8.2)
[2018-12-24 14:37] LABS: B Type Natriuretic Peptide 223 (<100)
[2018-12-24 14:41] LABS: Troponin I 0.056 ng/mL (0.01-0.034)
[2018-12-24] MEDS: FUROSEMIDE 40 MG/4 ML VIAL IV (15:02)
[2018-12-24 15:38] LABS: Digoxin 0.6 ng/mL (0.8-2.0)
== END 2018-12-24 17:15 | disposition home or self-care (01) ==
PROVIDERS: Emergency Provider Emergency Medicine; PCP Internal Medicine
DX: I50.9 Heart failure, unspecified (principal); J44.9 Chronic obstructive pulmonary disease, unspecified
CPT/HCPCS: 36591; 71045; 80053; 80162; 83690; 83880; 84484; 85025; 93005; 93010; 94640; 96374; 96375; 99283; 99285; J1940; J2930

== ENCOUNTER 2019-03-12 19:22 | Emergency (ER) | payer MEDICARE, SELFPAY ==
[2018-06-03 14:09] VITALS: BMI 34.6
[2018-06-04 00:35] VITALS: PULSE 90; RESP 27; O2SAT 98
[2019-03-12] VITALS (8 sets, daily range): BP systolic 121–131; BP diastolic 59–71; PULSE 99–123; RESP 22–30; TEMP 37.6; O2SAT 87–94
--- NOTE | 2019-03-12 20:07 | ED_ITS ---
HPI - SOB/Dyspnea General Chief Complaint: Shortness of Breath/Dyspnea Stated Complaint: DIFFICULTY BREATHING Time Seen by Provider: 03/12/19 19:41 Source: patient Mode of arrival: EMS Limitations: no limitations History of Present Illness The patient presents with dyspnea. He developed sore throat about 4 days ago. He has since then developed productive cough. He has no associated fever or chills. He denies chest pain. He has an increasing peripheral edema. He has a pacemaker in. He has oxygen dependent COPD, and has been managed for CHF. His use of oxygen is intermittent, but he is taking it today. He is using his inhalers at home. He had right hip surgery January 2019, he is asking to avoid steroids if possible. He is having no associated abdominal discomfort. He has normal urine output. Related Data Home Medications Medication Instructions Recorded Confirmed spironolactone 12.5 mg PO DAILY #0 03/04/11 12/24/18 aspirin 81 mg PO DAILY #0 07/26/11 12/24/18 potassium chloride 20 meq PO DAILY #0 07/26/11 12/24/18 albuterol sulfate 2 puff INHALATION Q6H PRN 06/03/18 12/24/18 bisoprolol fumarate 5 mg PO DAILY 06/03/18 12/24/18 budesonide 0.25 mg INHALATION Q12H 06/03/18 12/24/18 calcium carbonate 1 tab PO DAILY 06/03/18 12/24/18 citalopram 40 mg PO DAILY 06/03/18 12/24/18 colchicine See Rx Instructions .ROUTE 06/03/18 12/24/18 .COMPLEX PRN digoxin 1 tab PO DAILY 06/03/18 12/24/18 ipratropium bromide 2.5 ml INHALATION QID PRN 06/03/18 12/24/18 ipratropium-albuterol 3 ml INHALATION Q6H 06/03/18 12/24/18 oxycodone 5 mg PO Q6H PRN 06/03/18 12/24/18 pravastatin 40 mg PO DAILY 06/03/18 12/24/18 allopurinol 100 mg PO DAILY 12/24/18 12/24/18 ascorbic acid (vitamin C) 1,500 mg PO DAILY 12/24/18 12/24/18 calcium citrate-vitamin D2 1 tab PO DAILY 12/24/18 12/24/18 codeine-guaifenesin [Cheratussin 10 ml PO Q4H PRN 12/24/18 12/24/18 AC] diazepam 5 mg PO BID PRN 12/24/18 12/24/18 indomethacin 50 mg PO PRN PRN 12/24/18 12/24/18 lisinopril 5 mg PO DAILY 12/24/18 12/24/18 loratadine 10 mg PO DAILY 12/24/18 12/24/18 metformin 500 mg PO BID 12/24/18 12/24/18 naproxen 500 mg PO DAILY PRN 12/24/18 12/24/18 nystatin 5 ml BUCCAL TID PRN 12/24/18 12/24/18 prednisone 15 mg PO PRN PRN 12/24/18 12/24/18 terazosin 4 mg PO BEDTIME 12/24/18 12/24/18 torsemide 20 mg PO QPM 12/24/18 12/24/18 torsemide 40 mg PO QAM 12/24/18 12/24/18 Previous Rx's Medication Instructions Recorded prednisone 20 mg PO DAILY #35 tab 12/24/18 azithromycin [Zithromax] 250 mg PO DAILY 4 Days tab 03/12/19 Allergies Allergy/AdvReac Type Severity Reaction Status Date / Time No Known Drug Allergies Allergy Verified 03/12/19 19:38 Review of Systems Review of Systems ROS Unobtainable: All systems reviewed & are unremarkable except as noted in HPI and below Constitutional Denies chills, Denies fever(s), Denies lethargy and Reports weakness Eyes Denies eye discharge and Denies irritation ENT Ears, Nose, Mouth, and Throat: Denies change in voice, Denies dizziness, Denies neck pain and Denies sore throat Cardiovascular Denies chest pain, Denies irregular heart rhythm, Denies lightheadedness, Denies palpitations and Denies dyspnea Respiratory Denies cough, Denies dyspnea and Denies wheezing Gastrointestinal Gastrointestinal: Denies abdominal pain, Reports change in bowel habits, Denies diarrhea, Denies nausea and Denies vomiting Musculoskeletal Denies back pain and Denies neck pain Integumentary/Breasts Denies erythema, Denies rash and Denies wounds Neurologic Denies behavioral changes, Denies confusion, Denies dizziness and Reports weakness Psychiatric Denies anxiety, Denies behavioral changes and Denies confusion Endocrine Denies palpitations Hematologic/Lymphatic Denies easy bleeding and Denies easy bruising Allergic/Immunologic Denies wheezing [facility] Medical History (Updated 03/12/19 @ 23:12 by Juan Emery MD) COPD (chronic obstructive pulmonary disease) (Acute) CHF (congestive heart failure) (Acute) Cardiac defibrillator in place (Acute) Prediabetes (Acute) Right femoral fracture (Acute) Surgical History S/P TAVR (transcatheter aortic valve replacement) (Acute) Social History household members: family Smoking Status: Former smoker Social History household members: family Smoking Status: Former smoker Exam Initial Vital Signs Initial Vital Signs: Vital Signs Temperature 99.7 F H 03/12/19 19:38 Pulse Rate 123 H 03/12/19 19:38 Respiratory Rate 23 03/12/19 19:38 Blood Pressure 126/61 03/12/19 19:38 Pulse Oximetry 87 L 03/12/19 19:38 Const General: cooperative and well developed Nutritional Appearance: well nourished Orientation: alert, awake, oriented x3 and not confused [facility] Head: normocephalic and atraumatic Nose: external nose normal Mouth: moist mucous membranes Throat: tonsils normal and uvula midline Eyes General: appearance normal, both eyes and all related structures Eyelids: eyelids normal Conjunctivae: conjunctivae normal Sclera: sclerae normal Pupils: PERRL EOM: EOM intact bilaterally Neck Neck: No JVD Chest Chest: normal inspection of the chest Resp Effort & Inspection: normal respiratory effort, able to speak in complete sentences, no respiratory distress and no use of accessory muscles Auscultation: clear to auscultation bilaterally, no rales, no rhonchi and wheezes scattered wheezes Cardio Rate: regular rate Rhythm: regular rhythm Heart Sounds: no click, no gallops, no murmurs and no rubs Pulses: normal peripheral pulses GI Inspection: non-distended Palpation: soft, no hepatosplenomegaly, No guarding, No pulsatile mass and No tender Auscultation: normal bowel sounds Back/Spine/Pelvis Back: No CVA tenderness Skin General: no rashes or lesions noted and No petechiae Neuro General: alert, oriented x3, gait normal and no focal motor deficits Speech: speech normal Extrem General: full ROM, no calf tenderness, No calf tenderness and edema (Bilateral lower extremities) Psych Appearance: well kempt Mental Status: mental status grossly normal Attitude: cooperative Thought Content: normal and suicidality Judgment: judgment good Course Course Narrative: The patient has obtain significant diuresis with the IV Lasix. He has received 2 neb treatments. He still has wheezes, but is comfort has improved significantly. He does have a productive cough. He has no pneumonia. He has CHF exacerbation as well as bronchitis with a COPD. He will be discharged on Zithromax in addition to his regular medications. Orders Ordered: ED Orders 03/12/19 20:35 Blood Culture Stat 03/12/19 20:41 Lactate (Lactic Acid) Stat 03/12/19 21:34 Urine Microscopic Stat Discontinued Medications Albuterol (Ventolin) 2.5 mg INH NOW ONE Stop: 03/12/19 23:07 Last Admin: 03/12/19 23:19 Dose: 2.5 mg Albuterol/Ipratropium (Duoneb) 3 ml INH NOW ONE Stop: 03/12/19 20:17 Last Admin: 03/12/19 20:26 Dose: 3 ml Azithromycin (Zithromax) 500 mg PO NOW ONE Stop: 03/12/19 23:07 Last Admin: 03/12/19 23:21 Dose: 500 mg Furosemide (Lasix) 40 mg IV NOW ONE Stop: 03/12/19 20:17 Last Admin: 03/12/19 20:20 Dose: 40 mg Vital Signs - 8 hr 03/12/19 22:00 03/12/19 22:30 03/12/19 23:00 Pulse Rate 112 H 99 H 110 H Respiratory Rate 30 H 23 22 Blood Pressure [Left Arm] 125/71 131/65 126/59 L Pulse Oximetry 94 93 91 03/12/19 23:19 Pulse Rate 114 H Respiratory Rate 23 Blood Pressure [Left Arm] Pulse Oximetry 93 MDM - SOB/Dyspnea Lab Data Result diagrams: 03/12/19 19:40 03/12/19 19:40 Lab Results 05/23/19 05/23/19 05/23/19 Range/Units 19:40 19:40 20:41 WBC 10.1 (4.5-11.0) X10^3/uL RBC 3.67 L (4.5-5.9) X10^6/uL Hgb 10.9 L (13.5-17.5) g/dL Hct 32.9 L (41-53) % MCV 89.7 (80-100) fL MCH 29.7 (26-34) PG MCHC 33.1 (30-36) % RDW 14.1 (11.6-14.8) % Plt Count 174 (150-400) X10^3/uL Neut % (Auto) 85.4 H (50-75) % Lymph % (Auto) 3.5 L (25-40) % Gordon % (Auto) 10.4 (3-14) % Eos % (Auto) 0.3 L (2-4) % Baso % (Auto) 0.4 (0-2) % Neut # (Auto) 8600 H (2341-4374) /uL Lymph # (Auto) 400 L (0475-0266) /uL Gordon # (Auto) 1000 H (0-900) /uL Eos # (Auto) 0 (0-450) /uL Baso # (Auto) 0 (0-100) /uL Sodium 132 L (137-145) mmol/L Potassium 4.8 (3.4-5.1) mmol/L Chloride 92 L (98-107) mmol/L Carbon Dioxide 32 (22-32) mmol/L BUN 19 (9-20) mg/dL Creatinine 0.90 (0.66-1.25) mg/dL Estimated GFR > 60.0 (>60) mL/min BUN/Creatinine Ratio 21.1 (6-22) Glucose 164 H (80-110) mg/dL Lactate 0.7 (0.7-2.1) mmol/L Calcium 9.2 (8.4-10.2) mg/dL Magnesium 1.9 (1.6-2.3) mg/dL Total Creatine Kinase 33 L (55-170) U/L CK-MB (CK-2) TNP CK-MB (CK-2) Rel Index TNP Troponin I 0.048 H (0.01-0.034) ng/mL B-Natriuretic Peptide 495 H (<100) Urine RBC (0-5/HPF) Urine WBC (0-5/HPF) Ur Squamous Epith Cells (0-5/HPF) Urine Bacteria (None) Ur Culture Indicated? Micro UA Comment 03/12/19 Range/Units 21:34 WBC (4.5-11.0) X10^3/uL RBC (4.5-5.9) X10^6/uL Hgb (13.5-17.5) g/dL Hct (41-53) % MCV (80-100) fL MCH (26-34) PG MCHC (30-36) % RDW (11.6-14.8) % Plt Count (150-400) X10^3/uL Neut % (Auto) (50-75) % Lymph % (Auto) (25-40) % Gordon % (Auto) (3-14) % Eos % (Auto) (2-4) % Baso % (Auto) (0-2) % Neut # (Auto) (0180-0334) /uL Lymph # (Auto) (6388-8064) /uL Gordon # (Auto) (0-900) /uL Eos # (Auto) (0-450) /uL Baso # (Auto) (0-100) /uL Sodium (137-145) mmol/L Potassium (3.4-5.1) mmol/L Chloride (98-107) mmol/L Carbon Dioxide (22-32) mmol/L BUN (9-20) mg/dL Creatinine (0.66-1.25) mg/dL Estimated GFR (>60) mL/min BUN/Creatinine Ratio (6-22) Glucose (80-110) mg/dL Lactate (0.7-2.1) mmol/L Calcium (8.4-10.2) mg/dL Magnesium (1.6-2.3) mg/dL Total Creatine Kinase (55-170) U/L CK-MB (CK-2) CK-MB (CK-2) Rel Index Troponin I (0.01-0.034) ng/mL B-Natriuretic Peptide (<100) Urine RBC 0-1/hpf (0-5/HPF) Urine WBC 0-1/hpf (0-5/HPF) Ur Squamous Epith Cells 0-1 /hpf (0-5/HPF) Urine Bacteria None seen (None) Ur Culture Indicated? Cult not indicated Micro UA Comment Microscopic normal Urine Dip Bedside Urine Glucose Negative Bedside Urine Bilirubin - Negative Bedside Urine Ketone - Negative Urine Specific [place] 1.015 Bedside Urine Occult Blood - Negative Bedside Urine pH 7.0 Bedside Urine Protein +/- 15 Bedside Urine Urobilinogen - Negative Bedside Urine Nitrite - Negative Bedside Urine Leukocytes - Negative Esterase Imaging Data Chest x-ray: Radiologist's impression: [address] [address] XRay Report Signed Patient: Niurka Brewer EMR#: [id number] : 6Acct:[id number] Age/Sex: 82 / FDate of Service: 03/12/19 Loc: ED Accession Number: [id number] Procedure: XR ribs RT min 3V w CXR1V Ordering Provider: Juan Emery MD PROCEDURE: XR RIBS RT MIN 3V W CXR 1V INDICATIONS: Injury earlier today. Right rib pain TECHNIQUE: 2 views of the right ribs were acquired, along with a single view chest. COMPARISON: [facility], , CHEST 2 VIEW, 03/16/2016, 9:48. FINDINGS: Surgical changes and devices: There are small surgical clips in the chest wall bilaterally. Postsurgical changes are also partially visualized within the proximal left humerus. Bones and chest wall: No displaced rib fracture identified. No suspicious bony lesions. Overlying soft tissues appear unremarkable. Lungs and pleura: No pleural effusions or pneumothorax. Lungs appear clear. Mediastinum: Mediastinal contours appear normal. Heart size is normal. IMPRESSION: 1. No displaced rib fracture identified. Dictated by: Hira Flowers M.D. on 03/12/2019 at 21:46 Approved by: Hira Flowers M.D. on 03/12/2019 at 21:48 ECG Data Attestation: I personally reviewed and interpreted this ECG as follows: (Paced rhythm rate 119 beats per minute.) Discharge Plan Departure Patient Disposition: Home Clinical Impression: Acute bronchitis with COPD Congestive heart failure Qualifiers: Heart failure type: combined systolic and diastolic Heart failure chronicity: chronic Qualified Code(s): I50.42 - Chronic combined systolic (congestive) and diastolic (congestive) heart failure Discharge Date/Time: 03/12/19 23:37 Interventions: ED Discharge Assessment Last Done: 03/12/19 23:37 Instructions: Chronic Obstructive Pulmonary Disease, DI for Acute Bronchitis Activity Restrictions/Additional Instructions: Continue current medications. Zithromax 1 tablet daily for the next 4 days. Follow-up with her doctor next week to recheck. Return to the ER if obviously worse. Prescriptions: New azithromycin [Zithromax] 250 mg tablet 250 mg PO DAILY 4 Days RF: 0 No Action spironolactone 25 MG tablet 12.5 mg PO DAILY Qty: 0 RF: 0 aspirin 81 mg Tablet,Delayed Release (Dr/Ec) 81 mg PO DAILY Qty: 0 RF: 0 potassium chloride 20 mEq Tablet Extended Release 20 meq PO DAILY Qty: 0 RF: 0 allopurinol 100 mg tablet 100 mg PO DAILY RF: 0 diazepam 5 mg tablet 5 mg PO BID PRN (Reason: Anxiety) RF: 0 metformin 500 mg tablet 500 mg PO BID RF: 0 prednisone 10 mg tablet 15 mg PO PRN PRN (Reason: as directed) RF: 0 torsemide 20 mg tablet 40 mg PO QAM RF: 0 lisinopril 5 mg tablet 5 mg PO DAILY RF: 0 terazosin 2 MG capsule 4 mg PO BEDTIME RF: 0 nystatin 100,000 unit/mL Suspension 5 ml BUCCAL TID PRN (Reason: as directed) RF: 0 torsemide 20 mg Tablet 20 mg PO QPM RF: 0 naproxen 500 mg Tablet,Delayed Release (Dr/Ec) 500 mg PO DAILY PRN (Reason: pain) RF: 0 indomethacin 50 mg Capsule 50 mg PO PRN PRN (Reason: Pain, Mild) RF: 0 codeine-guaifenesin [Cheratussin AC] 10-100 mg/5 mL Liquid 10 ml PO Q4H PRN (Reason: Cough) RF: 0 calcium citrate-vitamin D2 1,500-200 mg-unit Tablet 1 tab PO DAILY RF: 0 ascorbic acid (vitamin C) 1,500 mg Tablet Extended Release 1,500 mg PO DAILY RF: 0 loratadine 10 mg Tablet 10 mg PO DAILY RF: 0 prednisone 20 mg tablet 20 mg PO DAILY Qty: 35 RF: 0 citalopram 40 mg tablet 40 mg PO DAILY RF: 0 pravastatin 40 mg tablet 40 mg PO DAILY RF: 0 bisoprolol fumarate 10 mg tablet 5 mg PO DAILY RF: 0 digoxin 125 mcg tablet 1 tab PO DAILY RF: 0 albuterol sulfate 90 mcg/actuation HFA aerosol inhaler 2 puff Inhalation Q6H PRN (Reason: Shortness Of Breath) RF: 0 oxycodone 5 mg tablet 5 mg PO Q6H PRN (Reason: Pain, Moderate) RF: 0 ipratropium-albuterol 0.5 mg-3 mg(2.5 mg base)/3 mL Solution For Nebulization 3 ml Inhalation Q6H RF: 0 calcium carbonate 600 mg calcium (1,500 mg) Tablet 1 tab PO DAILY RF: 0 budesonide 0.25 mg/2 mL Suspension For Nebulization 0.25 mg INHALATION Q12H RF: 0 colchicine 0.6 mg tablet See Rx Instructions .ROUTE .COMPLEX PRN (Reason: Gout) RF: 0 ipratropium bromide 0.02 % Solution 2.5 ml Inhalation QID PRN (Reason: Wheezing) RF: 0 Referrals: Bobo Aden MD [Primary Care Provider] -
--- NOTE | 2019-03-12 20:19 | DI.RAD.S_ITS ---
PROCEDURE: XR CHEST 1V INDICATIONS: Dyspnea TECHNIQUE: One view of the chest was acquired. COMPARISON: [facility], CR, CHEST 1 VIEW, 10/02/2017, 7:57. [facility], CR, XR CHEST 1 VIEW, 12/25/2017, 9:49. [facility], CR, XR CHEST 1V, 12/24/2018, 14:12. FINDINGS: Surgical changes and devices: Left chest wall AICD redemonstrated as well as a prosthetic aortic valve. Lungs and pleura: No acute consolidation. Mild pulmonary vascular prominence is noted suggestive of mild edema. There is mild interstitial prominence and a few linear opacities in the lung bases likely representing scarring which appear similar to the prior study. No pleural effusions or pneumothorax. Mediastinum: Mediastinal contours appear unchanged. Heart size is normal. Bones and chest wall: No suspicious bony lesions. Overlying soft tissues appear unremarkable. IMPRESSION: 1. Pulmonary vascular prominence suggestive of mild pulmonary edema. Dictated by: Hira Flowers M.D. on 03/12/2019 at 20:41 Approved by: Hira Flowers M.D. on 03/12/2019 at 20:43
[2019-03-12] MEDS: FUROSEMIDE 40 MG/4 ML VIAL IV (20:20)
[2019-03-12] MEDS: ALBUTEROL/IPRATROPIUM 3 ML AMPUL INH (20:26)
[2019-03-12 20:28] LABS: Add Manual Diff / Slide Review NO; Basophils Absolute Auto 0 /uL (0-100); Basophils Percent Auto 0.4 % (0-2); Eosinophils Absolute Auto 0 /uL (0-450); Eosinophils Percent Auto 0.3 % (2-4); Hematocrit 32.9 % (41-53); Hemoglobin 10.9 g/dL (13.5-17.5); Lymphocytes Absolute Auto 400 /uL (1100-4500); Lymphocytes Percent Auto 3.5 % (25-40); Mean Corpuscular HGB Conc 33.1 % (30-36); Mean Corpuscular Hemoglobin 29.7 PG (26-34); Mean Corpuscular Volume 89.7 fL (80-100); Monocytes Absolute Auto 1000 /uL (0-900); Monocytes Percent Auto 10.4 % (3-14); Neutrophils Absolute Auto 8600 /uL (1500-7000); Neutrophils Percent Auto 85.4 % (50-75); Platelet Count 174 X10^3/uL (150-400); Red Blood Cell Count 3.67 X10^6/uL (4.5-5.9); Red Cell Distribution Width 14.1 % (11.6-14.8); White Blood Cell Count 10.1 X10^3/uL (4.5-11.0)
[2019-03-12 20:38] LABS: BUN Creatinine Ratio 21.1 (6-22); Blood Urea Nitrogen 19 mg/dL (9-20); Calcium 9.2 mg/dL (8.4-10.2); Carbon Dioxide 32 mmol/L (22-32); Chloride 92 mmol/L (98-107); Creatine Kinase 33 U/L (55-170); Estimated Glomerular Filt Rate > 60.0 mL/min (>60); Glucose 164 mg/dL (80-110); HEMOLYSIS < 15 (0-50); Magnesium 1.9 mg/dL (1.6-2.3); Potassium 4.8 mmol/L (3.4-5.1); Sodium 132 mmol/L (137-145)
[2019-03-12 20:50] LABS: Troponin I 0.048 ng/mL (0.01-0.034)
[2019-03-12 20:53] LABS: B Type Natriuretic Peptide 495 (<100)
[2019-03-12 21:00] LABS: Lactate (Lactic Acid) 0.7 mmol/L (0.7-2.1)
[2019-03-12 21:36] LABS: Bacteria Urine None Seen
[2019-03-12 21:43] LABS: Culture Indicated Urine Cult Not Indicated; RBC Urine 0-1/HPF (0-5/HPF); Squamous Epithelial Cell Urine 0-1 /HPF (0-5/HPF); Urine Comments Microscopic Normal; WBC Urine 0-1/HPF (0-5/HPF)
--- NOTE | 2019-03-12 22:52 | PC.NURSE ---
Pt states sore throat, dyspnea and productive cough. Denies Fever or chest pain. Pt has hx of COPD and CHF, uses home oxygen on occasion and has inhaler at home. Pt has clear LS in bases with wheezes throughout. Alert and oriented x3. Denies Pain. Related Data
[2019-03-12] MEDS: ALBUTEROL 2.5 MG/3 ML NEB (ADULT) INH (23:19)
[2019-03-12] MEDS: AZITHROMYCIN 250 MG TABLET 500 MG PO (23:21)
== END 2019-03-12 23:37 | disposition home or self-care (01) ==
PROVIDERS: Emergency Provider Emergency Medicine; Family Provider Internal Medicine; PCP Internal Medicine
DX: J44.0 Chronic obstructive pulmonary disease with (acute) lower respiratory infection (principal); I50.42 Chronic combined systolic (congestive) and diastolic (congestive) heart failure; Z95.0 Presence of cardiac pacemaker
CPT/HCPCS: 36415; 36591; 71045; 80048; 81003; 81015; 82550; 83605; 83735; 83880; 84484; 85025; 87040; 93005; 93010; 94640; 96374; 99283; 99285; J1940; J7613

== ENCOUNTER 2019-06-16 11:32 | Emergency (ER) | payer MEDICARE, SELFPAY ==
[2018-06-03 14:09] VITALS: BMI 34.6
[2018-06-04 00:35] VITALS: PULSE 90; RESP 27; O2SAT 98
[2019-06-16] VITALS (7 sets, daily range): BP systolic 101–126; BP diastolic 39–76; PULSE 70–112; RESP 20–26; TEMP 36.7; O2SAT 84–96; BMI 34.7
[2019-06-16] MEDS: ALBUTEROL/IPRATROPIUM 3 ML AMPUL INH ×2 (11:48→12:12)
--- NOTE | 2019-06-16 12:03 | ED.SOB ---
HPI - SOB/Dyspnea General Chief Complaint: Shortness of Breath/Dyspnea Stated Complaint: Can't breath Time Seen by Provider: 06/16/19 11:52 Source: patient and EMS Mode of arrival: EMS Limitations: no limitations History of Present Illness 69-year-old male comes in with shortness of breath. Patient states he has had COPD for a long period of time but it has been worse over the last several days. He finally called today because he just felt like he was not improving. He states that he has been working hard. He can only go about 20 ft which normally he can walk longer distances. He does have home O2 but only uses it intermittently on a regular basis. He denies use of a CPAP or BiPAP He states uses albuterol jugular Lied denies using steroid inhalers regularly. He states that the albuterol has not been as helpful lately. He has been on prednisone and round of oral antibiotics a couple weeks ago. Patient denies any fevers or chills. He has had his normal chronic cough, no new color changes no increase in sputum production. He has a little bit of chest pain but he relates that to breathing hard and holding himself up on his table over the last several days. Denies any nausea or vomiting, he denies any new urinary issues or bowel movement issues. He states that he has swelling in his leg sometimes but that is better recently. He does have a defibrillator in place which he states was changed out last month at [facility]. Related Data Home Medications Medication Instructions Recorded Confirmed spironolactone 12.5 mg PO DAILY #0 03/04/11 06/16/19 potassium chloride 20 meq PO DAILY #0 07/26/11 06/16/19 albuterol sulfate 2 puff INHALATION Q4-6H PRN 06/03/18 06/16/19 budesonide 0.25 mg INHALATION Q12H 06/03/18 06/16/19 citalopram 40 mg PO DAILY 06/03/18 06/16/19 colchicine See Rx Instructions .ROUTE 06/03/18 06/16/19 .COMPLEX PRN oxycodone 5 mg PO Q6H PRN 06/03/18 06/16/19 pravastatin 40 mg PO DAILY 06/03/18 06/16/19 allopurinol 100 mg PO DAILY 12/24/18 06/16/19 codeine-guaifenesin [Cheratussin 5 ml PO Q4H PRN 12/24/18 06/16/19 AC] diazepam 5 mg PO TID PRN 12/24/18 06/16/19 lisinopril 5 mg PO DAILY 12/24/18 06/16/19 loratadine 10 mg PO DAILY 12/24/18 06/16/19 terazosin 6 mg PO BEDTIME 12/24/18 06/16/19 torsemide 20 mg PO QPM 12/24/18 06/16/19 torsemide 40 mg PO QAM 12/24/18 06/16/19 acetaminophen 500 mg PO TID PRN 06/16/19 06/16/19 albuterol sulfate 2.5 mg INHALATION Q4H PRN 06/16/19 06/16/19 apixaban [Eliquis] 5 mg PO BID 06/16/19 06/16/19 calcium carbonate 1,500 mg PO DAILY 06/16/19 06/16/19 cholecalciferol (vitamin D3) 1,000 unit PO DAILY 06/16/19 06/16/19 [Vitamin D3] glipizide 2.5 mg PO DAILY 06/16/19 06/16/19 metoprolol succinate 25 mg PO DAILY 06/16/19 06/16/19 Previous Rx's Medication Instructions Recorded azithromycin See Rx Instructions .ROUTE 06/16/19 .COMPLEX #6 tab Allergies Allergy/AdvReac Type Severity Reaction Status Date / Time No Known Drug Allergies Allergy Verified 03/12/19 19:38 Review of Systems Review of Systems ROS Unobtainable: All systems reviewed & are unremarkable except as noted in HPI and below Constitutional Denies chills, Denies fever(s), Denies lethargy and Denies weakness Cardiovascular Reports chest pain, Denies diaphoresis, Denies syncope, Denies rapid heart rate, Denies edema, Denies irregular heart rhythm, Denies leg edema, Denies lightheadedness, Denies palpitations, Reports dyspnea, Reports dyspnea on exertion and Denies orthopnea Respiratory Denies change in phlegm color, Denies chest congestion, Reports cough, Denies hemoptysis, Denies excessive phlegm production, Denies pain on inspiration, Denies pain with cough, Reports dyspnea, Reports dyspnea on exertion, Denies stridor and Reports wheezing Gastrointestinal Gastrointestinal: Denies abdominal pain, Denies change in bowel habits, Denies diarrhea, Denies nausea and Denies vomiting Genitourinary Denies hematuria, Denies flank pain, Denies urinary frequency, Denies urinary hesitancy, Denies urinary incontinence and Denies urinary urgency Integumentary/Breasts Denies rash Neurologic Denies syncope and Denies weakness Endocrine Denies palpitations Allergic/Immunologic Reports wheezing [facility] Medical History COPD (chronic obstructive pulmonary disease) (Acute) CHF (congestive heart failure) (Acute) Cardiac defibrillator in place (Acute) Prediabetes (Acute) Right femoral fracture (Acute) Surgical History S/P TAVR (transcatheter aortic valve replacement) (Acute) Social History household members: family Smoking Status: Former smoker Social History household members: family Smoking Status: Former smoker Exam Narrative Exam Narrative: GEN: well nourished, well appearing obese elderly male, alert and oriented x 3, patient appears to be in mild distress. HEENT: Atraumatic, pupils are equal round reactive to light, extraocular movements are intact, nares are clear. Throat is clear without any exudates, erythema, tonsillar enlargement or uvular deviation HEART: Regular rate and rhythm without murmur, clicks, rubs. Pulses are equal in upper and lower extremities LUNGS:Lungs are diffusely wheezy bilaterally, rales, crackles, chest moves symmetrically, tachypnea with pursed lip breathing. Mild accessory use of the neck but no or intercostal accessory muscle use. ABD:bowel sounds normal, soft, non-tender, no guarding, rebound, rigidity, no masses noted, no hepatosplenomegaly :No CVA tenderness MSCL: Non-tender, no muscle atrophy, muscles strength 5/5 upper and lower extremities, full range of motion. NEURO:CN 2-12 intact, sensation normal Initial Vital Signs Initial Vital Signs: Vital Signs Temperature 98.1 F 06/16/19 11:43 Pulse Rate 112 H 06/16/19 11:43 Respiratory Rate 26 H 06/16/19 11:43 Blood Pressure 110/76 06/16/19 11:43 Pulse Oximetry 84 L 06/16/19 11:43 Course Orders Ordered: ED Orders 06/16/19 11:41 EKG-12 Lead Stat 06/16/19 11:42 B Type Natriuretic Peptide Stat Basic Metabolic Panel Stat Complete Blood Count AUTO DIFF Stat Magnesium Stat Procalcitonin Stat Troponin & CK Cardiac Panel Stat 06/16/19 11:53 Consult to Respiratory Therapy Evaluate & Treat 06/16/19 12:10 XR chest 1V Stat 06/16/19 12:25 Lactate (Lactic Acid) Stat 06/16/19 13:25 Arterial Blood Gas Stat Discontinued Medications Albuterol/Ipratropium (Duoneb) 3 ml INH NOW ONE Stop: 06/16/19 11:54 Last Admin: 06/16/19 11:48 Dose: 3 ml Sodium Chloride (Normal Saline 0.9%) 1,000 mls @ 150 mls/hr IV CONT KENNETH Last Infusion: 06/16/19 14:17 Dose: 0 mls/hr Infusion: 06/16/19 13:45 Dose: 1,000 mls/hr Admin: 06/16/19 12:12 Dose: 150 mls/hr Methylprednisolone (Solu-Medrol 125 Mg Vial) 125 mg IV NOW ONE Stop: 06/16/19 11:54 Last Admin: 06/16/19 12:12 Dose: 125 mg Vital Signs - 8 hr 06/16/19 11:43 06/16/19 11:45 06/16/19 11:57 Temperature 98.1 F Pulse Rate 112 H 92 H 92 H Respiratory Rate 26 H 23 20 Blood Pressure 110/76 Blood Pressure [Right Arm] Pulse Oximetry 84 L 93 96 06/16/19 12:30 06/16/19 13:00 06/16/19 13:30 Temperature Pulse Rate 89 70 81 Respiratory Rate 24 21 20 Blood Pressure Blood Pressure [Right Arm] 102/60 101/67 126/62 Pulse Oximetry 94 94 06/16/19 14:00 Temperature Pulse Rate 79 Respiratory Rate 20 Blood Pressure Blood Pressure [Right Arm] 107/39 L Pulse Oximetry 92 MDM - SOB/Dyspnea Lab Data Attestation: I reviewed the patient's lab results. Result diagrams: 06/16/19 11:42 06/16/19 11:42 Lab Results 06/16/19 06/16/19 06/16/19 Range/Units 11:42 11:42 11:42 WBC 9.9 (4.5-11.0) X10^3/uL RBC 4.24 L (4.5-5.9) X10^6/uL Hgb 11.9 L (13.5-17.5) g/dL Hct 36.4 L (41-53) % MCV 86.0 (80-100) fL MCH 28.1 (26-34) PG MCHC 32.7 (30-36) % RDW 16.5 H (11.6-14.8) % Plt Count 154 (150-400) X10^3/uL Neut % (Auto) 82.0 H (50-75) % Lymph % (Auto) 7.3 L (25-40) % [place] % (Auto) 7.7 (3-14) % Eos % (Auto) 2.5 (2-4) % Baso % (Auto) 0.5 (0-2) % Neut # (Auto) 8200 H (0759-9273) /uL Lymph # (Auto) 700 L (8425-9622) /uL [place] # (Auto) 800 (0-900) /uL Eos # (Auto) 200 (0-450) /uL Baso # (Auto) 100 (0-100) /uL ABG pH (7.35-7.45) ABG pCO2 (35-45) mmHg ABG pO2 (80-100) mmHg ABG HCO3 (22-26) mmol/L ABG Total CO2 (21-31) mmol/L ABG O2 Saturation (95-100) % ABG Base Excess (-2-2) mmol/L FiO2 Sodium 131 L (137-145) mmol/L Potassium 5.3 H (3.4-5.1) mmol/L Chloride 91 L (98-107) mmol/L Carbon Dioxide 32 (22-32) mmol/L BUN 48 H (9-20) mg/dL Creatinine 1.40 H (0.66-1.25) mg/dL Estimated GFR 50.2 L (>60) mL/min BUN/Creatinine Ratio 34.3 H (6-22) Glucose 104 (80-110) mg/dL Lactate (0.7-2.1) mmol/L Calcium 8.9 (8.4-10.2) mg/dL Magnesium 2.1 (1.6-2.3) mg/dL Total Creatine Kinase 65 (55-170) U/L CK-MB (CK-2) TNP CK-MB (CK-2) Rel Index TNP Troponin I 0.036 H (0.01-0.034) ng/mL B-Natriuretic Peptide 293 H (<100) Procalcitonin < 0.05 (<0.5) ng/mL 06/16/19 06/16/19 Range/Units 12:25 13:25 WBC (4.5-11.0) X10^3/uL RBC (4.5-5.9) X10^6/uL Hgb (13.5-17.5) g/dL Hct (41-53) % MCV (80-100) fL MCH (26-34) PG MCHC (30-36) % RDW (11.6-14.8) % Plt Count (150-400) X10^3/uL Neut % (Auto) (50-75) % Lymph % (Auto) (25-40) % [place] % (Auto) (3-14) % Eos % (Auto) (2-4) % Baso % (Auto) (0-2) % Neut # (Auto) (5941-8323) /uL Lymph # (Auto) (9165-6388) /uL [place] # (Auto) (0-900) /uL Eos # (Auto) (0-450) /uL Baso # (Auto) (0-100) /uL ABG pH 7.33 L (7.35-7.45) ABG pCO2 56.8 H (35-45) mmHg ABG pO2 67 L (80-100) mmHg ABG HCO3 30 H (22-26) mmol/L ABG Total CO2 31 (21-31) mmol/L ABG O2 Saturation 91 L (95-100) % ABG Base Excess 4.0 H (-2-2) mmol/L FiO2 0.21 Sodium (137-145) mmol/L Potassium (3.4-5.1) mmol/L Chloride (98-107) mmol/L Carbon Dioxide (22-32) mmol/L BUN (9-20) mg/dL Creatinine (0.66-1.25) mg/dL Estimated GFR (>60) mL/min BUN/Creatinine Ratio (6-22) Glucose (80-110) mg/dL Lactate 0.8 (0.7-2.1) mmol/L Calcium (8.4-10.2) mg/dL Magnesium (1.6-2.3) mg/dL Total Creatine Kinase (55-170) U/L CK-MB (CK-2) CK-MB (CK-2) Rel Index Troponin I (0.01-0.034) ng/mL B-Natriuretic Peptide (<100) Procalcitonin (<0.5) ng/mL Urine Dip Bedside Urine Glucose Negative Bedside Urine Bilirubin - Negative Bedside Urine Ketone - Negative Urine Specific [place] 1.015 Bedside Urine Occult Blood - Negative Bedside Urine pH 6.0 Bedside Urine Protein - Negative Bedside Urine Urobilinogen - Negative Bedside Urine Nitrite - Negative Bedside Urine Leukocytes - Negative Esterase Imaging Data Chest x-ray: Radiologist's impression: [address] [address] XRay Report Signed Patient: Gavin RuckerMR#: [id number] : 1950Acct:[id number] Age/Sex: 69 / MDate of Service: 06/16/19 Loc: ED Accession Number: [id number] Procedure: XR chest 1V Ordering Provider: Virginia Pisano D.O. PROCEDURE: XR CHEST 1V INDICATIONS: sob, wheezing TECHNIQUE: One view of the chest was acquired. COMPARISON: [facility] , XR CHEST 1V, 03/12/2019, 20:26. FINDINGS: Surgical changes and devices: Pacemaker. Lungs and pleura: Mild increased pulmonary vascularity. Mediastinum: Mediastinal contours appear normal. Heart size is enlarged. Bones and chest wall: No suspicious bony lesions. Overlying soft tissues appear unremarkable. IMPRESSION: Mild increased vascularity with edema. Dictated by: Bonnie Reyes M.D. on 06/16/2019 at 12:30 Approved by: Bonnie Reyes M.D. on 06/16/2019 at 12:31 ECG Data Attestation: I personally reviewed and interpreted this ECG as follows: Prior ECG tracings: available for review Interpretation: Ventricularly paced rhythm, rate of 92, pr of 135, qrs of 169, qtc 476. No new ST changes. MDM Narrative Medical decision making narrative: Recheck after first duoneb, patient is still significantly wheezy. Repeated duoneb and albuterol with minimal improvement. Patient labs show white count. Patient has RDW of 16.5 and slightly elevated neutrophil count. Chemistry show mild hyponatremia with elevated potassium 5.3 and chloride 91, patient's BUN and creatinine are both elevated suggesting prerenal acute kidney injury and dehydration. Patient's lactate is in normal range with a troponin is indeterminate but in long the lines of his prior troponins from May of 2018 until recently. BNP is also slightly elevated at 290's but this is improved from prios of 400-500's in the past. Patient does not look particularly fluid overload and I suspect that his more related to COPD exacerbation and not CHF. He does have ventricularly paced rhythm which appears similar to prior EKGs. Chest x-ray shows mild increased vascularity with edema. On recheck, patient is feeling better. He would like to return home. He is sitting on the edge of the bed. Patient states he has prednisone at home, has typically been treated with azithromycin and prednisone for exacerbations. Cannot afford steroid inhalers second to co-pay so is not using them. I spoke with Dr. Aden, primary care he is familiar with the patient and will reach out to him. He is on surprised by his wish to return home. We did discuss his lab work, cardiac enzymes and patient's findings today. Discharge Plan Departure Patient Disposition: Home Clinical Impression: Acute exacerbation of chronic obstructive pulmonary disease (COPD), Acute kidney injury Discharge Date/Time: 06/16/19 14:50 Interventions: ED Discharge Assessment Last Done: 06/16/19 15:01 Instructions: DI for Chronic Obstructive Pulmonary Disease Activity Restrictions/Additional Instructions: Follow up with Dr. Aden in the next few days, call for an appointment. Her labs does show some signs of dehydration you received 1 Liter of fluids but make sure to drink plenty of fluids each day Take prednisone as prescribed by Dr. Aden. Start azithromycin today. Take until gone. Continue home medications as prescribed. Return to the Emergency Department for any new or worsening symptoms, new or worsening chest pain, lightheadedness, passing out, worsening difficulty breathing, worsening wheezing that does not respond albuterol or prednisone, new swelling in her lower extremities or any other new or concerning symptoms. Prescriptions: New azithromycin 250 mg tablet See Rx Instructions .ROUTE .COMPLEX Qty: 6 RF: 0 No Action spironolactone 25 MG tablet 12.5 mg PO DAILY Qty: 0 RF: 0 potassium chloride 20 mEq Tablet Extended Release 20 meq PO DAILY Qty: 0 RF: 0 allopurinol 100 mg tablet 100 mg PO DAILY RF: 0 diazepam 5 mg tablet 5 mg PO TID PRN (Reason: Anxiety) RF: 0 torsemide 20 mg tablet 40 mg PO QAM RF: 0 lisinopril 5 mg tablet 5 mg PO DAILY RF: 0 terazosin 2 MG capsule 6 mg PO BEDTIME RF: 0 torsemide 20 mg Tablet 20 mg PO QPM RF: 0 codeine-guaifenesin [Cheratussin AC] 10-100 mg/5 mL Liquid 5 ml PO Q4H PRN (Reason: Cough) RF: 0 loratadine 10 mg Tablet 10 mg PO DAILY RF: 0 citalopram 40 mg tablet 40 mg PO DAILY RF: 0 pravastatin 40 mg tablet 40 mg PO DAILY RF: 0 albuterol sulfate 90 mcg/actuation HFA aerosol inhaler 2 puff Inhalation Q4-6H PRN (Reason: Shortness Of Breath) RF: 0 oxycodone 5 mg tablet 5 mg PO Q6H PRN (Reason: Pain, Moderate) RF: 0 budesonide 0.25 mg/2 mL Suspension For Nebulization 0.25 mg INHALATION Q12H RF: 0 colchicine 0.6 mg tablet See Rx Instructions .ROUTE .COMPLEX PRN (Reason: Gout) RF: 0 glipizide 5 mg tablet 2.5 mg PO DAILY RF: 0 metoprolol succinate 25 mg tablet extended release 24 hr 25 mg PO DAILY RF: 0 albuterol sulfate 2.5 mg /3 mL (0.083 %) Solution For Nebulization 2.5 mg INHALATION Q4H PRN (Reason: Shortness Of Breath) RF: 0 calcium carbonate 600 mg calcium (1,500 mg) Tablet 1,500 mg PO DAILY RF: 0 acetaminophen 500 mg Capsule 500 mg PO TID PRN (Reason: pain) RF: 0 cholecalciferol (vitamin D3) [Vitamin D3] 1,000 unit Capsule 1,000 unit PO DAILY RF: 0 Eliquis 5 mg tablet 5 mg PO BID RF: 0 Referrals: Bobo Aden MD [Primary Care Provider] -
[2019-06-16 12:08] LABS: BUN Creatinine Ratio 34.3 (6-22); Blood Urea Nitrogen 48 mg/dL (9-20); Calcium 8.9 mg/dL (8.4-10.2); Carbon Dioxide 32 mmol/L (22-32); Chloride 91 mmol/L (98-107); Creatine Kinase 65 U/L (55-170); Estimated Glomerular Filt Rate 50.2 mL/min (>60); Glucose 104 mg/dL (80-110); HEMOLYSIS 17 (0-50); Magnesium 2.1 mg/dL (1.6-2.3); Potassium 5.3 mmol/L (3.4-5.1); Sodium 131 mmol/L (137-145)
[2019-06-16 12:10] LABS: Add Manual Diff / Slide Review NO; Basophils Absolute Auto 100 /uL (0-100); Basophils Percent Auto 0.5 % (0-2); Eosinophils Absolute Auto 200 /uL (0-450); Eosinophils Percent Auto 2.5 % (2-4); Hematocrit 36.4 % (41-53); Hemoglobin 11.9 g/dL (13.5-17.5); Lymphocytes Absolute Auto 700 /uL (1100-4500); Lymphocytes Percent Auto 7.3 % (25-40); Mean Corpuscular HGB Conc 32.7 % (30-36); Mean Corpuscular Hemoglobin 28.1 PG (26-34); Monocytes Absolute Auto 800 /uL (0-900); Monocytes Percent Auto 7.7 % (3-14); Neutrophils Absolute Auto 8200 /uL (1500-7000); Platelet Count 154 X10^3/uL (150-400); Red Blood Cell Count 4.24 X10^6/uL (4.5-5.9); Red Cell Distribution Width 16.5 % (11.6-14.8); White Blood Cell Count 9.9 X10^3/uL (4.5-11.0)
--- NOTE | 2019-06-16 12:10 | DI.RAD.S_ITS ---
PROCEDURE: XR CHEST 1V INDICATIONS: sob, wheezing TECHNIQUE: One view of the chest was acquired. COMPARISON: [facility], CR, XR CHEST 1V, 03/12/2019, 20:26. FINDINGS: Surgical changes and devices: Pacemaker. Lungs and pleura: Mild increased pulmonary vascularity. Mediastinum: Mediastinal contours appear normal. Heart size is enlarged. Bones and chest wall: No suspicious bony lesions. Overlying soft tissues appear unremarkable. IMPRESSION: Mild increased vascularity with edema. Dictated by: Bonnie Reyes M.D. on 06/16/2019 at 12:30 Approved by: Bonnie Reyes M.D. on 06/16/2019 at 12:31
[2019-06-16] MEDS: methylPREDNISolone 125 MG/2 ML VIAL IV (12:12)
[2019-06-16] MEDS: SODIUM CHLORIDE 0.9% 1,000 ML 150 ML IV (12:12)
[2019-06-16 12:20] LABS: Troponin I 0.036 ng/mL (0.01-0.034)
[2019-06-16 12:38] LABS: B Type Natriuretic Peptide 293 (<100)
[2019-06-16 12:40] LABS: Procalcitonin < 0.05 ng/mL (<0.5)
[2019-06-16 12:48] LABS: Lactate (Lactic Acid) 0.8 mmol/L (0.7-2.1)
[2019-06-16 13:46] LABS: PCO2 ABG 56.8 mmHg (35-45); pH ABG 7.33 (7.35-7.45)
[2019-06-16 13:47] LABS: HCO3 ABG 30 mmol/L (22-26); Oxygen Saturation ABG 91 % (95-100); PO2 ABG 67 mmHg (80-100); TCO2 ABG 31 mmol/L (21-31)
[2019-06-16 13:48] LABS: Fractionated Inspired Oxygen 0.21
--- NOTE | 2019-06-16 14:12 | PC.NURSE ---
increased fluid rate to 1000mL/hr per Dr. Pisano
== END 2019-06-16 14:50 | disposition home or self-care (01) ==
PROVIDERS: Emergency Provider Emergency Medicine; Family Provider Internal Medicine; PCP Internal Medicine
DX: J44.1 Chronic obstructive pulmonary disease with (acute) exacerbation (principal); N17.9 Acute kidney failure, unspecified
CPT/HCPCS: 36415; 36591; 36600; 71045; 80048; 81003; 82550; 82805; 83605; 83735; 83880; 84145; 84484; 85025; 93005; 94640; 96361; 96374; 99285; J2930

== ENCOUNTER 2019-07-03 14:58 | Inpatient (IN) | payer MEDICARE, SELFPAY ==
[2018-06-03 14:09] VITALS: BMI 34.6
[2018-06-04 00:35] VITALS: PULSE 90; RESP 27; O2SAT 98
[2019-07-03] VITALS (7 sets, daily range): BP systolic 117–127; BP diastolic 60–67; PULSE 79–90; RESP 16–26; TEMP 36.5–36.8; O2SAT 92–96; BMI 36.0; BMI 34.2
--- NOTE | 2019-07-03 15:14 | DI.RAD.S_ITS ---
PROCEDURE: XR CHEST 1V INDICATIONS: shortness of breath TECHNIQUE: One view of the chest was acquired. COMPARISON: [facility], CR, XR CHEST 1V, 06/16/2019, 12:14; 03/16/2019, 03/12/2019, 12/24/2018. FINDINGS: Surgical changes and devices: Left upper chest cardiac generator device with right atrial lead, right ventricular AICD lead, and coronary sinus lead, unchanged. TAVR stent is in the expected location and is unchanged. Lungs and pleura: Prominence of the pulmonary vasculature with a central predominance. Lungs otherwise appear clear. No pleural effusions or pneumothorax. Mediastinum: Mediastinal contours appear normal. Heart size is enlarged but similar to before. Bones and chest wall: No suspicious bony lesions. Overlying soft tissues appear unremarkable. IMPRESSION: Mild fluid overload/CHF. Cardiomegaly. Dictated by: Grant Gonzalez M.D. on 07/03/2019 at 15:33 Approved by: Grant Gonzalez M.D. on 07/03/2019 at 15:35
[2019-07-03 15:47] LABS: Add Manual Diff / Slide Review NO; Basophils Absolute Auto 100 /uL (0-100); Basophils Percent Auto 0.6 % (0-2); Eosinophils Absolute Auto 200 /uL (0-450); Eosinophils Percent Auto 2.3 % (2-4); Hematocrit 35.8 % (41-53); Hemoglobin 11.8 g/dL (13.5-17.5); Lymphocytes Absolute Auto 900 /uL (1100-4500); Lymphocytes Percent Auto 10.2 % (25-40); Mean Corpuscular Hemoglobin 28.7 PG (26-34); Mean Corpuscular Volume 86.9 fL (80-100); Monocytes Absolute Auto 800 /uL (0-900); Neutrophils Absolute Auto 7000 /uL (1500-7000); Neutrophils Percent Auto 77.9 % (50-75); Platelet Count 148 X10^3/uL (150-400); Red Blood Cell Count 4.12 X10^6/uL (4.5-5.9); Red Cell Distribution Width 17.2 % (11.6-14.8); White Blood Cell Count 8.9 X10^3/uL (4.5-11.0)
[2019-07-03] MEDS: ALBUTEROL/IPRATROPIUM 3 ML AMPUL INH (15:58)
[2019-07-03 16:02] LABS: Alanine Aminotransferase 26 IU/L (21-72); Albumin 4.2 g/dL (3.5-5.0); Albumin Globulin Ratio 1.4 (1.0-2.8); Alkaline Phosphatase 82 U/L (38-126); Aspartate Aminotransferase 26 IU/L (17-59); Bilirubin Total 0.5 mg/dL (0.2-1.3); Blood Urea Nitrogen 49 mg/dL (9-20); Calcium 9.3 mg/dL (8.4-10.2); Carbon Dioxide 36 mmol/L (22-32); Chloride 90 mmol/L (98-107); Creatine Kinase 44 U/L (55-170); Estimated Glomerular Filt Rate 50.2 mL/min (>60); Glucose 116 mg/dL (80-110); HEMOLYSIS < 15 (0-50); Lipase 196 U/L (23-300); Potassium 4.9 mmol/L (3.4-5.1); Sodium 135 mmol/L (137-145); Total Protein 7.2 g/dL (6.3-8.2)
[2019-07-03 16:14] LABS: Troponin I 0.074 ng/mL (0.01-0.034)
[2019-07-03] MEDS: FUROSEMIDE 40 MG/4 ML VIAL IV (16:40)
--- NOTE | 2019-07-03 16:47 | ED_ITS ---
HPI - SOB/Dyspnea General Chief Complaint: Shortness of Breath/Dyspnea Stated Complaint: SOB Time Seen by Provider: 07/03/19 16:40 Source: patient and old records reviewed Limitations: no limitations History of Present Illness HPI Narrative: Patient is a 69-year-old male who presents with increasing shortness of breath. He has a history of CHF and COPD. He was seen here 06/16/2019, diagnosed with COPD placed on azithromycin and prednisone. Over last 3 days he has had increasing shortness of breath worse with exertion and orthopnea. He says he swollen around his belly. He does have some oxygen at home which she uses occasionally but is requiring 2-3 L in the ED now. He had a DuoNeb treatment he said helped a little bit. MD Complaint: shortness of breath Onset (ago): day(s) (3) Context: recent illness Related Data Home Medications Medication Instructions Recorded Confirmed spironolactone 25 mg PO DAILY #0 03/04/11 07/03/19 potassium chloride 20 meq PO DAILY #0 07/26/11 07/03/19 albuterol sulfate 2 puff INHALATION Q4-6H PRN 06/03/18 07/03/19 budesonide 0.25 mg INHALATION Q12H 06/03/18 07/03/19 colchicine See Rx Instructions .ROUTE 06/03/18 07/03/19 .COMPLEX PRN oxycodone 5 mg PO Q6H PRN 06/03/18 07/03/19 pravastatin 40 mg PO DAILY 06/03/18 07/03/19 allopurinol 100 mg PO DAILY PRN 12/24/18 07/03/19 codeine-guaifenesin [Cheratussin 5 ml PO Q4H PRN 12/24/18 07/03/19 AC] diazepam 5 mg PO TID PRN 12/24/18 07/03/19 lisinopril 5 mg PO DAILY 12/24/18 07/03/19 loratadine 10 mg PO DAILY 12/24/18 07/03/19 terazosin 6 mg PO BEDTIME 12/24/18 07/03/19 torsemide 20 mg PO QPM 12/24/18 07/03/19 torsemide 40 mg PO QAM 12/24/18 07/03/19 acetaminophen 500 mg PO TID PRN 06/16/19 07/03/19 albuterol sulfate 2.5 mg INHALATION Q4H PRN 06/16/19 07/03/19 apixaban [Eliquis] 5 mg PO BID 06/16/19 07/03/19 calcium carbonate 1,500 mg PO DAILY 06/16/19 07/03/19 cholecalciferol (vitamin D3) 1,000 unit PO DAILY 06/16/19 07/03/19 [Vitamin D3] glipizide 2.5 mg PO DAILY 06/16/19 07/03/19 metoprolol succinate 25 mg PO DAILY 06/16/19 07/03/19 citalopram 40 mg PO DAILY 07/03/19 07/03/19 prednisone See Rx Instructions .ROUTE .COMPLEX 07/03/19 07/03/19 Allergies Allergy/AdvReac Type Severity Reaction Status Date / Time amoxicillin Allergy Intermediate Hives Verified 07/03/19 16:18 ciprofloxacin [From Cipro] Allergy Intermediate Rash Verified 07/03/19 16:18 Review of Systems Review of Systems Narrative: GENERAL: Denies chills, fatigue, malaise, fever, sweats, travel HEENT: Denies sinus pain, ear pain, sore throat, difficulty swallowing, neck pain RESPIRATORY: see hPI CARDIOVASCULAR: Denies chest pain, palpitations, orthopnea, edema GASTROINTESTINAL: Denies nausea, vomiting, abdominal pain, diarrhea, const ipation, melena. : Denies dysuria, frequency, incontinence, hematuria, urinary retention, flank pain. MUSCULOSKELETAL: Denies weakness, joint pain, or bony pain SKIN: No rash, no erythema, no pruritus NEUROLOGIC: Denies weakness, dizziness, headache, numbness, change in speech, confusion PSYCHIATRIC: No concerning psychosocial issues. 12 point review of systems is negative except for those stated above and HPI PFSH Medical History Cardiac defibrillator in place (Acute) CHF (congestive heart failure) (Acute) COPD (chronic obstructive pulmonary disease) (Acute) Prediabetes (Acute) Right femoral fracture (Acute) Surgical History S/P TAVR (transcatheter aortic valve replacement) (Acute) Social History household members: family Smoking Status: Former smoker Social History household members: family Smoking Status: Former smoker alcohol intake: former Exam Initial Vital Signs Initial Vital Signs: Vital Signs Temperature 97.9 F 07/03/19 15:06 Pulse Rate 90 07/03/19 15:06 Respiratory Rate 24 07/03/19 15:06 Blood Pressure 121/67 07/03/19 15:06 Pulse Oximetry 93 07/03/19 15:06 GENERAL: Alert elderly gentleman in mild respiratory distress HEENT: Head atraumatic,EOMI, pupils reactive, CARDIOVASCULAR: Regular rate and rhythm without murmurs, rubs or gallops. RESPIRATORY:coarse bilaterally, speaks in 3-5 word sentences ABDOMEN: Soft, nontender. Normoactive bowel sounds all 4 quadrants. No guarding or rebound. EXTREMITIES: Normal range of motion, no clubbing or edema. Neurovascularly intact NEUROLOGICAL: Alert and oriented x4.Normal gait and speech. Cranial nerves II through XII grossly intact. SKIN: Warm, dry, no laceration, no petechiae, no rashes or lesions. Course Orders Ordered: ED Orders 07/03/19 15:14 XR chest 1V Stat EKG-12 Lead Stat 07/03/19 15:30 B Type Natriuretic Peptide Stat Complete Blood Count AUTO DIFF Stat Comprehensive Metabolic Panel Stat Lipase Stat Magnesium Stat Troponin & CK Cardiac Panel Stat Discontinued Medications Albuterol/Ipratropium (Duoneb) 3 ml INH NOW ONE Stop: 07/03/19 15:59 Last Admin: 07/03/19 15:58 Dose: 3 ml Documented by: MARINA Furosemide (Lasix) 40 mg IV NOW ONE Stop: 07/03/19 16:05 Last Admin: 07/03/19 16:40 Dose: 40 mg Documented by: LIN Vital Signs Vital signs: Vital Signs - 8 hr 07/03/19 15:06 07/03/19 15:52 07/03/19 15:54 Temperature 97.9 F Pulse Rate 90 85 79 Respiratory Rate 24 26 H 16 Blood Pressure 121/67 Pulse Oximetry 93 92 96 MDM - SOB/Dyspnea Lab Data Attestation: I reviewed the patient's lab results. Result diagrams: 07/03/19 15:30 07/03/19 15:30 Labs: Lab Results 07/03/19 07/03/19 07/03/19 Range/Units 15:30 15:30 15:30 WBC 8.9 (4.5-11.0) X10^3/uL RBC 4.12 L (4.5-5.9) X10^6/uL Hgb 11.8 L (13.5-17.5) g/dL Hct 35.8 L (41-53) % MCV 86.9 (80-100) fL MCH 28.7 (26-34) PG MCHC 33.0 (30-36) % RDW 17.2 H (11.6-14.8) % Plt Count 148 L (150-400) X10^3/uL Neut % (Auto) 77.9 H (50-75) % Lymph % (Auto) 10.2 L (25-40) % Bullock % (Auto) 9.0 (3-14) % Eos % (Auto) 2.3 (2-4) % Baso % (Auto) 0.6 (0-2) % Neut # (Auto) 7000 (2486-9614) /uL Lymph # (Auto) 900 L (6142-7611) /uL Bullock # (Auto) 800 (0-900) /uL Eos # (Auto) 200 (0-450) /uL Baso # (Auto) 100 (0-100) /uL Sodium 135 L (137-145) mmol/L Potassium 4.9 (3.4-5.1) mmol/L Chloride 90 L (98-107) mmol/L Carbon Dioxide 36 H (22-32) mmol/L BUN 49 H (9-20) mg/dL Creatinine 1.40 H (0.66-1.25) mg/dL Estimated GFR 50.2 L (>60) mL/min BUN/Creatinine Ratio 35.0 H (6-22) Glucose 116 H (80-110) mg/dL Calcium 9.3 (8.4-10.2) mg/dL Magnesium (1.6-2.3) mg/dL Total Bilirubin 0.5 (0.2-1.3) mg/dL AST 26 (17-59) IU/L ALT 26 (21-72) IU/L Alkaline Phosphatase 82 (38-126) U/L Total Creatine Kinase 44 L (55-170) U/L CK-MB (CK-2) TNP CK-MB (CK-2) Rel Index TNP Troponin I 0.074 H (0.01-0.034) ng/mL B-Natriuretic Peptide 163 H (<100) Total Protein 7.2 (6.3-8.2) g/dL Albumin 4.2 (3.5-5.0) g/dL Globulin 3.0 (1.7-4.1) g/dL Albumin/Globulin Ratio 1.4 (1.0-2.8) Lipase 196 (23-300) U/L 07/03/19 Range/Units 15:30 WBC (4.5-11.0) X10^3/uL RBC (4.5-5.9) X10^6/uL Hgb (13.5-17.5) g/dL Hct (41-53) % MCV (80-100) fL MCH (26-34) PG MCHC (30-36) % RDW (11.6-14.8) % Plt Count (150-400) X10^3/uL Neut % (Auto) (50-75) % Lymph % (Auto) (25-40) % Bullock % (Auto) (3-14) % Eos % (Auto) (2-4) % Baso % (Auto) (0-2) % Neut # (Auto) (3842-9202) /uL Lymph # (Auto) (8029-5492) /uL Bullock # (Auto) (0-900) /uL Eos # (Auto) (0-450) /uL Baso # (Auto) (0-100) /uL Sodium (137-145) mmol/L Potassium (3.4-5.1) mmol/L Chloride (98-107) mmol/L Carbon Dioxide (22-32) mmol/L BUN (9-20) mg/dL Creatinine (0.66-1.25) mg/dL Estimated GFR (>60) mL/min BUN/Creatinine Ratio (6-22) Glucose (80-110) mg/dL Calcium (8.4-10.2) mg/dL Magnesium 2.3 (1.6-2.3) mg/dL Total Bilirubin (0.2-1.3) mg/dL AST (17-59) IU/L ALT (21-72) IU/L Alkaline Phosphatase (38-126) U/L Total Creatine Kinase (55-170) U/L CK-MB (CK-2) CK-MB (CK-2) Rel Index Troponin I (0.01-0.034) ng/mL B-Natriuretic Peptide (<100) Total Protein (6.3-8.2) g/dL Albumin (3.5-5.0) g/dL Globulin (1.7-4.1) g/dL Albumin/Globulin Ratio (1.0-2.8) Lipase (23-300) U/L Urine Dip Bedside Urine Glucose Negative Bedside Urine Bilirubin - Negative Bedside Urine Ketone - Negative Urine Specific [place] 1.010 Bedside Urine Occult Blood - Negative Bedside Urine pH 7.5 Bedside Urine Protein - Negative Bedside Urine Urobilinogen - Negative Bedside Urine Nitrite - Negative Bedside Urine Leukocytes - Negative Esterase Imaging Data Chest x-ray: Radiologist's impression: PROCEDURE: XR CHEST 1V INDICATIONS: shortness of breath TECHNIQUE: One view of the chest was acquired. COMPARISON: [facility], , XR CHEST 1V, 06/16/2019, 12:14; 03/16/2019, 03/12/2019, 12/24/2018. FINDINGS: Surgical changes and devices: Left upper chest cardiac generator device with right atrial lead, right ventricular AICD lead, and coronary sinus lead, unchanged. TAVR stent is in the expected location and is unchanged. Lungs and pleura: Prominence of the pulmonary vasculature with a central predominance. Lungs otherwise appear clear. No pleural effusions or pneumothorax. Mediastinum: Mediastinal contours appear normal. Heart size is enlarged but similar to before. Bones and chest wall: No suspicious bony lesions. Overlying soft tissues appear unremarkable. IMPRESSION: Mild fluid overload/CHF. Cardiomegaly. Dictated by: Grant Gonzalez M.D. on 07/03/2019 at 15:33 Approved by: Grant Gonzalez M.D. on 07/03/2019 at 15:35 ECG Data Attestation: I personally reviewed and interpreted this ECG as follows: Prior ECG tracings: available for review Interpretation: Paced rhythm rate [address] changes MDM Narrative Medical decision making narrative: The patient has already been treated as out patient for COPD. Having increasing shortness of breath. He he sounds coarse he is requiring oxygen. Indeterminate troponin likely from cardiac strain. Patient received 40 mg of IV Lasix. Dr. Mauro updated on symptoms and test results and accepts patient Discharge Plan Departure Patient Disposition: Admitted As Inpatient Clinical Impression: Congestive heart failure Discharge Date/Time: 07/03/19 17:41 Admit Date/Time: 07/03/19 17:06 Admit Provider: Shannon Mauro
[2019-07-03 17:11] LABS: B Type Natriuretic Peptide 163 (<100)
[2019-07-03 17:18] LABS: Magnesium 2.3 mg/dL (1.6-2.3)
--- NOTE | 2019-07-03 18:25 | PC.ADMIT ---
Admitted to from ER. Transferred via wheelchair. A/O, reports 2-3/10 pain in abdomen/right hip. Short of breath with exertion, O2 via NC. Oriented to room/call light. Urinal at bedside. [address] Admission Note: The patient,Gavin Rucker,69 y/o, was given written information regarding hospital policies, unit procedures and contact persons. Patient's smoking status: Former smoker. Vital Signs - 8 hr 07/03/19 15:06 07/03/19 15:52 07/03/19 15:54 Temperature 97.9 F Pulse Rate 90 85 79 Respiratory Rate 24 26 H 16 Blood Pressure 121/67 Pulse Oximetry 93 92 96 07/03/19 17:40 Temperature 98.0 F Pulse Rate 83 Respiratory Rate 22 Blood Pressure 127/63 Pulse Oximetry 93
--- NOTE | 2019-07-03 23:52 | PM.HP.1 ---
History of Present Illness History of Present Illness Date Patient Seen: 07/03/19 Time Patient Seen: 23:32 Chief complaint: SOB Narrative: The patient is a 69-year-old male with PMH of CAD (h/o embolic NH, s/p stenting 02/2011), HTN, COPD, (s/p TAVR, 07/13/2016), L-BBB, BiV AICD (04/2012), DM, HLD, BPH, OA, depression, h/o gout. Known to have prior history of tobacco use. Patient presented to the ED on 07/03/2019 out of concern for dyspnea. Reports symptom onset to be 3 days however is worth noting the patient was seen in the ED on 06/16/2019 and treated for acute COPD exacerbation with azithromycin and a tapering course of prednisone. After finishing the aforementioned medication patient notes improvement in symptoms for 2-3 days before he becomes short of breath once again. Associated symptoms include wheezing, exertional dyspnea (unable to walk more than 20 ft), lightheadedness, and peripheral edema. Patient reports weight gain of 10 lb over the past 4 days. He denies cough or increased phlegm production. Denies orthopnea. Patient does use oxygen on occasion, however has been wearing oxygen more frequently over the past couple of weeks. Denies chest pain, abdominal pain, nausea, vomiting, and syncopal events. He does endorse worsening fatigue. Notes overall debility and deconditioning, which he attributes to hip fractures and falls since December. Patient states that he has had an ablation for atrial fibrillation and a change/upgrade of his AICD in the past month. Reports adherence with prescribed medication regimen. His medications are managed by his daughter. States that his medication regimen was adjusted by outpatient primary care in February of 2019. Patient states that he does not follow with cardiology routinely. Patient is anti-coagulated with Eliquis. Patient History Medical History Cardiac defibrillator in place (Acute) CHF (congestive heart failure) (Acute) COPD (chronic obstructive pulmonary disease) (Acute) Prediabetes (Acute) Right femoral fracture (Acute) Surgical History S/P TAVR (transcatheter aortic valve replacement) (Acute) Social History household members: family Smoking Status: Former smoker alcohol intake: former Family & Social History Family History Mother No known health problems Father No known health problems Social History: household members family Safety & Behavioral: Feels Safe in Current Yes Environment Been Physically Hurt or No Threatened By a Person Suicidal Ideation Description None Tobacco & Substance use: Smoking Status Former smoker alcohol intake former alcohol intake frequency a few times a month Substance Use Type does not use Meds Home Medications and Allergies Home Medications Medication Instructions Recorded Confirmed Type spironolactone 25 mg PO DAILY #0 03/04/11 07/03/19 History potassium chloride 20 meq PO DAILY #0 07/26/11 07/03/19 History albuterol sulfate 2 puff INHALATION Q4-6H PRN 06/03/18 07/03/19 History budesonide 0.25 mg INHALATION Q12H 06/03/18 07/03/19 History colchicine See Rx Instructions .ROUTE 06/03/18 07/03/19 History .COMPLEX PRN oxycodone 5 mg PO Q6H PRN 06/03/18 07/03/19 History pravastatin 40 mg PO DAILY 06/03/18 07/03/19 History allopurinol 100 mg PO DAILY PRN 12/24/18 07/03/19 History codeine-guaifenesin [Cheratussin 5 ml PO Q4H PRN 12/24/18 07/03/19 History AC] diazepam 5 mg PO TID PRN 12/24/18 07/03/19 History lisinopril 5 mg PO DAILY 12/24/18 07/03/19 History loratadine 10 mg PO DAILY 12/24/18 07/03/19 History terazosin 6 mg PO BEDTIME 12/24/18 07/03/19 History torsemide 20 mg PO QPM 12/24/18 07/03/19 History torsemide 40 mg PO QAM 12/24/18 07/03/19 History acetaminophen 500 mg PO TID PRN 06/16/19 07/03/19 History albuterol sulfate 2.5 mg INHALATION Q4H PRN 06/16/19 07/03/19 History apixaban [Eliquis] 5 mg PO BID 06/16/19 07/03/19 History calcium carbonate 1,500 mg PO DAILY 06/16/19 07/03/19 History cholecalciferol (vitamin D3) 1,000 unit PO DAILY 06/16/19 07/03/19 History [Vitamin D3] glipizide 2.5 mg PO DAILY 06/16/19 07/03/19 History metoprolol succinate 25 mg PO DAILY 06/16/19 07/03/19 History citalopram 40 mg PO DAILY 07/03/19 07/03/19 History prednisone See Rx Instructions .ROUTE .COMPLEX 07/03/19 07/03/19 History Allergies Allergy/AdvReac Type Severity Reaction Status Date / Time amoxicillin Allergy Intermediate Hives Verified 07/03/19 16:18 ciprofloxacin [From Cipro] Allergy Intermediate Rash Verified 07/03/19 16:18 Review of Systems Review of Systems ROS Unobtainable: All systems reviewed & are unremarkable except as noted in HPI and below Exam Vital Signs (past 8 hours): - 07/03/19 15:54 07/03/19 17:40 07/03/19 20:21 Temperature 98.0 F 97.7 F Pulse Rate 79 83 81 Respiratory Rate 16 22 18 Blood Pressure 127/63 117/66 Pulse Oximetry 96 93 96 Oxygen Delivery Method Room Air Narrative Exam Narrative: Constitutional: Apparent moderate respiratory distress Neurologic: Awake, alert, oriented to person, place, time and reason for hospital admission No focal neurological deficits noted Head: NC, AT Eyes: Pupils equal and reactive. Extraocular movements intact. No scleral icterus. Ears: external ears normal, no otorrhea, very hard of hearing Nose: external nose normal, no rhinorrhea or epistaxis Throat: MMM, oropharynx w/o exudate Neck: no masses, lymphadenopathy, or JVD Chest / Respiratory: Bilateral expiratory wheezing. Tachypnea. Mild dyspnea. On supplemental oxygen. Heart / CV: S1-S2 Abdomen / GI: round, mild epigastric tenderness with palpation, round and distended, + BS : no suprapubic tenderness, no CVA tenderness Peripheral / Vascular: warm to touch, DP and PT pulses palpable There is edema in left lower extremity 2+ and no edema of right lower extremity Patient states there is discomfort with calf palpation of both extremities, however left appears worse than right Musc: Diminished ROM in strength of both upper and lower extremities Skin: no ecchymosis or suspicious lesions / ulcers Objective Labs Result Diagrams: 07/03/19 15:30 07/04/19 05:55 Labs: Laboratory Results - last 24 hr 07/03/19 07/03/19 07/03/19 15:30 15:30 15:30 WBC 8.9 RBC 4.12 L Hgb 11.8 L Hct 35.8 L MCV 86.9 MCH 28.7 MCHC 33.0 RDW 17.2 H Plt Count 148 L Neut % (Auto) 77.9 H Lymph % (Auto) 10.2 L [place] % (Auto) 9.0 Eos % (Auto) 2.3 Baso % (Auto) 0.6 Neut # (Auto) 7000 Lymph # (Auto) 900 L [place] # (Auto) 800 Eos # (Auto) 200 Baso # (Auto) 100 Sodium 135 L Potassium 4.9 Chloride 90 L Carbon Dioxide 36 H BUN 49 H Creatinine 1.40 H Estimated GFR 50.2 L BUN/Creatinine Ratio 35.0 H Glucose 116 H Calcium 9.3 Magnesium Total Bilirubin 0.5 AST 26 ALT 26 Alkaline Phosphatase 82 Total Creatine Kinase 44 L CK-MB (CK-2) TNP CK-MB (CK-2) Rel Index TNP Troponin I 0.074 H B-Natriuretic Peptide 163 H Total Protein 7.2 Albumin 4.2 Globulin 3.0 Albumin/Globulin Ratio 1.4 Lipase 196 07/03/19 15:30 WBC RBC Hgb Hct MCV MCH MCHC RDW Plt Count Neut % (Auto) Lymph % (Auto) [place] % (Auto) Eos % (Auto) Baso % (Auto) Neut # (Auto) Lymph # (Auto) [place] # (Auto) Eos # (Auto) Baso # (Auto) Sodium Potassium Chloride Carbon Dioxide BUN Creatinine Estimated GFR BUN/Creatinine Ratio Glucose Calcium Magnesium 2.3 Total Bilirubin AST ALT Alkaline Phosphatase Total Creatine Kinase CK-MB (CK-2) CK-MB (CK-2) Rel Index Troponin I B-Natriuretic Peptide Total Protein Albumin Globulin Albumin/Globulin Ratio Lipase Assessment & Plan Assessment & Plan narrative: COPD exacerbation w/ hypoxemia, acute on chronic, present on admission, active - Consult RT, eval / treat - Supplemental O2, titrate for SpO2 goal of 88-92% - Obtain baseline ABG STAT re: severe exacerbation w/ potential for decompensation reviewed pH 7.33 pCO2 56.8 HCO3- 30... Compensated respiratory acidosis - DuoNeb Q4H scheduled, patient requires aggressive bronchodilators at this time - Hold off on empiric therapy, recently completed a course of azithromycin - CBC, BMP, Trop, and BNP WNL, will need to obtain BMP and Mg periodically in the setting of frequent albuterol treatments - Respiratory viral panel (STAT) and Sputum cx (if able), lactate and procalcitonin level CRISTIAN, present on admission, active Cr 1.4 (baseline 0.9 to 1.2), multi-factorial... 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 On exam does not appear to be in volume excess. - Received 40 mg of IV Lasix in the ED this afternoon. Will give patient another 1 time 60 mg IV dose of Lasix. Will be cautious with aggressive diuresis. Re-evaluate volume status in am. - Daily weight. Strict I/Os - On BB, has been resumed. Lisinopril, spironolactone, being held d/t CRISTIAN. - Echo in am Type II NH, in the setting of ischemic imbalance / acute respiratory decompensation, acute, present on admission, active - Trop 0.074, continue trending - No EKG available for review, STAT EKG - Patient denies chest pain and anginal like symptoms. - Continue low-dose aspirin. Hold pravastatin secondary to CRISTIAN. DM 2T, non-insulin dependent, chronic condition, present on admission, stable Diabetic control is not known. 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 - Check A1C level - Resume POUNCER MACHINE glipizide regimen - Glu POC AC/HS, low dose SSI prn Microcytic anemia, chronic condition, present on admission, stable -continue trending hemoglobin level with daily labs. No active symptoms of bleeding. Patient is on Eliquis and aspirin. History of paroxysmal atrial fibrillation, subacute, stable Patient has recently undergone AV node ablation on 05/08/2019. At that time also started on Toprol XL 50 mg BID. Visit summary from most recent outpatient visit with primary care on 06/26/2019 notes patient to be free of chest pain, exertional dyspnea, lightheadedness, and lower extremity edema. - Notes exertional dyspnea, unilateral LLE edema on exam, and lightheadedness - Resume POUNCER MACHINE Eliquis for anticoagulation - Will resume Toprol XL 50 mg BID. Toprol XL is cardioselective BB. - LLE venous duplex to r/o DVT Code status discussed with patient. Wishes to be DNR. Designates daughter is proxy decision maker. VT prophylaxis with Eliquis. Home meds reviewed and reconciled accordingly.
[2019-07-04] VITALS (20 sets, daily range): BP systolic 117–127; BP diastolic 51–75; PULSE 68–96; RESP 12–24; TEMP 23.3–37.2; O2SAT 90–96
[2019-07-04] MEDS: FUROSEMIDE 40 MG/4 ML VIAL 60 MG IV (00:10)
[2019-07-04] MEDS: ACETAMINOPHEN 325 MG TABLET 650 MG PO ×3 (00:11→19:41)
--- NOTE | 2019-07-04 00:27 | DI.ECHO.S_ITS ---
[facility] +---------+ : : [address] : [address] : : : : [id number] : : : : Phone: [phone]+ Echocardiogram Report + + :Name: YONI WILSON Study Date: 07/04/2019 Height: 67 in : :[facility] Weight: 218 lb : : Gender: Male BSA: 2.1 m2 : :: 1950 Age: 69 yrs BP: 126/67 mmHg: :Reason For Study: Dyspnea, Heart Failure : :Ordering Physician: Eddi : :Hospitalist Performed By: Bina Corona : :Referring: GABI MADRIGAL : + + Interpretation Summary 1) Severely enlarged left ventricle with moderately to severely reduced function (EF 30-35%). 2) Mid-apical inferior wall akinesis. Septal bounce due to pacemaker activation present. 3) Grossly normal right ventricular size with low normal function. 4) There is a bioprosthetic aortic valve that is well seated and functioning well. Expected gradient across the bioprothetic aortic valve. 5) Compared to the Echo done 01/15/2019, LVEF is more enlarged and LVEF has decreased from 35-40% to 30-35% on this study. Procedure: A two-dimensional transthoracic echocardiogram with color flow and Doppler was performed. A contrast injection of Definity was performed to improve assessment of LV function. The study quality was technically difficult. Comparison is made with the echocardiogram of 01/15/2019. The patient was in normal sinus rhythm during the exam. The patient had frequent PVCs during the exam. Left Ventricle: The left ventricle is severely dilated. Left ventricular wall thickness is normal. There is no ventricular septal defect visualized. The ejection fraction is estimated to be 30-35%. Left ventricular systolic function is moderate to severely reduced. Mid-apical inferior wall akinesis. Septal bounce due to pacemaker activation present. Right Ventricle: There is a pacemaker lead in the right ventricle. Grossly normal right ventricular size with low normal function. Atria: Both atria are severely dilated. There is no Doppler evidence for an interatrial shunt. Mitral Valve: There is mild to moderate mitral annular calcification. There is trace mitral regurgitation. Aortic Valve: There is a bioprosthetic aortic valve. The prosthetic aortic valve is well-seated. The prosthetic aortic valve is not well visualized. The gradients through the prosthetic aortic valve are within the normal range for this type of valve. No aortic regurgitation is present. Tricuspid Valve: The tricuspid valve is not well visualized. There is a trace or physiologic amount of tricuspid regurgitation. Pulmonary artery pressures cannot be estimated because of the lack of a measurable TR jet velocity. Pulmonic Valve: The pulmonic valve is not well seen, but is grossly normal. There is a trace or physiologic amount of pulmonic regurgitation. Great Vessels: The aortic root is not well visualized. The ascending aorta is mildly enlarged. The IVC is of normal diameter and collapses greater than 50% with a sniff. This suggests a low right atrial pressure of 3 mm Hg. Pericardium/ Pleura There is no pericardial effusion. MMode/2D Measurements & Calculations LVIDd: 7.5 cm LVOT diam: 2.3 cm LVIDs: 5.7 cm asc Aorta Diam: 3.6 cm FS: 24.5 % IVSd: 0.92 cm LVPWd: 0.76 cm LV calvin. diameter/BSA (cm/m^2): 3.6 LV sys. diameter/BSA (cm/m^2): 2.7 LA A2 area: 29.9 cm2 RA long axis: 5.5 cm LA A4 area: 30.6 cm2 RA area: 23.9 cm2 LA length (vol): 5.9 cm RA vol: 87.8 ml LA vol: 132.9 ml RA : 41.8 ml/m2 LA vol index: 63.4 ml/m2 IVC diam: 1.8 cm RVD1 (basal): 4.1 cm TAPSE: 2.0 cm Doppler Measurements & Calculations Ao V2 max: 190.7 cm/sec LVOT Max Yovanny: 84.0 cm/sec Ao V2 mean: 127.9 cm/sec LV V1 max P.8 mmHg Ao max P.6 mmHg LV V1 VTI: 16.7 cm Ao mean P.7 mmHg PAWAN(I,D): 1.7 cm2 Ao V2 VTI: 40.1 cm PAWAN(V,D): 1.8 cm2 sev ratio: 0.42 PAWAN indexed to BSA (cm^2/m^2): 0.83 MV E max yovanny: 80.2 cm/sec PA V2 max: 75.7 cm/sec MV A max yovanny: 95.8 cm/sec PA V2 mean: 55.1 cm/sec MV E/A: 0.84 PA mean P.3 mmHg Med Peak E' Yovanny: 4.9 cm/sec PA pr(Accel): 20.4 mmHg E/E' med: 16.2 Lat Peak E' Yovanny: 4.9 cm/sec E/E' lat: 16.2 E/e' average: 16.2 MV dec time: 0.27 sec MV P1/2t: 79.5 msec MV P1/2t max yovanny: 80.2 cm/sec SV(LVOT): 70.0 ml MVA(P1/2t): 2.8 cm2 Reading Physician:02:01 PM
[2019-07-04 01:04] LABS: Lactate (Lactic Acid) 1.3 mmol/L (0.7-2.1)
[2019-07-04 01:16] LABS: Troponin I 0.084 ng/mL (0.01-0.034)
[2019-07-04 01:23] LABS: Procalcitonin < 0.05 ng/mL (<0.5)
--- NOTE | 2019-07-04 02:05 | DI.US.S_ITS ---
PROCEDURE: US PERIPH VENOUS LOW EXTREM LT INDICATIONS: EDEMA TECHNIQUE: Real-time imaging, as well as color and pulse Doppler interrogation, were performed of the lower extremity deep veins from the inguinal ligament to the popliteal fossa. COMPARISON: None. FINDINGS: The common femoral, femoral and popliteal veins are normally compressible, and free of intraluminal thrombus. Color and pulse Doppler demonstrate normal phasic intraluminal flow. There is normal augmentation response to distal compression maneuver. IMPRESSION: No DVT in the left lower extremity.. Dictated by: Yesi Basilio M.D. on 07/04/2019 at 20:19 Approved by: Yesi Basilio M.D. on 07/04/2019 at 20:20
[2019-07-04] MEDS: ALBUTEROL/IPRATROPIUM 3 ML AMPUL INH ×5 (02:09→22:54)
[2019-07-04 02:27] LABS: Adenovirus Not Detected (Not Detect); Coronavirus 229E Not Detected (Not Detect); Coronavirus HKU1 Not Detected (Not Detect)
[2019-07-04 02:28] LABS: Bordetella pertussis Not Detected (Not Detect); Chlamydophila pneumoniae Not Detected (Not Detect); Coronavirus NL 63 Not Detected (Not Detect); Coronavirus OC43 Not Detected (Not Detect); Human Metapneumovirus Not Detected (Not Detect); Human Rhinovirus/Enterovirus Not Detected (Not Detect); Influenza A Not Detected (Not Detect); Influenza B Not Detected (Not Detect); Mycoplasma pneumoniae Not Detected (Not Detect); Parainfluenza Virus 1 Not Detected (Not Detect); Parainfluenza Virus 2 Not Detected (Not Detect); Parainfluenza Virus 3 Not Detected (Not Detect); Parainfluenza Virus 4 Not Detected (Not Detect); Respiratory Syncytial Virus Not Detected (Not Detect)
[2019-07-04 02:36] LABS: Fractionated Inspired Oxygen 28; HCO3 ABG 36 mmol/L (22-26); Oxygen Saturation ABG 98 % (95-100); PCO2 ABG 60.2 mmHg (35-45); PO2 ABG 116 mmHg (80-100); TCO2 ABG 38 mmol/L (21-31); pH ABG 7.39 (7.35-7.45)
[2019-07-04 06:13] LABS: D Dimer 201 ng/mL (<230)
[2019-07-04 06:14] LABS: Hemoglobin A1C% w Est Avg Glu 6.8 % (4.0-6.0)
[2019-07-04 07:37] LABS: BUN Creatinine Ratio 34.6 (6-22); Blood Urea Nitrogen 45 mg/dL (9-20); Calcium 9.3 mg/dL (8.4-10.2); Carbon Dioxide 37 mmol/L (22-32); Chloride 90 mmol/L (98-107); Creatine Kinase 38 U/L (55-170); Estimated Glomerular Filt Rate 54.7 mL/min (>60); Glucose 150 mg/dL (80-110); HEMOLYSIS < 15 (0-50); Potassium 4.2 mmol/L (3.4-5.1); Sodium 137 mmol/L (137-145)
[2019-07-04 07:49] LABS: Troponin I 0.077 ng/mL (0.01-0.034)
--- NOTE | 2019-07-04 08:38 | PC.NURSE ---
Addendum entered by Leif Lewis R.N. 07/04/19 12:39: Pt sleeping at present. Original Note: Pt awakes with request to go to BR for BM. Pt then fell right back to sleep. Rewoke 15 minutes later and up to BR with SBA and walker. Pt fairly steady gait. Presently up in chair for b'fast.
[2019-07-04] MEDS: METOPROLOL ER 25 MG TABLET PO (09:55)
[2019-07-04] MEDS: APIXABAN 5 MG TABLET PO ×2 (09:56→20:32)
--- NOTE | 2019-07-04 14:44 | PM.PN.1 ---
Subjective Subjective Date Patient Seen: 07/04/19 Interval history: Gavin Rucker is a 69-year-old male with a past medical history signifcant for CAD status post embolic NH and stenting 02/2011, hypertension, hyperlipidemia, paroxysmal atrial fibrillation on Eliquis, diabetes mellitus type II, non-insulin using, COPD, aortic stenosis status post TAVR 07/13/2016, LBBB, BiV AICD 04/2012, BPH, OA, depression, and gout who presented to the ED due to worsening dyspnea. The patient is sitting upright in bed and appears comfortable. He continues to endorse shortness of breath which is chronic and he feels is improved and close to his baseline. Discussed the patient's congestive heart failure, advanced COPD and chronic kidney disease in detail. The patient has oxygen at home but does not wear it at night due to difficulty with moving his compressor from down stairs to his bedroom upstairs. His ABG demonstrated hypercarbia for which is likely chronic and he is currently compensating but he would benefit from a BiPAP. He is scheduled for a sleep study in the near future. He has not tolerated BiPAP in the past but is willing to trial a BiPAP tonight and if tolerated we will acquire a BiPAP for home use. He denies headache, chest pain, abdominal pain, nausea, vomiting, fever, chills, dysuria, diarrhea or constipation. He is voiding and eliminating without difficulty. He is up ambulating with assistance. Exam Vital Signs (past 8 hours): - 07/04/19 08:15 07/04/19 09:55 07/04/19 10:00 Temperature 98.2 F Pulse Rate 86 86 Respiratory Rate 14 Blood Pressure 125/67 126/67 Pulse Oximetry 95 93 07/04/19 11:50 07/04/19 12:20 07/04/19 14:39 Temperature 98.3 F Pulse Rate 68 82 78 Respiratory Rate 18 24 Blood Pressure 121/75 117/71 Pulse Oximetry 96 94 Oxygen Delivery Method Nasal Cannula Oxygen Flow Rate 2 Narrative Exam Narrative: General: Older gentleman sitting in bed and in no acute distress, appears older than stated age and chronically, well-developed, well-nourished, appropriately interactive. HEENT: Normocephalic, atraumatic. External ears without defect. Pupils equal, round, and reactive to light. Anicteric sclerae, moist conjunctivae, and no lid lag. Oropharynx free of erythema and cobble stoning with moist mucosa. Neck: Supple with full range of motion. No jugular venous distension. No bruits. No lymphadenopathy or thyromegaly. Cardiovascular: Regular rhythm and rate without murmurs, rubs, or gallops appreciated Pulmonary: Coarse breath sounds throughout. No wheeze. Normal respiratory effort with no use of accessory muscles. Abdomen: Soft, bowel sounds present, nontender, nondistended. No hepatosplenomegaly or masses appreciated. Extremities: No clubbing, cyanosis, or edema. Skin: Normal temperature, turgor, and texture; no rash, ulcers, or subcutaneous nodules appreciated. Neurological: Cranial nerves grossly intact. Psychiatric: Normal mood and affect. Alert and oriented to person, place, and time. Objective Labs Result Diagrams: 07/03/19 15:30 07/05/19 05:25 Labs: Laboratory Results - last 24 hr 07/03/19 07/03/19 07/03/19 15:30 15:30 15:30 WBC 8.9 RBC 4.12 L Hgb 11.8 L Hct 35.8 L MCV 86.9 MCH 28.7 MCHC 33.0 RDW 17.2 H Plt Count 148 L Neut % (Auto) 77.9 H Lymph % (Auto) 10.2 L [place] % (Auto) 9.0 Eos % (Auto) 2.3 Baso % (Auto) 0.6 Neut # (Auto) 7000 Lymph # (Auto) 900 L [place] # (Auto) 800 Eos # (Auto) 200 Baso # (Auto) 100 D-Dimer ABG pH ABG pCO2 ABG pO2 ABG HCO3 ABG Total CO2 ABG O2 Saturation ABG Base Excess FiO2 Sodium 135 L Potassium 4.9 Chloride 90 L Carbon Dioxide 36 H BUN 49 H Creatinine 1.40 H Estimated GFR 50.2 L BUN/Creatinine Ratio 35.0 H Glucose 116 H Hemoglobin A1c Lactate Calcium 9.3 Magnesium Total Bilirubin 0.5 AST 26 ALT 26 Alkaline Phosphatase 82 Total Creatine Kinase 44 L CK-MB (CK-2) TNP CK-MB (CK-2) Rel Index TNP Troponin I 0.074 H B-Natriuretic Peptide 163 H Total Protein 7.2 Albumin 4.2 Globulin 3.0 Albumin/Globulin Ratio 1.4 Lipase 196 Procalcitonin Chlamy pneumoniae PCR Adenovirus (PCR) B.parapertussis DNA PCR Coronavirus OC43 (PCR) Coronavirus HKU1 (PCR) Coronavirus 229E (PCR) Coronavirus NL63 (PCR) Human Metapneumovir PCR Influenza Type A (PCR) Influenza Type B (PCR) M. pneumoniae (PCR) Parainfluenza 1 (PCR) Parainfluenza 2 (PCR) Parainfluenza 3 (PCR) Parainfluenza 4 (PCR) RSV (PCR) Entero/Rhino (PCR) 07/03/19 07/04/19 07/04/19 15:30 00:45 00:45 WBC RBC Hgb Hct MCV MCH MCHC RDW Plt Count Neut % (Auto) Lymph % (Auto) [place] % (Auto) Eos % (Auto) Baso % (Auto) Neut # (Auto) Lymph # (Auto) [place] # (Auto) Eos # (Auto) Baso # (Auto) D-Dimer ABG pH ABG pCO2 ABG pO2 ABG HCO3 ABG Total CO2 ABG O2 Saturation ABG Base Excess FiO2 Sodium Potassium Chloride Carbon Dioxide BUN Creatinine Estimated GFR BUN/Creatinine Ratio Glucose Hemoglobin A1c Lactate Calcium Magnesium 2.3 Total Bilirubin AST ALT Alkaline Phosphatase Total Creatine Kinase CK-MB (CK-2) CK-MB (CK-2) Rel Index Troponin I 0.084 H B-Natriuretic Peptide Total Protein Albumin Globulin Albumin/Globulin Ratio Lipase Procalcitonin < 0.05 Chlamy pneumoniae PCR Adenovirus (PCR) B.parapertussis DNA PCR Coronavirus OC43 (PCR) Coronavirus HKU1 (PCR) Coronavirus 229E (PCR) Coronavirus NL63 (PCR) Human Metapneumovir PCR Influenza Type A (PCR) Influenza Type B (PCR) M. pneumoniae (PCR) Parainfluenza 1 (PCR) Parainfluenza 2 (PCR) Parainfluenza 3 (PCR) Parainfluenza 4 (PCR) RSV (PCR) Entero/Rhino (PCR) 07/04/19 07/04/19 07/04/19 00:45 00:45 00:55 WBC RBC Hgb Hct MCV MCH MCHC RDW Plt Count Neut % (Auto) Lymph % (Auto) [place] % (Auto) Eos % (Auto) Baso % (Auto) Neut # (Auto) Lymph # (Auto) [place] # (Auto) Eos # (Auto) Baso # (Auto) D-Dimer ABG pH ABG pCO2 ABG pO2 ABG HCO3 ABG Total CO2 ABG O2 Saturation ABG Base Excess FiO2 Sodium Potassium Chloride Carbon Dioxide BUN Creatinine Estimated GFR BUN/Creatinine Ratio Glucose Hemoglobin A1c 6.8 H Lactate 1.3 Calcium Magnesium Total Bilirubin AST ALT Alkaline Phosphatase Total Creatine Kinase CK-MB (CK-2) CK-MB (CK-2) Rel Index Troponin I B-Natriuretic Peptide Total Protein Albumin Globulin Albumin/Globulin Ratio Lipase Procalcitonin Chlamy pneumoniae PCR Not detected Adenovirus (PCR) Not detected B.parapertussis DNA PCR Not detected Coronavirus OC43 (PCR) Not detected Coronavirus HKU1 (PCR) Not detected Coronavirus 229E (PCR) Not detected Coronavirus NL63 (PCR) Not detected Human Metapneumovir PCR Not detected Influenza Type A (PCR) Not detected Influenza Type B (PCR) Not detected M. pneumoniae (PCR) Not detected Parainfluenza 1 (PCR) Not detected Parainfluenza 2 (PCR) Not detected Parainfluenza 3 (PCR) Not detected Parainfluenza 4 (PCR) Not detected RSV (PCR) Not detected Entero/Rhino (PCR) Not detected 07/04/19 07/04/19 07/04/19 02:15 05:55 05:55 WBC RBC Hgb Hct MCV MCH MCHC RDW Plt Count Neut % (Auto) Lymph % (Auto) [place] % (Auto) Eos % (Auto) Baso % (Auto) Neut # (Auto) Lymph # (Auto) [place] # (Auto) Eos # (Auto) Baso # (Auto) D-Dimer 201 ABG pH 7.39 ABG pCO2 60.2 H ABG pO2 116 H ABG HCO3 36 H ABG Total CO2 38 H ABG O2 Saturation 98 ABG Base Excess 11.0 H FiO2 28 Sodium Potassium Chloride Carbon Dioxide BUN Creatinine Estimated GFR BUN/Creatinine Ratio Glucose Hemoglobin A1c Lactate Calcium Magnesium Total Bilirubin AST ALT Alkaline Phosphatase Total Creatine Kinase 38 L CK-MB (CK-2) TNP CK-MB (CK-2) Rel Index TNP Troponin I 0.077 H B-Natriuretic Peptide Total Protein Albumin Globulin Albumin/Globulin Ratio Lipase Procalcitonin Chlamy pneumoniae PCR Adenovirus (PCR) B.parapertussis DNA PCR Coronavirus OC43 (PCR) Coronavirus HKU1 (PCR) Coronavirus 229E (PCR) Coronavirus NL63 (PCR) Human Metapneumovir PCR Influenza Type A (PCR) Influenza Type B (PCR) M. pneumoniae (PCR) Parainfluenza 1 (PCR) Parainfluenza 2 (PCR) Parainfluenza 3 (PCR) Parainfluenza 4 (PCR) RSV (PCR) Entero/Rhino (PCR) 07/04/19 05:55 WBC RBC Hgb Hct MCV MCH MCHC RDW Plt Count Neut % (Auto) Lymph % (Auto) [place] % (Auto) Eos % (Auto) Baso % (Auto) Neut # (Auto) Lymph # (Auto) [place] # (Auto) Eos # (Auto) Baso # (Auto) D-Dimer ABG pH ABG pCO2 ABG pO2 ABG HCO3 ABG Total CO2 ABG O2 Saturation ABG Base Excess FiO2 Sodium 137 Potassium 4.2 Chloride 90 L Carbon Dioxide 37 H BUN 45 H Creatinine 1.30 H Estimated GFR 54.7 L BUN/Creatinine Ratio 34.6 H Glucose 150 H Hemoglobin A1c Lactate Calcium 9.3 Magnesium Total Bilirubin AST ALT Alkaline Phosphatase Total Creatine Kinase CK-MB (CK-2) CK-MB (CK-2) Rel Index Troponin I B-Natriuretic Peptide Total Protein Albumin Globulin Albumin/Globulin Ratio Lipase Procalcitonin Chlamy pneumoniae PCR Adenovirus (PCR) B.parapertussis DNA PCR Coronavirus OC43 (PCR) Coronavirus HKU1 (PCR) Coronavirus 229E (PCR) Coronavirus NL63 (PCR) Human Metapneumovir PCR Influenza Type A (PCR) Influenza Type B (PCR) M. pneumoniae (PCR) Parainfluenza 1 (PCR) Parainfluenza 2 (PCR) Parainfluenza 3 (PCR) Parainfluenza 4 (PCR) RSV (PCR) Entero/Rhino (PCR) Assessment & Plan Assessment & Plan narrative: Gavin Rucker is a 69-year-old male with a past medical history signifcant for CAD status post embolic NH and stenting 02/2011, hypertension, hyperlipidemia, paroxysmal atrial fibrillation on Eliquis, diabetes mellitus type II, non-insulin using, COPD, aortic stenosis status post TAVR 07/13/2016, LBBB, BiV AICD 04/2012, BPH, OA, depression, and gout who presented to the ED due to worsening dyspnea. 1. Acute on chronic hypoxemic and hypercarbic respiratory failure, secondary to advanced COPD, present on admission. Active. -Does not represent an acute COPD exacerbation. -respiratory viral PCR negative. -Consult respiratory therapy for evaluation and treatment. Continue supplemental oxygen for goal oxygen saturation 88-92%. Moved patient to ICU for trial of BiPAP this evening as patient has not tolerated this well in the past. Patient requires nocturnal and daytime ventilation due to severity of COPD. Obstructive sleep apnea is not the primary cause for the patient's hypercapnia and ordering noninvasive ventilator to treat the patient's chronic respiratory failure. -ABG demonstrated compensated respiratory acidosis with metabolic alkalosis pH 7.39, pCO2 60.2, PO2 116, HC03 36, SpO2 98% on FiO2 0.28. -Continue DuoNebs every 4 hours and albuterol every 2 hours as needed for shortness of breath. 2. Acute systolic congestive heart failure exacerbation, present on admission. Resolving. -Patient presented with progressive worsening dyspnea. -BNP 163 and chest x-ray suggestive of mild CHF on imaging. -Echocardiogram demonstrated severely enlarged left ventricle with moderately to severely reduced function (EF 30-35%), mid-apical inferior wall akinesis, septal bounce due to pacemaker activation present, grossly normal right ventricular size with low normal function, and bioprosthetic aortic valve that is well seated and functioning well. Compared to the Echo done 01/15/2019, LVEF is more enlarged and LVEF has decreased from 35-40% to 30-35% on this study. -Received furosemide 40 mg IV in the ED. Received another dose of furosemide 60 mg IV upon admission. Will be cautious with aggressive diuresis (received furosemide 100 mg IV total and 24 hours) and hold off on diuresis today and restart home regimen of torsemide 40 mg in the morning and 20 mg in the evening tomorrow. Continue to monitor electrolytes closely and replete as necessary. -Continue strict I&O and daily weights. Net -4L. -Continue cardiac medications including: metoprolol succinate 25 mg daily and restarted lisinopril 5 mg daily, pravastatin 40 mg daily, and spironolactone 25 mg daily (initially held due to CRISTIAN). 3. Possible acute kidney injury, present on admission. Active. -Initial creatinine 1.4. Baseline appears to be 0.9-1.2. This may represent new baseline function versus CRISTIAN. If CRISTIAN it is multifactorial and secondary to acute respiratory decompensation, renal hypoperfusion due to hypervolemia, and medications that can potentially be nephrotoxic. -Avoid nephrotoxic agents. Initially held home medications with predisposition towards nephrotoxicity (i.e. allopurinol, lisinopril, spironolactone, and torsemide). Will be cautious with aggressive diuresis (received furosemide 100 mg IV total and 24 hours) and hold off on diuresis today and restart home regimen of torsemide 40 mg in the morning and 20 mg in the evening tomorrow. -Continue to optimize renal perfusion, avoid hypotension. -Continue to monitor renal function and electrolytes closely. 4. Acute type II NH, secondary to demand ischemia from decreased perfusion due to hypovolemia and acute respiratory decompensation, present on admission. -Initial troponin 0.074 which tranded up to 0.084 continue trending -Patient denies chest pain and anginal like symptoms. - Continue low-dose aspirin. Hold pravastatin secondary to CRISTIAN. 5. Diabetes mellitus type 2, non-insulin using, chronic, present on admission. Stable. -Hemoglobin A1c 6.8% indicative of good control. -Continue glipizide 2.5 mg daily. -Continue [facility] blood glucose checks and heart healthy/carbohydrate consistent diet. Will consider adding on low-dose correctional scale insulin to cover if glucose levels significantly elevated. 6. Normocytic anemia of chronic disease, present on admission. Stable. -Initial hemoglobin 11.9 which is the best his blood counts have been for some time. -No active symptoms of bleeding. Patient is on Eliquis and aspirin. -Continue trending blood counts periodically. 7. Paroxysmal atrial fibrillation status post cardiac ablation on Eliquis, present on admission. Stable. -Patient has recently undergone AV node ablation on 05/08/2019 and started on metoprolol succinate 50 mg twice daily. -Notes exertional dyspnea, unilateral LLE edema on exam, and lightheadedness. Venous Doppler ultrasound of left lower extremity negative for DVT. -Currently in sinus rhythm. Continue metoprolol succinate 50 mg twice daily. -Continue Eliquis 5 mg twice daily for VTE prophylaxis. Disposition: Patient likely to discharge in 1-2 days depending on response to diuresis and improvement in acute on chronic respiratory failure.
[2019-07-04] MEDS: OXYCODONE IR 5 MG TABLET PO ×2 (15:52→23:47)
[2019-07-04] MEDS: SPIRONOLACTONE 25 MG TABLET PO (15:54)
[2019-07-04] MEDS: PRAVASTATIN 20 MG TABLET 40 MG PO (15:54)
--- NOTE | 2019-07-04 17:06 | PC.NURSE ---
Dr Mauro in to see patient, new order given to transfer to ICU as he needs to be on BiPap. 2L O2 sat 94%, he said he uses 2L at home except for at night. Voided 300 ml clear yellow urine. Remains on fluid restriction. I called [facility] [employer] and gave patient report, patient then transferred via wheelchair, all belongings sent with him. At time of transfer, patient is Ox3, aware of rationale for transfer. Sent down on RA, sats maintaining 94% on RA before leaving unit.
[2019-07-04] MEDS: TERAZOSIN 1 MG CAPSULE 6 MG PO (20:33)
[2019-07-04] MEDS: diazePAM 5 MG TABLET PO (20:37)
[2019-07-05] VITALS (12 sets, daily range): BP systolic 110–118; BP diastolic 54–61; PULSE 68–102; RESP 12–24; TEMP 32.3–36.8; O2SAT 90–98
--- NOTE | 2019-07-05 00:28 | PC.NURSE ---
starr note pt came to ICU for bipap due to rising CO2 levels. Pt not somnalent or drowsy on arrival. RT assisting with bipap. Pt tolerated 1.5 hours of bipap this shift.
[2019-07-05] MEDS: ALBUTEROL/IPRATROPIUM 3 ML AMPUL INH ×3 (02:06→12:34)
[2019-07-05 05:44] LABS: BUN Creatinine Ratio 31.4 (6-22); Blood Urea Nitrogen 44 mg/dL (9-20); Calcium 9.1 mg/dL (8.4-10.2); Carbon Dioxide 38 mmol/L (22-32); Chloride 94 mmol/L (98-107); Estimated Glomerular Filt Rate 50.2 mL/min (>60); Glucose 151 mg/dL (80-110); HEMOLYSIS < 15 (0-50); Magnesium 2.4 mg/dL (1.6-2.3); Sodium 136 mmol/L (137-145)
--- NOTE | 2019-07-05 06:21 | PC.NURSE ---
Patient used Bi-pap intermittently over night, tolerates 1hr at at time, otherwise on RA-4L NC with SpO2 ranging from 85%-97%, denies dyspnea, exp rhonchi/wheezes, R>L. 5mg Percolone given at midnight for Rt hip pain.
--- NOTE | 2019-07-05 06:22 | RT ---
Patient wore BIPAP most of the night and tolerated well. Did complain of his nose being sore inside despite very low pressures and humidification. Would like to try a Trilogy at home however. Patient currently on 2 liters with a sat of 90% keeping him in the 88% to 92% range.
[2019-07-05] MEDS: APIXABAN 5 MG TABLET PO (07:48)
[2019-07-05] MEDS: glipiZIDE 5 MG TABLET 2.5 MG PO (07:48)
[2019-07-05] MEDS: METOPROLOL ER 25 MG TABLET PO (07:49)
[2019-07-05] MEDS: OXYCODONE IR 5 MG TABLET PO ×2 (07:49→13:20)
[2019-07-05] MEDS: SODIUM CHLORIDE 0.9% FLUSH 10 ML IV (09:13)
[2019-07-05] MEDS: TORSEMIDE 10 MG TABLET 40 MG PO (09:13)
[2019-07-05] MEDS: PRAVASTATIN 20 MG TABLET 40 MG PO (09:26)
[2019-07-05] MEDS: LORATADINE 10 MG TABLET PO (09:33)
[2019-07-05] MEDS: SPIRONOLACTONE 25 MG TABLET PO (09:33)
--- NOTE | 2019-07-05 09:39 | PM.DS.1 ---
History of Present Illness History of Present Illness Date Patient Seen: 07/03/19 Chief complaint: SOB Narrative: Written by Stewart RIVERA: The patient is a 69-year-old male with PMH of CAD (h/o embolic DE, s/p stenting 02/2011), HTN, COPD, (s/p TAVR, 07/13/2016), L-BBB, BiV AICD (04/2012), DM, HLD, BPH, OA, depression, h/o gout. Known to have prior history of tobacco use. Patient presented to the ED on 07/03/2019 out of concern for dyspnea. Reports symptom onset to be 3 days however is worth noting the patient was seen in the ED on 06/16/2019 and treated for acute COPD exacerbation with azithromycin and a tapering course of prednisone. After finishing the aforementioned medication patient notes improvement in symptoms for 2-3 days before he becomes short of breath once again. Associated symptoms include wheezing, exertional dyspnea (unable to walk more than 20 ft), lightheadedness, and peripheral edema. Patient reports weight gain of 10 lb over the past 4 days. He denies cough or increased phlegm production. Denies orthopnea. Patient does use oxygen on occasion, however has been wearing oxygen more frequently over the past couple of weeks. Denies chest pain, abdominal pain, nausea, vomiting, and syncopal events. He does endorse worsening fatigue. Notes overall debility and deconditioning, which he attributes to hip fractures and falls since December. Patient states that he has had an ablation for atrial fibrillation and a change/upgrade of his AICD in the past month. Reports adherence with prescribed medication regimen. His medications are managed by his daughter. States that his medication regimen was adjusted by outpatient primary care in February of 2019. Patient states that he does not follow with cardiology routinely. Patient is anti-coagulated with Eliquis. Discharge Providers Provider Date of admission: 07/03/19 17:06 Discharge Date: 07/05/19 Primary care physician: Bobo Aden MD Consults: 07/03/19 18:18 Consult to Risk Control Field Representative Routine Comment: 07/04/19 00:35 Consult to Respiratory Therapy Evaluate & Treat Comment: copd exacerbation Physician Instructions: Evaluate and treat Discharge provider: Shannon Mauro DO Summary Hospital Course Discharge Diagnosis: 1. Acute on chronic hypoxemic and hypercarbic respiratory failure, secondary to advanced COPD, present on admission. Acute portion resolved. 2. Acute systolic congestive heart failure exacerbation, present on admission. Resolved. 3. Possible acute kidney injury vs. new chronic kidney disease stage II, present on admission. Active. 4. Acute type II DE, secondary to demand ischemia from decreased perfusion due to hypovolemia and acute respiratory decompensation, present on admission. Resolved. 5. Diabetes mellitus type II, non-insulin using, chronic, present on admission. Stable. 6. Normocytic anemia of chronic disease, present on admission. Stable. 7. Paroxysmal atrial fibrillation status post cardiac ablation on Eliquis, present on admission. Stable. Hospital Course: Gavin Rucker is a 69-year-old male with a past medical history signifcant for CAD status post embolic DE and stenting 02/2011, hypertension, hyperlipidemia, paroxysmal atrial fibrillation on Eliquis, diabetes mellitus type II, non-insulin using, COPD, aortic stenosis status post TAVR 07/13/2016, LBBB, BiV AICD 04/2012, BPH, OA, depression, and gout who presented to the ED due to worsening dyspnea. 1. Acute on chronic hypoxemic and hypercarbic respiratory failure, secondary to advanced COPD, present on admission. Acute portion resolved. -Does not represent an acute COPD exacerbation. -Respiratory viral PCR negative. -Consulted respiratory therapy for evaluation and treatment. Continued home continuous supplemental oxygen 2L with goal oxygen saturation 88-92%. Moved patient to ICU for trial of BiPAP which he tolerated well and reports he feels the best he has in a long time. Qualified patient for triology as he required nocturnal and daytime ventilation due to severity of COPD. Obstructive sleep apnea is not the primary cause for the patient's hypercapnia and ordered noninvasive ventilator to treat the patient's chronic respiratory failure. -ABG demonstrated compensated respiratory acidosis with metabolic alkalosis pH 7.39, pCO2 60.2, PO2 116, HC03 36, SpO2 98% on FiO2 0.28. -Continued DuoNebs every 4 hours and albuterol every 2 hours as needed for shortness of breath. 2. Acute systolic congestive heart failure exacerbation, present on admission. Resolved. -Patient presented with progressive worsening dyspnea. -BNP 163 and chest x-ray suggestive of mild CHF on imaging. -Echocardiogram demonstrated severely enlarged left ventricle with moderately to severely reduced function (EF 30-35%), mid-apical inferior wall akinesis, septal bounce due to pacemaker activation present, grossly normal right ventricular size with low normal function, and bioprosthetic aortic valve that is well seated and functioning well. Compared to the Echo done 01/15/2019, LVEF is more enlarged and LVEF has decreased from 35-40% to 30-35% on this study. -Received furosemide 40 mg IV in the ED. Received another dose of furosemide 60 mg IV upon admission. Cautious with aggressive diuresis (received furosemide 100 mg IV total and 24 hours) with a diuretic vacation on 07/04 then restarted home regimen of torsemide 40 mg in the morning and 20 mg in the evening. May need to be adjusted in future but held off due to possible CRISTIAN. Continued to monitor electrolytes closely and replete as necessary. -Continued strict I&O and daily weights. Net -5.6 L. -Continued cardiac medications including: metoprolol succinate 25 mg daily and restarted lisinopril 5 mg daily, pravastatin 40 mg daily, and spironolactone 25 mg daily (initially held due to CRISTIAN). 3. Possible acute kidney injury vs. new chronic kidney disease stage II, present on admission. Active. -Initial creatinine 1.4. Baseline appears to be 0.9-1.2. This may represent new baseline function versus CRISTIAN. If CRISTIAN it is multifactorial and secondary to acute respiratory decompensation, renal hypoperfusion due to hypervolemia, and medications that can potentially be nephrotoxic. -Avoided nephrotoxic agents. Initially held home medications with predisposition towards nephrotoxicity (i.e. allopurinol, lisinopril, spironolactone, and torsemide). Cautious with aggressive diuresis (received furosemide 100 mg IV total and 24 hours) with a diuretic vacation on 07/04 then restarted home regimen of torsemide 40 mg in the morning and 20 mg in the evening. May need to be adjusted in future but held off due to possible CRISTIAN. -Continued to optimize renal perfusion and avoid hypotension. -Continued to monitor renal function and electrolytes closely. Recommend BMP in 3-5 days to assess renal function and possible new baseline. 4. Acute type II DE, secondary to demand ischemia from decreased perfusion due to hypovolemia and acute respiratory decompensation, present on admission. Resolved. -Initial troponin 0.074 which tranded up to 0.084 continue trending -Patient denies chest pain and anginal like symptoms. -Continued aspirin 81 mg daily and pravastatin 40 mg daily. 5. Diabetes mellitus type II, non-insulin using, chronic, present on admission. Stable. -Hemoglobin A1c 6.8% indicative of good control. -Continued glipizide 2.5 mg daily. -Continued ACHS blood glucose checks and heart healthy/carbohydrate consistent diet. Will consider adding on low-dose correctional scale insulin to cover if glucose levels significantly elevated. 6. Normocytic anemia of chronic disease, present on admission. Stable. -Initial hemoglobin 11.9 which is the best his blood counts have been for some time. -No active symptoms of bleeding. Patient is on Eliquis and aspirin. -Continued trending blood counts periodically. 7. Paroxysmal atrial fibrillation status post cardiac ablation on Eliquis, present on admission. Stable. -Patient has recently undergone AV node ablation on 05/08/2019 and started on metoprolol succinate 50 mg twice daily. -Patient reported exertional dyspnea, unilateral LLE edema on exam, and lightheadedness. Venous Doppler ultrasound of left lower extremity negative for DVT. -Currently in sinus rhythm. Continue metoprolol succinate 50 mg twice daily. -Continued Eliquis 5 mg twice daily for VTE prophylaxis. Exam Vital Signs (past 8 hours): - 07/05/19 04:00 07/05/19 04:50 07/05/19 05:20 Temperature 98.2 F Pulse Rate 88 Respiratory Rate 22 Blood Pressure 118/59 L Pulse Oximetry 94 92 92 07/05/19 07:00 07/05/19 08:05 07/05/19 09:04 Temperature 97.6 F Pulse Rate 102 H 82 89 Respiratory Rate 20 16 Blood Pressure 112/61 Pulse Oximetry 93 98 07/05/19 09:38 Temperature Pulse Rate Respiratory Rate Blood Pressure Pulse Oximetry 98 Fraction of Inspired Oxygen 25 Oxygen Delivery Method Nasal Cannula Oxygen Flow Rate 2 Narrative Exam Narrative: General: Older gentleman sitting in bed and in no acute distress, appears older than stated age and chronically, well-developed, well-nourished, appropriately interactive. HEENT: Normocephalic, atraumatic. External ears without defect. Pupils equal, round, and reactive to light. Anicteric sclerae, moist conjunctivae, and no lid lag. Oropharynx free of erythema and cobble stoning with moist mucosa. Neck: Supple with full range of motion. No jugular venous distension. No bruits. No lymphadenopathy or thyromegaly. Cardiovascular: Regular rhythm and rate without murmurs, rubs, or gallops appreciated. Pulmonary: Coarse breath sounds throughout with mild improvement and likely at baseline. No wheeze. Normal respiratory effort without use of accessory muscles. Abdomen: Soft, bowel sounds present, nontender, nondistended. No hepatosplenomegaly or masses appreciated. Extremities: No clubbing or cyanosis. Mild bipedal edema with compression socks in place. Skin: Normal temperature, turgor, and texture; no rash, ulcers, or subcutaneous nodules appreciated. Neurological: Cranial nerves grossly intact. Psychiatric: Normal mood and affect. Alert and oriented to person, place, and time. Objective Labs Result Diagrams: 07/03/19 15:30 07/05/19 05:25 Labs: Laboratory Results - last 24 hr 07/04/19 07/05/19 18:55 05:25 Sodium 136 L Potassium 4.0 Chloride 94 L Carbon Dioxide 38 H BUN 44 H Creatinine 1.40 H Estimated GFR 50.2 L BUN/Creatinine Ratio 31.4 H Glucose 151 H Calcium 9.1 Magnesium 2.4 H Nasal Screen MRSA (PCR) Negative for mrsa Discharge Plan Discharge Plan Patient Disposition: Home Health Service Transfer to: [facility] Discharge comment: You are being discharged home to resume home health with PT/OT/Nursing. You were admitted for congestive heart failure exacerbation and respiratory failure. You qualify for Trilogy which is a breathing machine to wear at night and while napping to help below off your carbon dioxide as your COPD is advanced and you should receive a call at home regarding this from [facility]. Please follow-up with your primary care provider, Dr. Aden, in the next 1 week regarding your hospitalization and repeat kidney function test. You were placed back on your usual diuretic with torsemide and this may need to be adjusted in the future. Discharge Med Rec/Prescriptions Prescriptions: Continued spironolactone 25 MG tablet 25 mg PO DAILY Qty: 0 RF: 0 potassium chloride 20 mEq Tablet Extended Release 20 meq PO DAILY Qty: 0 RF: 0 allopurinol 100 mg tablet 100 mg PO DAILY PRN (Reason: Gout) RF: 0 diazepam 5 mg tablet 5 mg PO TID PRN (Reason: Anxiety) RF: 0 torsemide 20 mg tablet 40 mg PO QAM RF: 0 lisinopril 5 mg tablet 5 mg PO DAILY RF: 0 terazosin 2 MG capsule 6 mg PO BEDTIME RF: 0 torsemide 20 mg Tablet 20 mg PO QPM RF: 0 codeine-guaifenesin [Cheratussin AC] 10-100 mg/5 mL Liquid 5 ml PO Q4H PRN (Reason: Cough) RF: 0 loratadine 10 mg Tablet 10 mg PO DAILY RF: 0 citalopram 40 mg tablet 40 mg PO DAILY RF: 0 pravastatin 40 mg tablet 40 mg PO DAILY RF: 0 albuterol sulfate 90 mcg/actuation HFA aerosol inhaler 2 puff Inhalation Q4-6H PRN (Reason: Shortness Of Breath) RF: 0 oxycodone 5 mg tablet 5 mg PO Q6H PRN (Reason: Pain, Moderate) RF: 0 budesonide 0.25 mg/2 mL Suspension For Nebulization 0.25 mg INHALATION Q12H RF: 0 colchicine 0.6 mg tablet See Rx Instructions .ROUTE .COMPLEX PRN (Reason: Gout) RF: 0 glipizide 5 mg tablet 2.5 mg PO DAILY RF: 0 metoprolol succinate 25 mg tablet extended release 24 hr 25 mg PO DAILY RF: 0 albuterol sulfate 2.5 mg /3 mL (0.083 %) Solution For Nebulization 2.5 mg INHALATION Q4H PRN (Reason: Shortness Of Breath) RF: 0 calcium carbonate 600 mg calcium (1,500 mg) Tablet 1,500 mg PO DAILY RF: 0 acetaminophen 500 mg Capsule 500 mg PO TID PRN (Reason: pain) RF: 0 cholecalciferol (vitamin D3) [Vitamin D3] 1,000 unit Capsule 1,000 unit PO DAILY RF: 0 apixaban 5 mg tablet 5 mg PO BID RF: 0 Discontinued prednisone 10 mg tablet See Rx Instructions .ROUTE .COMPLEX RF: 0 Other Ambulatory Orders: Basic Metabolic Panel (Stat) Timeframe: 5 Days Facility: [facility] - Location: Laboratory Ordered By: Shannon Mauro Follow up/Referrals: Bobo Aden MD [Primary Care Provider] - 1 Week Provider Discharge Instructions Diet: Carb-consistent/Diabetic, Low-fat, Low-sodium and Low-cholesterol Activity: Activity as tolerated with forward wheeled walker and PT/OT Oxygen: Continuous 2L at all times, Triology while sleeping Visit Report/Discharge Packet Instructions: DI for Respiratory Failure, How to Use a Bilevel Positive Airway Pressure (BiPAP) Device Discharge Data Primary Care Provider: Bobo Aden V
--- NOTE | 2019-07-05 13:21 | PC.NURSE ---
pt prepared for discharge per MD cornejo- ARIA TO FOLLOW UP AT HOME FOR TRILOGY DEVICE SET UP AND DR NIELSON EXPLAINED ALL DISCHARGE PLANS TO BOTH PT AND DAUGHTER, JACKSON, BY PHONE- REMOVED IV ACCESS AND TELEMETRY- AWAITING DAUGHTERS ARRIVAL FOR DISCHARGE
--- NOTE | 2019-07-05 14:29 | CM.DPNOTE ---
DC Note: VENESSA Olivera assisting this POND WORKER today and reported to this POND WORKER that she met with pt and dtr this morning and both agreeable to DCP: home w/resume [facility] and O2/Trilogy through [facility]. RT has coordinated w/ [facility] to secure a new Trilogy machine for pt and hopefully a better overnight O2 set up, portable tank vs new air compressor. TC placed to [facility], updated w/ DC and faxed H+P, DC Summary and resumption of care orders. Jo Damon, POND WORKER
== END 2019-07-05 13:30 | disposition home health service (06) | DRG 280 ==
LOC: ED 16:40 → AC 17:07 → ICU 07-05 09:53
PROVIDERS: Emergency Medicine; Nurse Practitioner Gerontology; Admitting Provider Internal Medicine; Emergency Provider Emergency Medicine; Family Provider Internal Medicine; PCP Internal Medicine; Visit Provider Internal Medicine
DX: I13.0 Hypertensive heart and chronic kidney disease with heart failure and stage 1 through stage 4 chronic kidney disease, or unspecified chronic kidney disease (principal); I50.23 Acute on chronic systolic (congestive) heart failure; I21.A1 Myocardial infarction type 2; J96.21 Acute and chronic respiratory failure with hypoxia; J96.22 Acute and chronic respiratory failure with hypercapnia; N17.9 Acute kidney failure, unspecified; J44.1 Chronic obstructive pulmonary disease with (acute) exacerbation; E11.22 Type 2 diabetes mellitus with diabetic chronic kidney disease; I48.0 Paroxysmal atrial fibrillation; N18.2 Chronic kidney disease, stage 2 (mild); I25.10 Atherosclerotic heart disease of native coronary artery without angina pectoris; Z87.891 Personal history of nicotine dependence; D50.9 Iron deficiency anemia, unspecified
CPT/HCPCS: 36415; 36591; 36600; 71045; 80048; 80053; 81003; 82550; 82805; 82962; 83036; 83605; 83690; 83735; 83880; 84145; 84484; 85025; 85379; 87633; 87797; 93005; 93010; 93306; 93971; 94640; 94660; 94760; 96374; 99283; 99285; J1940; Q9957